=== PATIENT | male | born 1950 | race Caucasian/White ===

== ENCOUNTER 2021-10-09 02:57 | Inpatient (IN) | payer OTHER, MEDICARE ==
[~2021-10-09] VITALS: Ht 172.7 cm; Wt 87.7 kg
[~2021-10-09 02:57] MED LIST: CALCIUM + D3 E1 EACH PO; DIGOXIN250 MCG PO; IRON18 MG PO; METOPROLOL TART25 MG PO; MULTI-VITAMIN1 EACH PO; OMEPRAZOLE20 MG PO; POTASSIUM GLUCO99 MG PO; SERTRALINE HCL50 MG PO; SUPER B COMPLE1 EACH PO; WARFARIN SODIUM5 MG PO
--- NOTE | 2021-10-09 04:00 | NUR ---
PT ARRIVED TO ROOM 121, PT IS ALERT, CONFUSED. ELIJAH MORALES RN AND CHARGE PARAG HIDALGO RN ADMITTING PT.
--- NOTE | 2021-10-09 05:09 | NUR ---
PT FACES SCALE PAIN 4/10, PRN PAIN MED PROVIDED. ICE PACK ON LEFT HIP. IV WNL, FLUSHED WELL. PT WILL NOT LEAVE COVER OVER IV SITE. IV FLUIDS INFUSING PER ORDER. PT DISORIENTED TO ALL. PT MOVING AROUND IN BED FREQUENTLY, PULLING OFF HEART MONITOR, PULLING AT IV AND KICKING COVERS OFF. BED ALARM ON.
--- NOTE | 2021-10-09 05:23 | NUR ---
PT CONFUSED AT THIS TIME. HE IS NOT ORIENTED TO ANYTHING BUT SELF. HE HAS BEEN ADMINISTERED PAIN MEDICATION FOR FX HIP PAIN, HE IS ON TELEMETRY. HE IS ACTIVE IN BED, ATTEMPTED TO USE URINAL, DID NOT VOID AT THIS TIME.
--- NOTE | 2021-10-09 05:25 | NUR ---
BED ALARM ON FOR PT SAFETY ALSO ROOM ACROSS FROM NURSES STATION FOR CLOSE MONITORING, CALL LIGHT IN REACH
--- NOTE | 2021-10-09 05:45 | NUR ---
PT ADMITTED AT 0400, HE HAS DEMENTIA, ONLY ORIENTED TO SELF. NEEDS CLOSE MONITORING HE HAS BEEN TRYING TO PULL OFF TELEMETRY LEADS AND ATTEMPTING TO PULL OUT IV. BED ALARM ON FOR PT SAFETY, PT ROOM CLOSE TO NURSES STATION IN VIEW. CALL LIGHT IN REACH.
--- NOTE | 2021-10-09 06:23 | NUR ---
PT PULLED TELE OFF AND THREW IT ON THE FLOOR. CHANGED PT'S ATTENDS WITH HELP OF ANDREW ROSA. PT STATES HE IS IN PAIN BUT WAS GIVEN 0.5MG DILAUDID AT 0505. DR LOVETT CALLED TO CHECK ON PT, GAVE BRIEF UPDATE. PT IS VISABLE FROM RN STATION AND BED ALARM IS ON.
--- NOTE | 2021-10-09 06:52 | NUR ---
Dr Conner in room examining pt
--- NOTE | 2021-10-09 07:10 | NUR ---
this rn rececived report from julia mcbride. pt only oriented to self at this time. pt has just removed his iv, tele and underwear.
--- NOTE | 2021-10-09 08:00 | NUR ---
THIS RN IN PTS ROOM TO RESTART PTS IV AND GIVE PREOP ANTIBIOTIC AND TXA. PT TOLERATED TREMENTS WELL. LISSY COPPOLA IN ROOM PROVIDING 1ON1 CARE
--- NOTE | 2021-10-09 08:30 | NUR ---
THIS RN IN PTS ROOM TO ASSIST TO DO PTS WIPE DOWN. PT TOELRATED WELL
--- NOTE | 2021-10-09 10:00 | NUR ---
THIS RN CALLED PTS JACQUELINE ISIAH BIRCH TO GET CONSENT FOR ANESTHIA, CONSENT GIVEN
--- NOTE | 2021-10-09 10:19 | NUR ---
PT OFF FLOOR FOR SURGERY AT THIS TIME
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
--- NOTE | 2021-10-09 11:46 | NUR ---
10/09/21 1146 Sheets,Annetta 1136 PT ARRIVED TO PACU ON 8L VIA MASK AND ORAL AIRWAY IN PLACE. VSS. PT NONAROUSABLE AND RESP EVEN AND UNLABORED. JAW THRUST USED OFF AND ON.
--- NOTE | 2021-10-09 12:45 | NUR ---
PT ARRIVED BACK FROM SURGERY. PT APPEARS TO BE RESTING AT THIS TIME. KAYLEIGH RN REPORTED TO THIS RN THAT PT DOES HAVE SLEEP OBSTRUCTION AND STATED THAT PT SHOULD BE ON THE CPOX. THIS RN PLACED ON PT ON CPOX SATS MAINTAINING >92% ON ROOM AIR AT THIS TIME. DRESSING C/D/I WITH ICE PACK PLACED AT SITE
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
--- NOTE | 2021-10-09 13:45 | NUR ---
THIS RN IN PTS ROOM TO DO POST OPP #2. PT INCONTINENT OF URINE AT THIS TIME. LISSY COPPOLA TO ASSIST IN CHAGING PT. FULL BED CHANGE NEEDED. PT APPEARS VERY DROWSY BUT LISTENS TO COMMANDS. THIS RN NOTED THAT PTS DRESSING C/D/I. MORE NOTED BRUISING ON PTS BACK AND HIPS.
--- NOTE | 2021-10-09 14:30 | NUR ---
Spoke with [facility] and rehab about placement for this pt. They decline this pt.
--- NOTE | 2021-10-09 14:40 | NUR ---
POSTOP CHECK #3. PT RESTING COMFORTABLY AT THIS TIME. CPOX IN PLACE, APNIC BREATHING NOTED BUT SATS MAINTAINED WNL. DRESSING UNCHANGED- WNL- C/D/I
--- NOTE | 2021-10-09 15:20 | NUR ---
Called and spoke with [facility], Gilma, and Rosa Maria Becker in [place], there are no beds available for 2 weeks.
--- NOTE | 2021-10-09 15:45 | NUR ---
Called and spoke with Tracy Damico from [facility]. Ask about the [facility] Complex Placement team. She states this pt does not have an open case and he does not qualify for medicaid as he has too many resources. She did give me the number for complex placement. They are out of the office. I will contact them on Tuesday.
--- NOTE | 2021-10-09 15:50 | NUR ---
THIS RN IN PTS ROOM TO DO PTS POST OPP #4. PT RESTING AT THIS TIME. SOME SCANT SHADOWING NOTED ON PTS DRESSING. PT DOES NOT COMPLAIN OF PAIN AT THIS TIME, ONLY COMPLAINS WHEN HE IS CLEANED UP.
--- NOTE | 2021-10-09 16:41 | NUR ---
Spoke with Corie Jimenez [facility] Management. She will email Division and ask for direction for placement of this pt.
--- NOTE | 2021-10-09 17:00 | NUR ---
THIS RN IN PTS ROOM TO GIVE PT EVENING MEDS. PT GETTING CHANGED BY SELENE ROSA AND LISSY COPPOLA. PT AWAKE AND HAVING CONVERSATION WITH HIMSELF THAT THIS RN IS NOT FOLOOWING- FROM REPORT THIS IS BASELINE OF PT. PT TOOK MEDS WELL AND SIPPED WATER WELL.
--- NOTE | 2021-10-09 17:29 | NUR ---
MED REC COMPLETE
--- NOTE | 2021-10-09 19:47 | NUR ---
BEDSIDE REPORT FROM MATT ROSA, PT RESTING QUIELTY , RR EVEN 18 BPM, NO DISTRESS NOTED. FROM REPORT MATT ROSA SAID PT CONSUMED DINNER WELL, AWAKES AND COOPERATES WITH CARE THEN SLEEPS. REPORT IS HE HAS NOT SLEPT FOR 3 DAYS PRIOR TO SURGERY.
--- NOTE | 2021-10-09 21:39 | NUR ---
PT RESTING QUIETLY IN BED RR EVEN 20 BPM, NO DISTRESS NOTED AT THIS TIME.
--- NOTE | 2021-10-09 22:33 | NUR ---
PT RESTING IN BED EYES CLOSED RR EVEN AT 20 BPM, NO DISTRESS NOTED. PT ALERT TO NAME, HAD DRINK OF WATER, V/S COMPLETE, PT USED URINAL, AND HAD INCONT OF URINE, HE FLATUS POSITIVE, NO BM. HE ASSISTED WITH ROLLING IN BED FOR CHANGING DEPENDS AND CLEANING, NOTED RED AT SCROTUM FOLD RX POWDER APPLIED AFTER CLEANING, PT POSITIONED TO LEFT SIDE WITH PILLOW, FOR POSITION CHANGE. HE IS COOPERATIVE WITH ALL CARE.
--- NOTE | 2021-10-10 00:39 | NUR ---
PT ALERT TO RN AT BEDSIDE FOR ABX INFUSION, PT VERBALIZED HE NEEDS TO PEE, HE HAD SMALL INCONT IN ATTENDS, PT THEN VOIDED IN URINAL, NO BLOOD NOTED IN URINAL, WHEN CLEANING INCONT AND WIPE MEATUS NOTED TO HAVE SMALL AMOUNT OF LIGHT RED BLOOD DRIBBLE ON TO TISSUE. NO BLOOD IN ATTENDS. WILL MONITOR. APPEARS TO HAVE MILD TRAUMA FROM RIVERA PLACEMENT, PER POST OP XRAY REPORT RIVERA NOTED IN PLACE.
--- NOTE | 2021-10-10 02:10 | NUR ---
PT RESTING QUIETLY IN BED EYES CLOSED RR EVEN AT 20 BPM, NO DISTRESS NOTED.
--- NOTE | 2021-10-10 03:30 | NUR ---
ROUNDED ON PT ALERT TO STAFF AT BEDSIDE, JOSH COPPOLA ASKED IF PT NEEDED TO USE URINAL PT "YES, BADLY". PT VOIDED 200 ML IN URINAL, DID NOT NOTICE ANY SIGN OF BLOOD WITH CLEAN UP AFTER. PT REPOSITIONED, PILLOWED PLACED BETWEEN KNEES PT HAS HIS LEFT LEG TURNED IN AND RIGHT LEG NEARLY CROSSING LEFT. PT GRIMACED WHEN RE-POSITIONED AND BOOSTED UP IN BED, HE SAID HE NODDED WHEN ASKED IF HIS HIP WAS HURTING HE SAID "THATS OK". TRAMADOL ADMINISTER PER SCHEDULE AT THIS TIME. PT VERBALIZED HE IS COMFORTABLE AT THIS TIME.
--- NOTE | 2021-10-10 04:53 | NUR ---
PT HAS SLEPT COMFORTABLE OVER SHIFT, HE AWAKES EASILY AND HAS BEEN COOPERATIVE WITH CARE. HE HAS BEEN VOIDING IN URINAL WHEN OFFERED FREQUEST LESSENS INCONTINENCE. DESITIN POWDER IN ROOM FOR SCROTAL AND PANUS FOLDS RED, TURN Q2 HOURS. PAIN MEDICATIONS SCHEDULED. HE HAS FLATUS POSITIVE, ACTIVE BOWEL TONES, HE HAS BEEN TOLERATING REGULAR DIET WELL, NO NAUSEA. PILLOW PLACED BETWEEN LEGS HE ATTEMPTED TO CROSS HIS ANKLES, CONFUSED BUT COOPERATIVE, FOLLOW ING DIRECTION WELL, ABLE TO ASSIST IN TURNING IN BED FOR REPOSITION AND CHANGING DEPENDS. V/S STABLE ON ROOM. DRESSING CDI WITH SCANT DRAINAGE NOTED PROXIMAL END NO WARRANT SERVER THIS SHIFT. NOTED SCANT AMOUNT OF PINK RED BLOOD AFTER VOID AT MEATUS ONCE, PEPRHAPS FROM RIVERA PLACEMENT IN SURGERY PER XRAY REPORT. VOIDING MULTIPLE TIMES SINCE WITH NO PINK/RED BLOOD NOTED.
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
--- NOTE | 2021-10-10 08:50 | NUR ---
Scheduled medications administered, assessment complete. Pt sitting up in bed after breakfast watching tv. Alert, oriented to self, pleasant this am. VSS. IV site WNL. Dressing to L hip C/D/I. Pt reports no pain at this time.
--- NOTE | 2021-10-10 08:52 | NUR ---
patient is sitting up in the bed eating breakfast. warm washcloth and bed bath offered. call light with in reach. no further needs at this time.
--- NOTE | 2021-10-10 11:45 | NUR ---
Pt refuses lunch at this time, repositioned in bed and continues to watch tv, awakens to voice and has no needs.
--- NOTE | 2021-10-10 13:30 | NUR ---
Pt did not eat lunch today, ensure and cookie provided along with scheduled tramadol. Pt assisted to reposition and watching tv, states no needs. Call light in reach, in view of nurses station and curtain open.
--- NOTE | 2021-10-10 14:00 | NUR ---
Pt medicated with scheduled tramadol, states no pain at this time. Watching tv and in good spirits. Hip visualized, dressing C/D/I, no further shadowing or discharge noted.
--- NOTE | 2021-10-10 16:48 | NUR ---
Pt sitting up at bedside eating dinner, bed alarm on, directly visualized from nurses station. Pt on room air, no needs identified. Call light in reach
--- NOTE | 2021-10-10 17:12 | NUR ---
Scheduled meds provided, pt ate grapes from dinner tray and has sufficient PO intake of water, refuses other food/drinks. Watching tv, alert and oriented to self only. Able to take pills whole with water, no difficulty.
--- NOTE | 2021-10-10 17:51 | NUR ---
IN TO TAKE PATIENT OFF OF BED ESPINOZA. CLAY CARE DONE. NEW ATTENDS IN PLACE. LINENS CHANGED. VITALS AND I&O'S CHARTED. CALL LIGHT IN REACH. BED ALARM ON. NO FURTHER NEEDS AT THIS TIME.
--- NOTE | 2021-10-10 18:34 | NUR ---
Scheduled medications administered, pt states no pain at this time. Oriented to self only. Pt resting in bed with no needs, on room air. Lights dimmed with nightlight on, in view of nurses station and curtain partially open
--- NOTE | 2021-10-10 19:28 | NUR ---
BEDSIDE REPORT FROM KENNETH ROSA, PT RESTING IN BED ALERT. HE IS FIGITING WITH TISSUES TAKING IN AND PUTTING THEM BACK IN BOX. PER REPORT HE HAD JUST THOUGHT HE WAS GOING TO GET UP AND PACK HIS STUFF TO GO HOME, PT REORIENTED AND COOPERATIVE WITH CARE.
--- NOTE | 2021-10-10 19:45 | NUR ---
pt set off alarm, pt is concered he is in trouble for not looking like he is busy at work, reassured pt thet we have it covered, and no one will get in trouble, new attends in place, bed alarm is set, no further needs,, rn aware
--- NOTE | 2021-10-10 20:15 | NUR ---
pt trying to sit up in bed, states he needs to be working, trying to keep pt redircted, bed alarm is set, no further needs
--- NOTE | 2021-10-10 21:20 | NUR ---
PT RESTING IN BED WATCHING TV.
--- NOTE | 2021-10-10 21:48 | NUR ---
INTO PT ROOM TO ROUND, PT WATCHING TV, HE SAID "I NEED TO PEE" HE IS DISORIENTED TO EVENT AND HIP FX. ASSIST WITH URINAL, VOIDED 250ML CLEAR YELLOW URINE, HE ALSO HAD MEDIUM INCONT. OF URINE, PT CHANGED HE REPORTED INCREASE IN PAIN, HE ALSO GRIMACED, GAVE PT, SCHEDULED TRAMADOL AND SLEEP AID TRAZODONE 100MG PRN. PT REPOSITIONED AND PILLOW PLACED BETWEEN KNEES HE BENDS HIS LEFT KNEE INTO RIGHT. WILL APPLY ICE TO LEFT HIP WELL.
--- NOTE | 2021-10-10 22:59 | NUR ---
PT RESTLESS, GRIMACE WITH MOVEMENT, 5/10 AT LEFT HIP, NORCO 2 TABS PRN ADMINISTERED AT THIS TIME.
--- NOTE | 2021-10-11 00:33 | NUR ---
PT PULLING BLANKETS OFF AND ATTEMPTING TO GET OUT OF BED, HE VERBALIZES THAT HE NEEDS TO GO TO WORK, THIS RN TOLD HIM IT IS HIS DAY OFF AND HE NEEDS TO REST UP AT NIGHT PER DR. RAMON, HE THEN ASKED WHERE HIS IS, THIS RN SAID THE IS PROBABLY AT HOME ITS MIDNIGHT THIRTY, HE "YEAH PROBABLY" PT THEN REPOSITIONED IN BED, COVERED BACK UP, HE AGREES TO TRY TO SLEEP.
--- NOTE | 2021-10-11 00:44 | NUR ---
PT RESTING IN BED FIGITING WITH BLANKETS, HE REPORTS NO PAIN AT HIS HIP.
--- NOTE | 2021-10-11 00:50 | NUR ---
PT ATTEMPTING TO EXIT BED, SET OFF ALARM, HE SAID HE NEEDS TO GET HIS MOTOR DOWN THERE POINTING AT THE SCD MACHINE, EXPLAINED THIS TO PT, HE SAID NO ITS NOT, THIS RN, WELL IT IS GOING TO STAY RIGHT HERE WITH YOU. EXPLAINED HE NEEDS TO SLEEP NOW SO THAT HE CAN WORK WITH PHYSICAL THERAPY TOMORROW.
--- NOTE | 2021-10-11 02:36 | NUR ---
PT RESTING IN BED EYES CLOSED, RELAXED POSITION, WILL HOLD TRAMADOL UNITL 0300 TO ALLOW PT TO SLEEP.
--- NOTE | 2021-10-11 04:08 | NUR ---
PT WAS NOTED TO BE PAINFUL EARLY IN SHIFT GRIMACING WITH REPOSITIONING, VERBALIZED THAT HURTS, PT GIVEN DOSE OF NORCO AND THIS WAS AFFECTIVE, PT TOLERATED REPOSITIONING WITHOUT GRIMACING/MOANING OR VERBALIZING INCREASE IN PAIN, HE ALSO BECAME FAR MORE ACTIVE IN BED, ATTEMPTING TO GET OUT OF BED FREQUESTLY, HE HAS NOT SLEPT WELL OVER NIGHT, POSSIBLE 2 HOURS TOTAL OF SLEEP. HE REMAINS CONFUSED ABOUT WHERE/WHEN/WHAT IS HAPPENING DEPITE REORIENTATION ATTEMPTS, HE HAS VOIDED QUANTITY SUFFICIENT IN URINAL WITH SMALL INCONT WELL, SURGICAL DRESSING HAS SCANT AMOUNT OF DRAINAGE NO NEW DRAINAGE THIS SHIFT IT IS INTACT. ON ROOM AIR, TOLERATING PO INTAKE WELL.
--- NOTE | 2021-10-11 07:34 | NUR ---
THIS AM AT SHIFT CHANGE PT PULLED OFF SURGICAL DRESSING, CONSIDERED LEAVING OPEN TO AIR FOR TO SEE, HOWEVER PT KEPT REACHING TO TOUCH THE INCISION, CONCERN FOR HIM PULLING AT FELIPA SO REDRESSED, AND COVERED WITH PILLOW CASE VELCROED INTO DEPENDS, PT GIVEN FIGIT ITEM ON TABLE OVER BED TO DETOUR FROM REMOVING DRESSING AGAIN.
--- NOTE | 2021-10-11 07:34 | NUR ---
Report received from Meryl ROSA. Pt resting in bed with even and unlabored respirations, watching tv. Pt has no needs at this time. Will continue plan of care
--- NOTE | 2021-10-11 07:56 | NUR ---
PT AWAKE IN BED WATCHING TV. WARM CLOTH GIVEN FOR FACE. FRESH ICE WATER GIVEN. WHITE BOARD UPDATED. CALL LIGHT WITHIN REACH. NO FURTHER NEEDS AT THIS TIME
--- NOTE | 2021-10-11 08:16 | NUR ---
Scheduled medications administered, assessment complete. VSS. Pt alert, oriented to self only. Cooperative with care. TTWB with 1PA to chair for breakfast. SCDs in place, teds. Dressing to L hip C/D/I. Pt on room air. Chair alarm in place. No further needs, in view of nurses station
--- NOTE | 2021-10-11 09:44 | NUR ---
PT HAS NOT VOIDED. MOE MEDINA NOTIFIED.
--- NOTE | 2021-10-11 10:00 | NUR ---
Pt requiring frequent redirection, distraction tools, communication as he continues to exit bed and is not cognizant of toe touch weight bearing on L leg. Bed alarm on.
--- NOTE | 2021-10-11 10:06 | NUR ---
Pt continually exiting chair, back to bed with 2PA assist, bed alarm on. Pt reports pain with ambulation, none once at rest. Pt given towels to fold, engaged and attentive to this task. In view of nurses station.
--- NOTE | 2021-10-11 10:45 | NUR ---
In patient room to assist with repositioning, chase wrap given to hold, towels to fold.
--- NOTE | 2021-10-11 11:33 | NUR ---
Pt given playdough and cup with JOURNALISM TEACHER and RN at bedside
--- NOTE | 2021-10-11 12:30 | NUR ---
PT AWAKE IN CHAIR AND PLEASANTLY CHATTY. PT PLAYING WITH PLAY-KOTA AND A DECK OF CARDS. THIS PYRIDINE RECOVERY OPERATOR HELPED THE PT ORGANIZE CUPS AND FOLD HAND TOWELS. CHAIR ALARM ON.
--- NOTE | 2021-10-11 13:18 | NUR ---
Pt sitting up to chair after walking in hallway with physical therapist. Occupied with playdough and cards. Has no needs identified at this time. Chair alarm in place, in view of nurses station.
--- NOTE | 2021-10-11 14:30 | NUR ---
Pt back to bed with 2PA and FWW. He states he is "not tired", immediately closes eyes, even and unlabored respirations. Belongings within reach, call light in reach, bed alarm on, in view of nurses station.
--- NOTE | 2021-10-11 17:30 | NUR ---
Pt assisted to use urinal sitting at EOB. Repositioned in bed with 2PA. Pt content at this time, confused however. Call light in reach, in view of nurses station
--- NOTE | 2021-10-11 17:46 | NUR ---
Pt uses call light, states needing to "get up and go to work" attempted to console and redirect. Pt grimaces with movement, restless, this RN offers pain pill and pt states "I would try one". 1tab [place] administered. Will cont to monitor
--- NOTE | 2021-10-11 18:06 | NUR ---
PT WALKED TO THE BATHROOM WITH 2PA AND FWW AND GAIT BELT. PT HAS IN ICE PACK IN BED NOW WATCHING TV. CALL LIGHT WITHIN REACH. BED ALARM ON. NO FURTHER NEEDS AT THIS TIME.
--- NOTE | 2021-10-11 22:22 | NUR ---
PT ATTEMPTNG TO GET OUT OF BED, RN INTO ROOM PT VERBALIZED NEED TO PEE, NO OTHER STAFF AVAILABLE TO ASSIST TO AMBULATE AT THIS TIME. PT ASSISTED IN USING THE URINAL, HE WAS ALSO INCONTINENT IN DEPENDS. PT COOPERATIVE WITH CARE. BUSINESS INTELLIGENCE DEVELOPER BAILEY AND ANAT WATERMAN INTO ASSIST WITH CHANGING PATIENT OF INCONTINENCE PT ABLE TO ASSIST IN ROLLING IN BED. PT CLEANED AND RX POWDER APPLIED. HS MEDS WITH TRAZODONE 100MG GIVEN PRN FOR SLEEP AID PASS COMPLETE, ASSESSMENT AND V/S COMPLETE. PT VERBALIZED NO OTHER CONCERNS AND THANKED STAFF FOR ASSISTANCE. HE HAS BEEN COOPERATIVE WITH CARE.
--- NOTE | 2021-10-11 23:32 | NUR ---
PT SET OFF BED ALARM ATTEMPTING TO EXIT BED, THIS RN INTO ROOM, PT SAID, I NEED TO PEE. NO STAFF AVAILABLE TO ASSIST SECOND TO AMBULATE, PT ASSIST TO VOID USING URINAL. VOIDED 200ML CLEAR YELLOW URINE.
--- NOTE | 2021-10-12 00:54 | NUR ---
PT SET OFF BED ALARM, STAFF INTO ROOM, ASKED HIM WHERE ARE YOU GOING? HE SAID, "I AM GOING TO GO FOR LUNCH" RE-ORIENTED PT TO THE TIME 0100 IN THE AM, HE SAID "YOUR JOKING ME" RN SAID NO IT REALLY IS LOOK OUT THE WINDOW, HE DID THEN AND SAID "WHAT" HE LOOKED AT ANAT WATERMAN AND SAID "I SHE RIGHT?" COLUMBA SAID "YES SHE IS RIGHT"
--- NOTE | 2021-10-12 00:59 | NUR ---
PT AGAIN ATTEMPTING TO EXIT BED HE SAID, "I'M GOING TO PUT MY SHOES ON AND GO TO LUNCH", ATTEMPTED TO REORIENT PT TO TIME, HE SAID "OK I WILL GO BACK TO SLEEP NOW" BED ALARM ON FOR SAFETY.
--- NOTE | 2021-10-12 01:12 | NUR ---
pt attempted to get out of bed setting off bed alarm, staff into room, pt again said he is going to go to lunch, sat pt up at this time with lunch box sandwich, he is satisfied with this arrangement at this time.
--- NOTE | 2021-10-12 01:55 | NUR ---
PT ATTEMPTING TO PUSH OVER BEDSIDE TABLE. INTO PT ROOM TO ASSESS HIS NEEDS. HE SAID HE WANTS THE TABLE MOVED, HE TURNED TO RIGHT SIDE OF BED AND APPEARED TO BE TALKING TO SOMEONE, THIS RN ASKED IF HE SAW SOMEONE OVER THERE?, HE LAUGHED AND SAID "NO", THEN AGREED TO SETTLE DOWN TO SLEEP, BED ALARM ON FOR PT SAFETY.
--- NOTE | 2021-10-12 02:22 | NUR ---
PT IS TALKING TO SOMEONE IN BED WITH HIM, RN ASKED WHO ARE YOU TALKING TO? HE SAID SANNA AND POINTED BEDSIDE HIM IN BED, THIS RN SAID, "I DONT SEE ANYBODY" PATIENT SAID, "SHE IS RIGHT THERE, I HAVE KNOWN HER HER WHOLE LIFE" THIS RN THEN TALKED TO PT ABOUT TRYING TO GET SOME SLEEP, HE SAID "OK, I CAN TRY TO DO THAT" BED ALARM ON FOR SAFETY.
--- NOTE | 2021-10-12 03:08 | NUR ---
PT CURRENTLY RESTING IN BED EYES CLOSED RR EVEN AT 16BPM.
--- NOTE | 2021-10-12 04:35 | NUR ---
PT AWAKE MOST OF SHIFT, SLEPT LAST THREE HOURS, PAINFUL THIS AM WITH REPOSITIONING, ONE TAB NORCO GIVEN WITH ULTRAM. PT RESTLESS WANTING TO GO TO LUNCH AT 0100, FINALLY PROVIDED A LUNCH BOX THAT HE CONSUMED HALF OF HE WAS SHARING WITH JACQUELINE HIS PER HIS REPORT, NO VISITORS IN PT ROOM AT THIS TIME. ASKED PT IS HE SAW SOMEONE HE LAUGHED AND SAID NO, LATER HE WANTED TO TO A MOVIE ON FOR HIMSELF AND JANUARY HE POINTED TO IN BED WITH HIM, NO OTHER PEOPLE IN ROOM, PT INSISTED SHE WAS IN THE BED WITH HIM. PT THEM SLEPT. HAS VOIDED Q.S. OVER SHIFT, HAS BEEN COOPERATIVE WITH CARE, ALTHOUGH CONFUSED TO ALL BUT SELF.
--- NOTE | 2021-10-12 06:22 | NUR ---
CALLED DUE TO PT ESCALATION THIS AM , PT UP TWO STAFF ASSIST WITH FWW TO BATHROOM, PT REPORT INCREASE IN PAIN, PT VOIDED 300ML IN TOILET, THEN ASSISTED BACK PT WAS GOING TO ATTEMPT TO PEE ON BED, DIRECTED PT TO SIT DOWN ON BED, HE RAISED HIS VOICE AND SAID "I DID NOT PEE....AT ALL, I AM GOING TO PEE RIGHT HERE" URINAL HANDED TO PT AND ASSISTED TO VOID, PT SAT AT EDGE OF BED TRYING TO VOID, GAVE PT AM MEDS, HE SAID HE DIDNT NEED THEM , RN EDUCATED/REORIENTED PT THAT HIS HIP HAS HAD SURGERY AND IT WILL CONTINUE TO HURT MORE WITH ACTIVITY. HE AGREED THAT HIS HIP HURT AND HE SHOULD HAVE PAIN MEDS, HE THEN REFUSED TO GET BACK IN BED, HE SAID HE WANTS TO SIT UP, ASKED IF HE WANTS TO SIT UP IN RECLINER HE SAID "YES", ASSITED TO STAND, PT THEN FACED RECLINER AND SAID IM GOING TO PEE RIGHT HERE, DIRESTED PT TO SIT THAT CHAIR IS THE RECLINER, HE THEN TURNED AND PULLED HIS ARM AWAY FROM MY ASSISTANCE AND SAT DOWN HARD. HE THEN FLUSHED RED AND SAID "IM FINE" IN AN RAISED VOICE. ANAT WATERMAN ATTEMPTING TO GET V/S PT STOPPED TALKING TO HER, CLINCHING JAW MUSCLES, THIS RN ON OTHER SIDE OF BED, TOLD SUMMONS SERVER TO GET OUT OF THAT AREA, SINTA TURNED AROUND AND PT IS MASTURBATING. STAFF WENT TO LEAVE ROOM, PT BEGAN TO GET UP OUT OF RECLINER WITH FOOT PORTION UP. TURNER SPLITTER MACHINE OPERATOR MOE OBREGON AND ANDREW WOOD HACKER INTO ROOM TO ASSIST, PT NOT WANTING TO COOPERATE, SECURITY CALLED PT THEN SETTLED INTO BED WITH ASSIST, THIS RN WAS GIVEN MEDICATION ORDERS TO GIVE SEROQUEL AM DOSE AND 2MG OF HALDOL, THIS RN INTO ROOM PT AGAIN MASTURBATING, FLOAT RN INTO ROOM, PT STOPPED, AGREED TO SWALLOW MEDICATIONS AND HALDOL IV GIVEN.
--- NOTE | 2021-10-12 06:36 | NUR ---
PT NOW CALM AT REST IN BED. EYES OPES, NO DISTRESS NOTED
--- NOTE | 2021-10-12 07:33 | NUR ---
Report received from Meryl ROSA. Pt resting in bed with eyes closed, even and unlabored respirations. Awakens to voice, pleasant and cooperative this am. No needs identified at this time, bed alarm on, will continue plan of care.
--- NOTE | 2021-10-12 08:08 | NUR ---
PT RESTING IN BED. BED ALARM ON. WILL CHECK BACK WITH PT FOR BREAKFAST. CALL LIGHT WITHIN REACH. NO FURTHER NEEDS AT THIS TIME.
--- NOTE | 2021-10-12 08:44 | NUR ---
Pt sleeping at this time, allowed to rest undisturbed as per report pt did not sleep well last night requiring PRN meds
--- NOTE | 2021-10-12 09:15 | NUR ---
Pt resting in bed with eyes closed, respirations even and unlabored. Bed alarm in place. Able to visualize from nurses station
--- NOTE | 2021-10-12 10:15 | NUR ---
All medications administered, pt awakens easily to voice, cooperative with care. Alert, disoriented to all, tells this RN that "the children had a great program last night". Dressing to L hip C/D/I, no drainage, pt reports no pain, scheduled tramadol provided. bed alarm on, call light in reach
--- NOTE | 2021-10-12 10:52 | NUR ---
PATIENT UP TO CHAIR, 1PA FWW. PATIENT FOLLOWED DIRECTIONS WELL. CLAY CARE DONE. NEW ATTENDS IN PLACE. VITALS AND I&O'S CHARTED. CALL LIGHT IN REACH. CHAIR ALARM ON. NO FURTHER NEEDS AT THIS TIME.
--- NOTE | 2021-10-12 11:00 | NUR ---
Was able to speak with Patricia from [facility] in [place]. She requests chart. They will take combative pt with behaviors. She does not a availability today, due to staffing. I will fax his chart, she does need a copy of his covid vaccinations. They do not accept pt who have not been vaccinated. Will contact pts .
--- NOTE | 2021-10-12 14:00 | NUR ---
Received a return call from Keren from [facility]. She is cont. to work for medicaid for this pt. I discussed with her I spoke with Tracy Damico and she felt per notes this pt does not qualify. This pt is over income and resources. Keren is not in agreement with this and states she is working with for a POA and they can work towards payin for the pt. Discussed I am attempting to find placement in a SNF for rehab due to fx hip. This may difficult due to pts behaviors. She will call me with any updates.
--- NOTE | 2021-10-12 14:30 | NUR ---
Called and spoke with pt's Dede. Updated I am attempting to place in a SNF. I am in need of a Covid vaccination card. She states pt was vaccinated at [facility] in [place]. I will call and requests pts vax card.
--- NOTE | 2021-10-12 14:45 | NUR ---
Pt done with physical therapy and back to chair. Noted to be grimacing and slightly restless, PRN norco and scheduled tylenol administered. VSS, alert, I/Os complete. Pt refuses to use the urinal and attends is dry.
--- NOTE | 2021-10-12 15:08 | NUR ---
Spoke with Dr. Conner updated, I have not been able to find placement as pt was declined by [facility], [facility] and [facility] are not accepting pts. [facility] does not have any beds open. All are concerned about pts behaviors. [facility] may have availability in the near future, but do not as they don't have staff. Requested rx and note for walker for this pt. He will complete tomorrow.
--- NOTE | 2021-10-12 15:13 | NUR ---
Spoke with [facility] in [place]. They will fax documentation for Covid Vaccinations.
--- NOTE | 2021-10-12 16:35 | NUR ---
Faxed referral to Patricia at [facility] in [facility] for rehab. Face sheet, covid vaccination sheet from [facility], progress notes, surgical note, H&P, PT eval and notes.
--- NOTE | 2021-10-12 17:00 | NUR ---
Scheduled medications administered, pt sitting up in chair, awakens to voice. States no pain and no needs. He takes pills whole with water. Call light in reach
--- NOTE | 2021-10-12 19:04 | NUR ---
PATIENT SITTING IN CHAIR WATCHING TV. PATIENT IS CALM AND COOPERATIVE. VITALS AND I&O'S CHARTED. PATIENT UP TO BATHROOM, 1PA FWW. PATIENT DOING WELL USING FWW AND AMBULATING TO BATHROOM. PATIENT THEN TO BED, 1PA FWW. CLAY CARE DONE. NEW ATTENDS IN PLACE. FRESH WATER GIVEN. CALL LIGHT IN REACH. BED ALARM ON. NO FURTHER NEEDS AT THIS TIME.
--- NOTE | 2021-10-12 19:35 | NUR ---
IN TO SEE PT, PT RESTING IN BED AWAKE WATCHING TV. RECIEVED HAND OFF REPROT. NO NEEDS PER REQUEST. CALL LIGHT IN REACH.
--- NOTE | 2021-10-12 20:00 | NUR ---
PATIENT SEEN NO GOWN AND C/O COLD. THIS MEAT BUTCHER PUT NEW GOWN AND WARM BLANKET PROVIDED. PATIENT IS UP IN THE CHAIR AND CHAIR ALARM ON FOR SAFETY.
--- NOTE | 2021-10-12 20:20 | NUR ---
BED ALARMING. IN TO ASSIST. pt SITTING ON SIDE OF BED. REMINDED pt THAT HE HAD A BROKEN HIP AND NEEDED ASSISTANCE TO WALK. pt STATED "I DO NOT, I DIDN'T DO ANYTHING TO MY HIP!" WHEN OFFERED THE WALKER pt LOUDLY STATED "I DON'T NEED IT! YOU NEED TO GIVE ME SOME SPACE!" THIS RN GAVE pt SPACE. pt ATTEMPTED TO STAND A FEW TIMES. REPEATLY ASKED FOR HIS THE BE CALLED. STATED "YOU NEED TO STOP LYING TO ME AND CALL MY . I'M GOING HOME." SEVERAL ATTEMPTS TO REORIENT TO SITUATION. pt STATED "I DON'T LIKE THIS SHOW" GESTURING TO THE TV "THE BLACK PEOPLE ARE ALL BAD" TV CHANNEL CHANGED TO SPORTS. pt ATTEMPTED TO GET TO CHAIR, REFUSED WALKER. CHAIR MOVED NEXT TO BED. pt WAS ABLE TO MOVE SELF TO CHAIR BY STANDING AND SCOOTING ON HIS GOOD LEG, WHEN BEARING ANY WEIGHT ON LEFT LEG pt GRIMACED. pt REFUSED ASSISTANCE. SETTLED IN CHAIR. PRIMARY RNS IN ROOM, UPDATED ON SITUATION.
--- NOTE | 2021-10-12 20:36 | NUR ---
IN TO SEE PT, SCHEDULED MEDICATIONS DUE. PT UP IN CHAIR WATCHING TV. PT ALERT TO SELF ONLY. PLEASANT ANDC OOPERATIVE WITH STAFF AND CARES. VSS OBTAINED. NO OTHER NEEDS OR REQUESTS AT THIS TIME. CALL LIGHT IN REACH.
--- NOTE | 2021-10-12 22:24 | NUR ---
IN TO SEE PT, SCHEDULED MEDICATIONS GIVEN. ASSESSMENT DUE. PT SITTING UP IN CHAIR WATCHING TV. PLEASANT AND COOPERATIVE WITH CARES. NO OTHER NEEDS OR REQUESTS AT THIS TIME. CALL LIGHT IN REACH.
--- NOTE | 2021-10-13 01:20 | NUR ---
IN TO CHECK ON PT. PT SITTING UP IN CHAIR. PT DEDNIES PAIN AND DISCOMFORT. PLEASANT AND COOPERATIVE WITH STAFF AND CARES. NO NEEDS OR REQUESTS AT THIS TIME. CALL LIGHT IN REACH.
--- NOTE | 2021-10-13 02:20 | NUR ---
IN TO SEE PT, SCHEDULED TRAMADOL GIVEN PER ORDER. ASSISTED PT UP TO USE RESTROOM. PT ABLE TO VOID WITHOUT DIFFIUCLTY. PT ASSISTED TO BED. BED ALARM ON. PT DENIED PAIN, BUT VERBALIZED WHILE AMBULTATING TO BATHROOM. ASSESSMENT COMPLETED. NO OTHER NEEDS OR REQUESTS AT THIS TIME. CALL LIGHT IN REACH.
--- NOTE | 2021-10-13 03:34 | NUR ---
PT RESTING IN BED. EQUAL CHEST RISE AND FALL. BED ALARM ON. CALL LIGHT IN REACH.
--- NOTE | 2021-10-13 03:43 | NUR ---
IN TO SEE PT. PT ASSISTED UP TO CHAIR. NO OTHER NEEDS. CALL LIGHT IN REACH.
--- NOTE | 2021-10-13 06:20 | NUR ---
SCHEDULED MEDICATIONS GIVEN. PT DENEIS PAIN. UP IN CHAIR WATHCING TV. NO OTHER NEEDS, CHAIR ALARM ON, CALL LIGHT IN REACH.
--- NOTE | 2021-10-13 06:25 | NUR ---
ALERT TO SELF, FORGETFUL. REG DIET. 2P SBA WITH WALKER. CONT. RA. PAIN MAGEMENT WITH TRAMADOL. UP TO CHAIR. SL. WORKING WITH PT. RAMIREZ ON CHAIR AND BED FOR SAFETY. EASILY REDIRECTED. MEDICATION [place]O WITH WATER.
--- NOTE | 2021-10-13 07:20 | NUR ---
Report received from Bon ROSA. Pt sitting up in chair, awake, oriented to self only. He states his "hip hurts", per report pt just received pain medication, ice to L hip. Will continue to monitor. Pt states no other needs. Call light in reach, chair alarm in place, in view of nurses station
--- NOTE | 2021-10-13 08:30 | NUR ---
scheduled medications administered, assessment complete. Pt complains of hip pain, 1 tab norco provided along with ice pack to L Hip, C/D/I dressing. Pt up to chair. VSS, Alert but oriented to self only. Pt cooperative with care at this time. Chair alarm in place. In view of nurses station, call light in patient's hand
--- NOTE | 2021-10-13 09:54 | NUR ---
PATIENT UP TO BATHROOM AND BACK TO CHAIR, 1PA FWW. PATIENT FOLLOWING DIRECTIONS WELL AND BEING COOPERATIVE. VITALS AND I&O'S CHARTED. CALL LIGHT IN REACH. NO FURTHER NEEDS AT THIS TIME.
--- NOTE | 2021-10-13 10:03 | NUR ---
Called [facility]. Admission states they do take pt with dementia and who are combative. They are full with a 6 week waiting list. Called [facility] [employer] and asked if they have a list of SNFS that will take pt that can be combative. Pt has not been combative since admission to the medical floor and is in fact pleasant.
--- NOTE | 2021-10-13 10:40 | NUR ---
Spoke with Valentin, he is pleasant. Thinks he is here to start a new job and wanting to know what his atire will be. Also wanting to know who the Sergeant in charge is.
--- NOTE | 2021-10-13 11:10 | NUR ---
Pt continues to sit up from chair, chair alarm alarming, pt reminded to sit back in chair. Scheduled tramadol administered. New ice pack to L hip. Warm blankets provided. Pt becoming slightly restless to leave, attempted to redirect. Will continue to monitor.
--- NOTE | 2021-10-13 12:15 | NUR ---
Crystal from [facility] here to eval another pt. Asks if she can evaluate Valentin as he had been sedated last time she attempted to evaluate. In to patients room and Christina evaluated. She will discuss with their director if they will consider dariusz this pt.
--- NOTE | 2021-10-13 13:45 | NUR ---
Pt noted to be grimacing, new ice pack given, prn [place] and tramadol administered. Pt up to BR with 1PA and FWW, void and BM, back to bed, bed alarm on. Call light in reach, in view of nurses station, no further needs at this time
--- NOTE | 2021-10-13 15:41 | NUR ---
PATIENT PULLED IV OUT, SITTING AT BEDSIDE WITH BED ALARM ON.
--- NOTE | 2021-10-13 16:17 | NUR ---
LEXUS REPLACED TO [facility].
--- NOTE | 2021-10-13 16:40 | NUR ---
Attempted to call Kaylen from [facility] to check where they are on POA or guardianship. Let message stating it is now my understanding this pt does not have any charges or restraining order against him. He will need to discharge to home. I discussed this with Corie Jimenez from [employer] and they are discussing with legal as pt has remained at the hospital since Sep 15 as [facility] has been stating he cannot return home.
--- NOTE | 2021-10-13 16:45 | NUR ---
Spoke with [facility]. They have 1 bed open and may have more this week. Faxed chart for her to review.
--- NOTE | 2021-10-13 17:18 | NUR ---
Scheduled medications adminstered. Pt sitting up at edge of bed, eating dinner, talkative and cooperative with care. Takes verbal cues to take pills after several attempts.
--- NOTE | 2021-10-13 18:37 | NUR ---
Sat with patient and talked for approx 30 min, he is calm and cooperative with staff at this time, has moments of confusion/agitation but is redirectable without further PRN meds.
--- NOTE | 2021-10-13 19:20 | NUR ---
PT UP TO USE THE BATHROOM WITH DISHA wild. PT RECLINED IN CHAIR AT THIS TIME. NO NEEDS. CALL LIGHT IN REACH.
--- NOTE | 2021-10-13 20:12 | NUR ---
SCHEDULED MEDICATIONS GIVE, PT DENIES PAIN. PT UP IN CHAIR. ASSESSMENT COMPLETED.
--- NOTE | 2021-10-13 20:15 | NUR ---
PATIENT IS 1 ON 1 WITH STAFF. PATIENT IS COMBATIVE AND IS THROWING HIS BELONGINGS. PATIENT IS NOT REDIRECTABLE AT THIS TIME. STAFF WILL REMAIN IN ROOM WITH PATIENT FOR SAFETY.
--- NOTE | 2021-10-13 20:57 | NUR ---
SCHEDULED TRAZAODONE 50MG GIVEN PER ORDER. MOE NEIL SITTING IN ROOM EITH PT. PT IN CHAIR. CALL LIGHT IN REACH.
--- NOTE | 2021-10-13 21:18 | NUR ---
PATIENT IS AGITATED AND WILL NOT STAY IN HIS CHAIR. PATIENT OFFERED TO WALK, PATIENT REFUSES. PATIENT HAS THROWN ALL OF HIS STUFF OFF HIS NIGHT TIME TABLE. PATIENT HAS BECOME A 1 ON 1. PATIENT IS NOT REDIRECTABLE AT THIS TIME. IV STARTED. PRN AGITATION MEDICATION GIVEN PER ORDER. PATIENT REMAINS 1 ON 1 WITH STAFF PRESENT IN THE ROOM.
--- NOTE | 2021-10-13 22:20 | NUR ---
PATIENT ASSISTED TO THE RESTROOM A 1PA W/FWW. PATIENT WAS ABLE TO VOID AND HAVE BM. PATIENT IS RESTING IN RECLINER WITH CHAIR ALARM ON. PATIENT GIVEN SCHEDULED PAIN MEDICATION. CALL LIGHT IN REACH.
--- NOTE | 2021-10-13 22:51 | NUR ---
PATIENT ASSISTED TO THE RESTROOM A 1PA W/FWW. PATIENT WAS ABLE TO VOID. PATIENT IS BACK IN RECLINER RESTING. CHAIR ALARM ON FOR SAFETY. BELONGINGS ARE WITHIN REACH. PATIENT IS WITHIN EYE SIGHT OF RN STATION.
--- NOTE | 2021-10-14 01:00 | NUR ---
PT RESTING IN CHAIR WITH EYES CLOSED. EQUAL CHEST RISE AND FALL. CALL LIGHT IN REACH.
--- NOTE | 2021-10-14 02:50 | NUR ---
in to see pt. scheduled tramadol given per order. pt reports pain 11/12. assisted pt to restroom to void. pt up in recliner. mo other needs. chair alarm on, call light in reach.
--- NOTE | 2021-10-14 03:54 | NUR ---
IN TO SEE PT, ASSESSMENT DUE. PT SITTING UP IN CHAIR. COLORED PENCILS AND PAPER PROVIDED. PT DENIES PAIN. IV FLUSHING WELL. NO S/SX OF PHELIBITIS OR INFILTRATION. CHAIR ALRAM ON. CALL LIGHT IN REACH.
--- NOTE | 2021-10-14 06:23 | NUR ---
ALERT ONLY TO SELF, REG DIET. RA. FALL RISK CHAIR ALARM. 1 PA WITH WALKER. NEEDS RE-ORIENTING AND CUEING. IV PLACED TO RFA, SL. WORKING WITH PT. DRESSING TO LEFT HIP C/D/I. PRN AGITATION MEDICATION GIVEN X 1.
--- NOTE | 2021-10-14 07:15 | NUR ---
BEDSIDE REPORT FROM LASHAY ROSA ORIENT WITH AYESHA ROSA, PT SITTING UP IN RECLINER WITH BEDSIDE TABLE, HE HAS ITEMS ON TABLE TO FIGIT WITH, HE HAS BEEN FOLDING TOWELS, PER REPORT FROM CONTENT ASSISTANT HE HAS REQUIRED HALDOL X1 EARLY IN SHIFT THIS WAS AFFECTIVE, PT HAS BEEN COOPERATIVE PER REPORT.
--- NOTE | 2021-10-14 08:07 | NUR ---
PT COOPERATIVE WITH CARE THIS AM AND ASSESSMENT. AM MEDICATIONS PASSED, V/S COMPLETE THIS AM.
--- NOTE | 2021-10-14 09:32 | NUR ---
PT SITTING UP IN RECLINER, HE HAS CONSUMED 100% OF BREAKFAST.
--- NOTE | 2021-10-14 09:45 | NUR ---
RN MANNY NOTIFIED OF NON EXISTENT AM OUTPUT. CALL LIGHT WITHIN REACH, NO FURTHER NEEDS AT THIS TIME. PT'S BRIEF IS DRY.
--- NOTE | 2021-10-14 10:30 | NUR ---
Spoke with Valentin. Gave him coloring pts with color crayons. He is tearing his playing cards apart. Cont. confused.
--- NOTE | 2021-10-14 11:13 | NUR ---
PT SITTING IN CHAIR, PLAYING CARDS. PT HAS TV ON AND SEEMS PLEASANT. SAID PAIN IS LESS EACH DAY. GAVE GIsaakPOST, HE HANDED TO AN IMAGINARY PERSON IN WHO HE SAID, "DOES ALL THE READING". GAVE BLESSING AND WILL FOLLOW
--- NOTE | 2021-10-14 12:04 | NUR ---
PT ATTEMPTING TO GET OUT OF CHAIR, CHAIR ALARM SET OFF, RN INTO ASSIST PT, LUNCH TRAY ARRIVED, PT SET UP TO EAT. HE SAID, "HE NEEDS A TRAY" POINTING BACK BEHIND
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
--- NOTE | 2021-10-14 14:39 | NUR ---
PT RESTING IN BED EYES CLOSED, ALERT TO RN AT BEDSIDE.
--- NOTE | 2021-10-14 15:02 | NUR ---
PT UP TO SIDE OF BED, SET OFF BED ALARM. RN INTO ROOM, ASKED PT WHAT HE NEEDS, HE SAID HE NEEDS TO PEE. PT PROVIDED URINAL VOIDED 150ML CLEAR YELLOW URINE, THEN PT SAID HE NEEDED TO POOP, PROVIDED BEDSIDE COMMODE PT SAID HE DID NOT FEEL LIKE HE COULD WALK THAT FAR. PT REPORTS PAIN AT LEFT HIP, HE HAS JUST BEEN ADMINISTERED TRAMADOL PER SCHEDULED PAIN REGIMEN.
--- NOTE | 2021-10-14 15:08 | NUR ---
Called and was able to speak with [facility].She states they have been flooded with referrals. They are currently reviewing charts at this time. Will let me know tomorrow if pt has been accepted.
--- NOTE | 2021-10-14 15:09 | NUR ---
Received a call from Annetta at [facility]. She states she sent pts orders for a walker to [facility] as pt lives in [place]. Updated I highly doubt pt will return home and this is why I asked for the walker to be delivered to the hospital. She states she will send it through and hopefully deliver tomorrow.
--- NOTE | 2021-10-14 15:40 | NUR ---
bedside report from adi rn, pt resp rate reg, eyes closed. call light in reach -
--- NOTE | 2021-10-14 16:43 | NUR ---
checked with collector of internal revenue about pt sleeping currently - and po protonix for 16 - ok to give with 1730 meds at dinner.
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
--- NOTE | 2021-10-14 18:06 | NUR ---
pt cont. to be in bathroom with hot metal charger and Dr. Simental attempting to get him to cooperated to return to bed, or chair - security here.
--- NOTE | 2021-10-14 18:56 | NUR ---
pt in line of site of rn at nurses . he is awake, eyes open looking around and grabing at pulse ox. closes eyes again and rests. resp. even unlabored.
--- NOTE | 2021-10-14 19:30 | NUR ---
PT RESTING IN CHAIR WITH EYS CLOSED, WAKENS WITH VOICE. NO NEEDS.CHAIR ALARM ON. CALL LIGHT IN REACH.
--- NOTE | 2021-10-14 20:21 | NUR ---
PT VSS AND I AND O'S. PT SOMNELENT. PT RESPONDING TO NOXIOUS STIMULUS. PT UP IN CHIAR WITH CHAIR DAVID ON. CALL LIGHT IN REACH.
--- NOTE | 2021-10-14 22:22 | NUR ---
MEDS HELD AT THIS ITWA. PT CAROL RODRIGUEZ, LAURITA 99-100 ON RA. PT IN CHAIR CHAIR ALVAREZ SHOP DIRECTOR [facility].
--- NOTE | 2021-10-14 22:57 | NUR ---
APPROX 2144 PT WAS LEANING FORWARD, CHAIR ALARM SOUNDING. ASK PT IF HE NEEDS TO HELP, HE SAID HE NEEDED BATHROOM. WAS PATIENT WHILE SURVEILLANCE TECHNICIAN AND THIS RN IN ROOM PREPARING CHAIR ETC, WAS INCONT STANDING AT THE CHAIR, PASSED GAS, REMARKING, I GUESS I NEED TO DO MORE THAN PEE. 2 STAFF ASSISTED HIM, HE USED FWW WITH CUEING, BUT STAFF UNSURE SO USED 2. CUED TO SIT ON TOILET, WITHIN SIGHT AT ALL TIMES, PT HAS SOFT LG STOOL, UNABLE TO DETERMINE IF HE VOIDED, BUT DID HAVE LARGE AMOUNT URINE ON FLOOR BY CHAIR. ABLE TO LOOK AT INCISION, LEFT HIP, FELIPA DRY, INTACT, NO SIGN OF INFECTION, OR OPEN AREAS. REDRESSED HIP WITH ACTICOAT X 2. WHEN ASKED IF HE HURTS, HE SAYS WELL NOT NOW. HE WASN'T AWARE OF HIS SURROUNDING, PLEASANT AND COOPERATIVE AT THIS TIME. SUGGESTED HE MIGHT LAY DOWN HE SEEMED TIRED, HE THOUGHT THAT WAS A GOOD IDEA. CUED TO SIT ON BED, NO COMPLAINT OF PAIN, HOWEVER, FACIAL EXPRESSION SEEMED SL PAIN BUT DENIES IT WHEN ASKED. THIS RN PUT PT LEGS INTO BED, SURVEILLANCE TECHNICIAN AND RN ADJUSTED PT IN BED. WARM BLANKET PROVIDED, PT PRIMARY RN LASHAY IN ROOM.
--- NOTE | 2021-10-14 23:41 | NUR ---
PT ATTMEPTING TO CLIMB PUT OF BED. PT ASSISTED TO THE RESTROOM, PT ASSISTED BACK TO BED. NO OTHER NEEDS BED ALARM ON, CALL LIGHT IN REACH.
--- NOTE | 2021-10-15 00:53 | NUR ---
PT SLEEPING IN BED WITH EYS SHUT, MOUTH OPEN AND SHAKING HIS HEAD. EVEN RESPIRATIONS NOTED. BED ALARM ON, CALL LIGHT IN REACH.
--- NOTE | 2021-10-15 02:27 | NUR ---
PT ATTEMPTING TO CLIMB OUT OF BED, PT ASSITED TO BATHROOMWITH MOE HODGE. PT PIN [id number]. SCHEDULED PAIN MEDICATION GIVEN PER ORDER. PT ASSISTED BACK TO BED. NO OTHER NEED, BED ALARM ON, CALL LIGHT IN REACH.
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
--- NOTE | 2021-10-15 04:47 | NUR ---
REG DIET, RA, PT ORDERED, 1PA WITH WALKER, PT SOMLENT THRUOUGHOUT SHIFT. PT WITH AGGRESSIVE BEHAVIOR. UP TO RESTROOM PRN. BED ALRM. SL.
--- NOTE | 2021-10-15 05:08 | NUR ---
PT ASSITED TO RESTROOM, PT BACK IN BED. PT PLEASANT AND COOPERATIVE WITH STAFF AND CARES. PAIN 3/10 TO LEFT HIP. DRESSING C/D/I. I AND O'S AND VS COMPLETED. BED ALARM ON. NO TOHER NEEDS. CALL LIGHT IN REACH.
--- NOTE | 2021-10-15 07:15 | NUR ---
report from Jorge mcbride's - pt currently in bed, eyes closed, resp rate even, bed alarm on.
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
--- NOTE | 2021-10-15 12:50 | EKG ---
[facility] [address] [facility] [place], [place] [address] Signed Atrial fibrillation Nonspecific ST and T wave abnormality Abnormal ECG When compared with ECG of 15-SEP-2021 21:29, Criteria for Inferior infarct are no longer present Confirmed by BOY MCKEON DO ([id number]) on 10/15/2021 12:50:29 PM Electronically Signed By: BOY MCKEON DO 10/15/21 1250 PATIENT NAME: HANHMARK Flores Electrocardiogram DATE OF : 52 PHYSICIAN: BOY MCKEON DO REPORT #: [id number] REPORT IS CONFIDENTIAL AND NOT TO BE RELEASED WITHOUT AUTHORIZATION
--- NOTE | 2021-10-15 13:30 | NUR ---
RN IN WITH PT, AWAKE AND ALERT HAD REGULAR DIET LUNCH 90 % - GIVEN PUDDING WITH AFTERNOON PILL. HE IS PLEASANT AT THIS TIME AND AGREEABLE TO TAKE MEDS.
--- NOTE | 2021-10-15 15:01 | NUR ---
RN SITTING IN ROOM WITH PT, HE IS SITTING IN ALERT - FIDGITING WITH HIS BELOINGINGS, WIGGLING IN CH CAUSEING ALARM TO GO OFF - RN REPOSITIONED PT TO MORE RECLINING POSITION OF COMFORT PT STATES "FEELS GOOD".
--- NOTE | 2021-10-15 16:36 | NUR ---
PT SET OFF CH ALARM, THIS NURSE STANDBY ASSIST WITH MAX CUE AMB PT WITH FWW TO BATHROOM. + FLATUS. PT DENIES NEEDS, BACK TO FOR MEAL AND PO MEDS.
--- NOTE | 2021-10-15 16:44 | NUR ---
LARGE INC URINE - REFILLED H20 = LEMONADE CRYSTAL LIGHT DRINK. PT TOOK PO PILLS WELL. BACK TO WITH 2 ALRARMS ON AND CALL LIGHT IN REACH
--- NOTE | 2021-10-15 17:14 | NUR ---
PT UP IN WITH ALARM ON, DENIES DINNER - WANTS TO GIVE IT AWAY - "YOU EAT IT" RN PLACED IT TO SIDE TO SAVE FOR HIM, WILL TRY AGAIN.
--- NOTE | 2021-10-15 19:05 | NUR ---
RECEIVED REPORT, PT IS RESTING WITH EYES CLOSED IN THE CHAIR. RR IS EVEN AND UNLABORED. CALL LIGHT IS CLOSE AND CHAIR ALARM IS ON.
--- NOTE | 2021-10-15 20:09 | NUR ---
CHAIR ALARM SOUNDED, PT UP TO USED RESTROOM 1PA FWW. PT NEEDS ALOT OF DIRECTION, HE IS COOPERATIVE AT THIS TIME. GRIMACES WITH MOVEMENT, ADMINISTERED EVENING MEDICATIONS AND OXYDOCONE. PT HAD MULTIPLE BMS TODAY, HELP BOWEL MEDS. DRESSING ON L HIP IS CDI. PT IS NOW RESTING IN CHAIR WITH ALARM ON AND CALL LIGHT CLOSE.
--- NOTE | 2021-10-15 23:15 | NUR ---
PT IS GETTING OOB, NEEDS TO USE THE TOILET, INCONT OF URINE, BM AT THE TOILET, PT ASSISTED 1PA/SBA FWW TO TOILET, PT BACK TO BED, ALARM IS SET, NO FURTHER NEEDS
--- NOTE | 2021-10-15 23:52 | NUR ---
PT IS RESTING WITH EYES CLOSED, RR IS EVEN AND UNLABORED. CALL LIGHT IS CLOSE AND BED ALARM IS ON.
--- NOTE | 2021-10-16 01:12 | NUR ---
IN ROOM TO ADMINISTER SCHEDULED ULTRAM. PT WAS JUST UP TO USE THE RESTROOM WITH HELP OF ANAT MORENO. HE IS NOW BACK IN BED AND DENIES FURTHER NEEDS, CALL LIGHT IS CLOSE AND BED ALARM IS ON.
--- NOTE | 2021-10-16 03:04 | NUR ---
PT IS RESTING WITH EYES CLOSED, RR IS EVEN AND UNLABORED. CALL LIGHT IS CLOSE AND BED ALARM IS ON.
--- NOTE | 2021-10-16 05:00 | NUR ---
BED ALARM SOUNDED. 1PA FWW TO RESTROOM THEN TO CHAIR. INCONTINENT OF URINE IN ATTENDS AND PT VOIDED IN TOILET. VS TAKEN AND ENTERED AND ULTRAM ADMINISTERED. PT DENIES FURTHER NEEDS AT THIS TIME. CHAIR ALARM IS ON AND CALL LIGHT IS CLOSE.
--- NOTE | 2021-10-16 06:10 | NUR ---
CHAIR ALARM SOUNDING. PT PLEASANT COOPERATIVE, THINKING HE WANTED TO LAY ON THE COUCH, SUGGESTED BATHROOM, SBA, AMBULATE BATHROOM, CUEING WITH WALKER. VOIDED, SUGGESTED THE SOFT BED, HE AGREED. LIFTED BOTH LEGS INTO BED FOR HIM, COVERED WITH WARM BLANKET, DRINK WATER PROVIDED. BED ALARM PLACED.
--- NOTE | 2021-10-16 07:05 | NUR ---
bedside report from nurse - pt eyes closed, call light in reach and alarm on.
--- NOTE | 2021-10-16 09:52 | NUR ---
RN IN ROOM FOR ASSESSMENT AND MEDS - PT UP IN FOR MEAL AND MEDS, WATCHING TV - TAKING ORAL INTAKE WELL. PT PLEASANT TODAY SO FAR.
--- NOTE | 2021-10-16 11:29 | NUR ---
PT ALERT, SITTING IN CHAIR SMILING AND SEEMS TO BE ENJOYING THE SUNSHINE COMING INTO HIS RM. VISITED A MOMENT, GAVE BLESSING. WILL FOLLOW
--- NOTE | 2021-10-16 13:26 | NUR ---
RN ASSISTED PT TO AMB TO BR TO SIT ON TOILET - INC OF URINE IN BRIEF - CLEANED AND CHANGED. AMB PT BACK TO W FWW AND FACED TO WATCH OUT WINDOW WITH CALL LIGHT IN REACH - WATER ENC. SLITTER AND REWINDER MACHINE OPERATOR UPDATED - SKIN WNL. PT DENIES NEEDS
--- NOTE | 2021-10-16 17:03 | NUR ---
PT UP IN FOR MEAL - STARTED TO THORW ORAL PILLS - RN PLACED IN PUDDING AND PT FED HIMSELF - PT THEN EATING DINNER ALARM AND CALL LIGHT IN REACH
--- NOTE | 2021-10-16 19:01 | NUR ---
SHIFT REPORT RECEIVED FROM FROM SASHA ROSA. PT RESTING IN BED, WATCHING TV. NO NEEDS AT THIS TIME. CALL LIGHT IN REACH, BED ALARM ON.
--- NOTE | 2021-10-16 20:30 | NUR ---
ASSESSMENT COMPLETED. PT ORIENTED TO PERSON ONLY. PT WORDS ARE INAPPROPRIATE BUT WILL OCCASSIONALY ANSWER A QUESTION CORRECTLY. PT REFUSES TO USE SCDs. IV WNL. LUNGS CLEAR, BOWEL TONES PRESENT. SCATTERED BRUISING NOTED. LEFT HIP DRESSING CDI, GENERALIZED EDEMA. TRACE BLE EDEMA. CMS INTACT. HEART TONES IRREGULAR, HX OF AFIB. BED ALARM ON. NO OTHER NEEDS. CALL LIGHT IN REACH.
--- NOTE | 2021-10-16 21:00 | NUR ---
PT UP TO BATHROOM, VOIDED, BACK TO BED, STREADY GAIT.
--- NOTE | 2021-10-17 | NUR ---
PT RESTING IN BED. BED ALARM ON. RR EVEN, UNLABORED. CALL LIGHT IN REACH.
--- NOTE | 2021-10-17 02:00 | NUR ---
SCHEDULED MED PROVIDED. PT UP TO BR AND BACK TO BED, FWW. NO OTHER NEEDS. CALL LIGHT IN REACH, BED ALARMS ON, RAILS UP.
--- NOTE | 2021-10-17 03:55 | NUR ---
PT RESTING IN BED. RR EVEN, UNLABORED. RAILS UP, BED ALARM ON, CALL LIGHT IN REACH.
--- NOTE | 2021-10-17 05:42 | NUR ---
PT APPEARS MORE ANXIOUS, GRIMACE, TENSE. SCHEDULED PAIN MED PROVIDED. NO OTHE NEEDS. UP IN CHAIR, CHAIR ALARM ON.
--- NOTE | 2021-10-17 06:44 | NUR ---
SCHEDULED MED PROVIDED. PT UP IN CHAIR. PT TALKING TO PEOPLE NOT IN ROOM. CHAIR ALARM ON. CALL LIGHT IN REACH.
--- NOTE | 2021-10-17 07:24 | NUR ---
this rn received report from julia mcbride. this rn to assume care
--- NOTE | 2021-10-17 10:15 | NUR ---
THIS RN IN PTS ROOM TO GIVE PT HIS MORNING MEDS. PT SITTING UP TO CHAIR AND PLEASANTLY CONFUSED THIS AM. PT ORIENTED TO SELF. THIS RN ASSISTED PT FROM CHAIR TO RESTROOM FOR PT TO VOID AND THEN BACK TO BED. BED ALRAM SET AT THIS TIME. PT TOOL MEDS WITH NO PROBLEMS
--- NOTE | 2021-10-17 12:20 | NUR ---
PT IN BED ATTEMPTING TO GET OUT - THIS RN ASSISTED HIM TO AMB TO BR - INC OF URINE AND HAD SM BM. POOR USE OF FWW, AMB BACK TO WITH ALARM X2 -
--- NOTE | 2021-10-17 14:21 | NUR ---
THIS RN IN PTS ROOM TO GIVE PT HIS AFTERNOON MEDS. PT SITTING UP IN CHAIR TALKING ABOUT NEEDING TO DEVELOP HIS FILM PHOTOGRAPHY. CHAIR ALRAM ON.
--- NOTE | 2021-10-17 17:15 | NUR ---
THIS RN IN PTS ROOM TO GIVE SCHEDULED MEDS. PT TOOK MEDS. PT BACK IN BED READY FOR DINNER. BED ALRAM ON
--- NOTE | 2021-10-17 19:00 | NUR ---
SHIFT REPORT RECIEVED FROM MATT ROSA. PT RESTING IN BED, WATCHING TV. NO NEEDS AT THIS TIME. RAILS UP, BED ALARM ON, CALL LIGHT IN REACH.
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
--- NOTE | 2021-10-17 21:00 | NUR ---
ASSESSMENT COMPLETED. PT MORE CALM AT THIS TIME. NEW IV STARTED IN RA BY DENVER ROSA. VS AND I&O COMPLETED. PT ONLY ORIENTED TO SELF. LUNGS CLEAR, HEART TONES IRREGULAR. ABD SOFT, BOWEL TONES ACTIVE. CMS INTACT. LEFT HIP DRESSING DRY AND INTACT WITH SCANT SHADOWING. SCATTERED BRUISING NOTED. 1+ BLE EDEMA. GENERALIZED EDEMA IN LEFT HIP. ICE WATER PROVIDED.
--- NOTE | 2021-10-18 00:17 | NUR ---
PT SITTING IN BED, PLAYING WITH COLOR CRAYONS. RAILS UP, BED ALARM ON, CALL LIGHT IN REACH.
--- NOTE | 2021-10-18 02:10 | NUR ---
SCHEDULED MED PROVIDED. PT IS CALM, TALKING TO PEOPLE NOT IN THE ROOM. PT HAS NOT SLEPT YET THIS SHIFT. ICE WATER PROVIDED. NO OTHER NEEDS. CALL LIGHT IN REACH.
--- NOTE | 2021-10-18 04:35 | NUR ---
PT WAS ASLEEP FOR ABOUT AN HOUR BEFORE HE IS HEARD YELLING IN HIS ROOM. PT UP TO BR, FWW, BACK TO BED. VS AND I&O COMPLETED. PT HAS PULLED HIS IV, CATHETER WNL. BLOOD FOUND ON GOWN, CHANGED. SUPERIOR SKIN ON LEFT HIP DRESSING HAS A TEAR. PT IS RUBBING ALL OVER HIS BODY, PULLING AT CLOTHING, BRIEFS. PT DENIES PAIN. UNABLE TO ADDRESS NEW SKIN TEAR OR NEW IV AT THIS TIME. PT IN BED, FRESH BEDDING PROVIDED. RAILS UP, BED ALARM ON, CALL LIGHT IN REACH.
--- NOTE | 2021-10-18 06:15 | NUR ---
SCHEDULED MED PROVIDED. FACES PAIN SCALE 4/10. PT IS RESTLESS, TOOK OFF GOWN, RUBBING HIMSELF ALL OVER, TALKING TO PEOPLE NOT IN THE ROOM. PT IS IN BED, RAILS UP, BED ALARM ON.
--- NOTE | 2021-10-18 06:59 | NUR ---
NOTIFIED OF PT PULLING OUT IV X2. THIS RN WILL PASS ON TO DAY SHIFT RN THAT WHEN PT IS MORE CALM TO ATTEMPT ANOTHER IV.
--- NOTE | 2021-10-18 09:00 | NUR ---
THIS RN IN PTS ROOM TO GIVE MORNING MEDS. PT UP TO CHAIR AT THIS TIME. PT TOOK PILLS WELL. CHAIR ALARM ON AT THIS TIME.
--- NOTE | 2021-10-18 10:00 | NUR ---
PT APPEARS TO BE RESTING COMFORTABLY AT THIS TIME. RESPIRATIONS NOTED. THIS RN DISCUSSED WITH MD ABOUT IV SITUATION. MD STATED TO LEAVE OUT IV FOR NOW.
--- NOTE | 2021-10-18 14:38 | NUR ---
PT SCOOTCHING OUT OF CHAIR AND SETTING OFF ALARM. PT STATES THAT HE IS LOOKING FOR HIS . THIS RN REDIRECTED PT TO GO FOR A WALK IN THE HALLS. PT PROGRESSED FROM TALKING ABOUT HIS "WHORING AROUND" TO TALKING ABOUT WHAT KIND OF FISH HE WOULD CATCH. PT BACK TO CHAIR. PT IS RESTLESS THIS AFTERNOON
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
--- NOTE | 2021-10-18 18:00 | NUR ---
THIS RN IN PTS ROOM TO GIVE EVENING MEDS. PT MORE PLEASEANT AT THIS TIME. PT UP TO RESTROOM AND THEN UP TO CHAIR TO VOID. PT APPEARS TO BE A BIT SORE IN HIS LEFT HIP AFTER THE 3 FULL LAPS AROUND THE UNIT HE DID THIS AFTERNOON. PT STATES THAT HE IS SORE BUT DOES NOT DIRECTLY COMPLAIN OF PAIN. PT TO EAT DINNER AND HAS CHAIR ALARM ON
--- NOTE | 2021-10-18 19:30 | NUR ---
PT UP AMBULATING HALLS WITH PHP WEB DEVELOPER. NO NEEDS AT THIS TIME.
--- NOTE | 2021-10-18 20:00 | NUR ---
THIS BOAT RIGGER ACCOMPANIED PATIENT AMBULATE THE HALLWAY X4. PATIENT IS IN BED. BED ALARM ON. APPLE JUICE GIVEN. PRIMARY RN LASHAY WAS WITH PATIENT.
--- NOTE | 2021-10-18 20:45 | NUR ---
SCHEDULED MEDICATIONS GIVEN. PT IN BED WATCHING TV AND RESTING WITH EYES CLOSED INTERMITTENTLY. PRN NORCO GIVEN PER ORDER. PAIN 2/10 LEFT HIP. I AND O'S COMPLETED. VS COMPLETED. NO OTHER NEEDS. BED ALARM ON. CALL LIGHT IN REACH.
--- NOTE | 2021-10-18 23:46 | NUR ---
PT BED ALARM SOUNDING. IN TO SEE PT. PT ASSISTED TO THE RESTROOM TO VOID. PT ASSSITED TO THE CHAIR. NEW SOCKS PLACED. ASSOCIATE PTHER NEEDS. CHAIR ALARM ON. FRESH WATER PROVIDED. CALL LIGHT IN REACH.
--- NOTE | 2021-10-19 02:23 | NUR ---
IN TO SEE PT. I AND O'S AND VSS COMPLETED. C/O PAIN 3/10 TO LEFT HIP, PT EMOTIONAL AND CRYING. PT REASSURED. SCHEDULED TRAMADOL GIVEN PER ORDER. NO OTHER NEEDS. BED AALARM ON. CALL IGHT IN REACH.
--- NOTE | 2021-10-19 04:19 | NUR ---
PT LAYING IN BED AT THIS TIME WITH EYES OPEN WATHCING TV. NO OTHER NEEDS AT THIS TIME. BED ALARM ON. CALL LIGHT IN REACH.
--- NOTE | 2021-10-19 05:36 | NUR ---
WSCHEDULED MEDICATIONS GIVEN. PAIN 2/10 TO LEFT HIP. PT UP IN CHAIR. CH ALARM ON. NO OTHER NEEDS, CALL LIGHT IN REACH.
--- NOTE | 2021-10-19 06:16 | NUR ---
REG DIET, RA, 1PA W WALKER. WORKING WITH PT. ORIENTED TO SELF. NO IV ACCESS. BED/CH ALARM. PRN PAIN MGMT X 1.
--- NOTE | 2021-10-19 07:46 | NUR ---
this rn received report from carter mcbride. pt appears to be resting in the chair at this time with chair alarm on and non skid socks in place
--- NOTE | 2021-10-19 08:30 | NUR ---
THIS RN IN PTS ROOM TO GIVE PT MORNING MEDS. PT UP TO CHAIR AT THIS TIME, WITH ALRM IN PLAE. PT COMPLIANT WITH CARE AND WILLING TO HAVE VITALS TAKEN AND TAKES MEDS WELL. ALARM IN PLACE AND CALL LIGHT WITHIN REACH.
--- NOTE | 2021-10-19 09:38 | NUR ---
PT AWAKE IN CHAIR WITH CHAIR ALARM ON. PT IS PLEASANTLY CONVERSATIONAL AND LIKES WATCHING ANIMAL PLANET. CALL LIGHT WITHIN REACH. FRESH ICE WATER GIVEN. NO FURTHER NEEDS AT THIS TIME
--- NOTE | 2021-10-19 09:55 | NUR ---
THIS RN IN PTS ROOM TO GIVE SCHEDULED PAIN MEDS. PT COMPLIANT WITH CARE ROSA ZENDEJAS IN CHAIR WITH CHAIR ALARM STILL IN PLACE. PT REPORTS NEEDING NOTHING AT THIS TIME. CALL LIGHT STILL WITHIN REACH
--- NOTE | 2021-10-19 09:56 | NUR ---
PER [facility] AT [facility] THEY ARE CURRENTLY UNDER EXECYTIVE ORDER DUE TO COVID 19 CASES AND HOPE TO BE ABLE TO ADMIT PATIENT NEXT WEEK. WILL CONTINUE TO FOLLOW UP FOR PATIENT PLACEMENT.
--- NOTE | 2021-10-19 10:58 | NUR ---
PT APPEARS TO BE RESTING COMFORTABLY AT THIS TIME IN THE CHAIR WITH CHAIR ALARM ON AND NONSKID SOCKS IN PLACE
--- NOTE | 2021-10-19 11:03 | NUR ---
PT UP WORKING WITH [employer] IN [place]. PT BEING APPROPRIATE AT THIS TIME.
--- NOTE | 2021-10-19 11:29 | NUR ---
OVER TO FLOOR TO CHECK ON PATIENT. PATIENT SLEEPING IN CHAIR FACING THE RN STATION. WILL RETURN TO CHECK ON PATIENT AT LATER TIME.
--- NOTE | 2021-10-19 11:50 | NUR ---
PT STOOD UP SETTING OFF CHAIR ALARM, THIS RN INTO ROOM, PT SAID HE NEEDED TO USE THE BATHROOM, PT STANDBY ASSIST TO BATHROOM WITH FWW. HE STOOD AND VOIDED 200 INTO HAT, HE ALSO VOIDED PAST INTO TOILET BOWEL, AND ALSO ON THE FLOOR, AND SOCKS, PT ASSISTED BACK TO BED, REMOVED SOCKS CLEANED FEET, PLACED NEW DRY SOCKS ON, PT PROVIDED FRESH ICE WATER. THIS RN LEAVING ROOM, PT STOOD AGAIN SETTING OFF CHAIR ALARM, WHEN ASKED WHAT HE NEEDED HE SAID "NOTHING, I WILL JUST SIT HERE" HE THEN SAT BACK DOWN.
--- NOTE | 2021-10-19 14:05 | NUR ---
PT RESTING IN CHAIR. FRESH ICE WATER GIVEN. CHAIR ALARM ON. CALL LIGHT WITHIN REACH
--- NOTE | 2021-10-19 14:20 | NUR ---
this rn in pts room to give pt his afternoon meds. pt sitting up in chair with chair alarm in place and nonskid socks in place.
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
--- NOTE | 2021-10-19 15:30 | NUR ---
this rn in pts room due to pt setting off chair alarm. this rn assisted pt to walk to 2 laps in the olivarez. pt tolerated well and behaviors thus far have been tolerable. pt back to chair with nonskid socks in place and chair alarm on
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
--- NOTE | 2021-10-19 18:51 | NUR ---
this rn arrived in room with pt getting ampted up. this rn attempted to assist pt to restroom to have him have a bm. pt not redirectable and yelling at every staff. orville mcbride able to give 5mg of haldol to assist pt be safe in room due to pts unsteady gait in room and unwilling to use walker. pt flinched slightly with im injection but tolerated well
--- NOTE | 2021-10-19 19:30 | NUR ---
PT UP WITH NURSING STAFF TO BULMARO THE BATHROOM. PT SITTING IN CHAIR AT THIS ITME. NO OTHR NEEDS, CALL LIGHT IN REACH.
--- NOTE | 2021-10-19 19:53 | NUR ---
SCHEDULED MEDICATIONS GIVEN . PRN TRAZADONE AND NORCO GIVEN FOR LEFT HIP PAIN. I AND O'S COMPLETED. VS COMPLETED. PT UP IN CHAIR. CHAIR ALRAM ON. NO OTHER NEEDS. CALL LIGHT IN REACH.
--- NOTE | 2021-10-19 23:12 | NUR ---
PT RESTING. RESPIRATIONS EQUAL NON-LABORED. WARM BLANKET PROVIDED. NO OTHER NEEDS. BED ALARM ON. CALL LIGHT IN REACH.
--- NOTE | 2021-10-20 00:14 | NUR ---
ASSISTED PT TO BATHROOM AND BACK TO BED. BED ALARM ON, NO OTHER NEEDS, CALL LIGHT IN REACH.
--- NOTE | 2021-10-20 03:20 | NUR ---
PATIENTS BED ALARM ALERTING STAFF. PATIENT ASSISTD TO THE RESTROOM. PATIENT INCONTINENT OF URINE. PATIENTS BEDDDING CHANGE. PATIENT ABLE TO VOID. PATIENT REPORTS PAIN. PRN PAIN MEDICATION GIVEN PER ORDER. PATIENT IS NOW IN BED RESTING. PATIENT DENIES ANY NEEDS. CALL LIGHT IN REACH. BED ALARM ON FOR SAFETY.
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
--- NOTE | 2021-10-20 07:25 | NUR ---
SHIFT REPORT FROM NURSE EISENBERG. PT IS IN BED WITH EYES CLOSED. NO APPARENT SIGNS OF DISTRESS. PT WITHIN VIEW OF NURSES STATION. BED ALARM ON FOR SAFETY.
--- NOTE | 2021-10-20 08:41 | NUR ---
PT IS AWAKE AND SITTING UP IN BED EATING BREAKFAST. THIS FLOOR NURSE PLANS TO GO ON A WALK AROUND THE NURSES STATION WITH THE PT AFTER BREAKFAST. CALL LIGHT WITHIN REACH. BED ALARM ON. WHITE BOARD UPDATED. CURTAINS OPENED. NO FURTHER NEEDS AT THIS TIME.
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
--- NOTE | 2021-10-20 10:45 | NUR ---
IN ROOM FOR SCHEDULED PAIN MEDS. PT DENIES PAIN BUT TAKES SCHEDULED MED. PT IS SITTING UP IN CHAIR WATCHING TV. DENIES NEEDS AT THIS TIME. CALL LIGHT WITHIN REACH, CHAIR ALARM ON FOR SAFETY.
--- NOTE | 2021-10-20 12:35 | NUR ---
PT SITTING IN CHAIR, SEEMS CONTENT FOR THE MOMENT. WAVED HELLO, WATCHING TV. NO C/O OT NEEDS AT THE MOMENT. WILL FOLOW NEEDED
--- NOTE | 2021-10-20 13:39 | NUR ---
PT AWAKE AND SOFTWARE SALES REPRESENTATIVE. CHATTING ABOUT HIS DOG MAX AND ALL THE CATS HE HAS. FRESH ICE WATER GIVEN. CHAIR ALARM ON. CALL LIGHT IN REACH. NO FURTHER NEEDS AT THIS TIME
--- NOTE | 2021-10-20 15:00 | NUR ---
PT SEEN UP IN ROOM; CHAIR ALARM DID NOT ALARM. PT REPORTS THAT HE IS "GOING HOME"; EASILY REDIRECTED WHEN REMINDED HE NEEDED TO STAY IN THE HOSPITAL LONGER. PT AGREES TO LAY DOWN IN BED AND TRY TO NAP. PT REFUSED HIS 1400 ULTRAM STATING "I DONT NEED IT". BED ALARM ON, REEDUCATED PT ON HOW TO USE CALL LIGHT. PT WITHIN VIEW OF NURSES STATION.
--- NOTE | 2021-10-20 15:10 | NUR ---
MADE SEVERAL CALLS TODAY TO [facility] AND SPOKE WITH MAYO WHO WAS ABLE TO GET AHOLD OF JENN AND HAVE HER CALL ME BACK. DISCUSSED WITH HER THAT WE NEED TO DISCHARGE PATIENT HE IS NOT MEDICALLY NECESSARY TO STAY ANY LONGER IN HOSPITAL. WE DISCUSSED THAT WE HAVE NOT BEEN ABLE TO FIND PLACEMENT DUE TO BEHAVIORS. DISCUSSED THAT HE MAY NEED TO DISCHARGE HOME WITH WHILE THEY WORK ON PLACEMENT OPTIONS. DISCUSSED SHE WOULD BE WELCOME TO COME SPEND SOME TIME WITH HIM NOW THAT HE IS MEDICATED. SHE MAY FIND HE IS MORE MANAGEABLE NOW. ALSO THAT WE STILL HAVE NO PAYER SOURCE. ASKED WHERE THEY ARE WITH THAT. SHE STATES SHE SENT FORMS TO TODAY SHE WAS OUT OF THE OFFICE PART OF LAST WEEK. DISCUSSED THAT HE HAS BEEN HERE FOR EXTENDED TIME LOOKING FOR PLACEMENT AND I THOUGHT THEY HAD ALL PAPERWORK ALREADY ENTERED FOR MEDICAID OR HER ABILITY TO GET POA. SHE STATES THEY ARE WORKING ON THIS. DISCUSSED WITH HER THAT THE HOSPITAL IS FULL, THAT COVID IS ON THE RISE AND WE REALLY NEED TO DISCHARGE ANYONE WHO DOES NOT NEED TO BE IN A ACUTE FACILITY. DISCUSSED THE RISK OF HIS BEING IN A HOSPITAL AND EXPOSED TO ILLNESSNES. SHE STATES UNDERSTANDING. DISCUSSED WITH HER THAT THEY NEED TO BE WORKING ON THIS 25/04 AT THIS POINT. DISCUSSED THAT I NEVER RECEIVED ANY LISTS FROM [facility] IN OUR ZOOM MEETING A COUPLE WEEKS AGO. SHE STATES SHE WILL CALL LINDA AND LOOK INTO THIS. AGAIN STRESSED THAT THEY ARE THE ONES WORKING WITH , THAT AT THIS POINT THEY REALLY NEED TO STEP UP WITH WHAT SHE IS GOING TO DO. I DISCUSSED I EXPECTED A CALL BACK TODAY ON THE PLAN. JENN LEFT A MESSAGE AN HOUR LATER STATING SHE HAS CALLED A [facility] IN [facility] AND THEY ARE GOING TO TAKE A LOOK AT PATIENT. I RETURNED HER CALL, SHE REQUESTS UPDATED CHART. I EMAILED TO HER FACESHEET/H&P/OP REPORT/PROG NOTES X 1WEEK/NURSES NOTES X 2 DAYS/PT NOTES X 5DAYS/MEDICATION LIST. THIS WAS SENT TO HER SECURE EMAIL. RECEIVED A CALL FROM NIKO AT [facility]. SHE IS REQUESTING FOR THEM TO COME ASSESS PATIENT ON TuesdayOctober AT 11AM. I ASKED IF THEY COULD POSSIBLY DO THIS SOONER, SHE DENIES ABILITY TO DO IT SOONER. DISCUSSED THEY WILL NEED TO CHECK IN A FRONT ENTRANCE AND WE WILL MAKE SURE THEY KNOW THAT TWO OF THEM NEED TO COME BACK TO ASSESS. [facility] [phone].
--- NOTE | 2021-10-20 16:11 | NUR ---
PT WITH INCREASING RESTLESSNESS/SUNDOWNERS. PT WITHIN VIEW OF NURSES STATION, HAS BEEN ON WALKS IN [place] WITH STAFF, GIVEN COLORING BOOKS, CARDS ETC FOR ENTERTAINMENT. ANAT QUINTERO WITH PT NOW. WILL CONTINUE TO MONITOR.
--- NOTE | 2021-10-20 17:26 | NUR ---
PATIENT TO BED FROM CHAIR, 1PA FWW. VITALS AND I&O'S CHARTED. CALL LIGHT IN REACH. BED ALARM ON. NO FURTHER NEEDS AT THIS TIME.
--- NOTE | 2021-10-20 17:52 | NUR ---
PT IS BEGINNING TO CALM AFTER SCHEDULED SEROQUEL AND DINNER. PT IS IN BED, BED ALARM ON FOR SAFETY. PT REMAINS IN VIEW OF NURSES STATION.
--- NOTE | 2021-10-20 18:45 | NUR ---
PT SET OFF BED ALARM APPROX 1/2HR AGO. PT TO TOILET BUT HAD ALREADY URINATED IN PANTS. FRESH BRIEFS, PAJAMA BOTTOMS AND SOCKS PUT ON PT. WHEN THIS NURSE HAD GONE FOR PJ BOTTOMS, PT WAS FOUND URINATING INTO GARBAGE CAN WITH URINE ON FLOOR. FOLLOWING FRESH CLOTHES AND BRIEF, THIS RN WALKED HALLWAY LOOP WITH PT; SBA FWW. PT RETURNED TO BED, CALM AND RELAXING, WATCHING TV. BED ALARM ON FOR SAFETY.
--- NOTE | 2021-10-20 19:10 | NUR ---
RECEIVED REPORT FROM DAY SHIFT RN. PATIENT IS RESTING IN BED WATCHING TV. NO NEEDS NOTED. CALL LIGHT IN REACH. BED ALARM ON FOR SAFETY.
--- NOTE | 2021-10-20 19:49 | NUR ---
BED ALARM SOUNDING, PT TRYING TO GET OUT OF BED, AMBULATED TO BATHROOM WITH FWW, WITH CUEING. COOPERATIVE, PLEASANT. SAID " YOU KNOW WHAT IS DIFFERENT, I DONT' SEE ANY CATS IN THIS HOUSE". CONVERSATION ABOUT CATS, HIS PREFERENCE OF CATS, ETC. CUEING ONCE IN BATHROOM, BACK TO RECLINER CHAIR. TALKED TO HIM ABOUT GETTING [employer] FOR DINNER. SAID HE ALWAYS GOES TO [facility] FOR HIS CHICKEN. CHAIR ALARM PLACED, WATER AND SODA PLACED WITHIN REACH, BOOK GIVEN, WATCHING TV.
--- NOTE | 2021-10-20 20:23 | NUR ---
PATIENT ASSESMENT COMPLETED. PATIENTS VITALS TAKEN AND RECORDED. INTAKE AND OUTPUT RECORDED. PATIENT IS RESTING IN RECLINER. PATIENT HAS CHAIR ALARM ON. PATIENTS EVENING MEDICATIONS GIVEN PER ORDER. PATIENTS REPORTS PAIN STATING "I THINK I HURT MY HIP". PRN PAIN MEDICATION GIVEN PER ORDER. PATIENT PROVIDED WITH WARM BLANKET AND FRESH ICE WATER. NO FURTHER NEEDS NOTED.
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
--- NOTE | 2021-10-20 22:27 | NUR ---
@2212 PT UP WALKING TO HIS BED TO COVER UP THE "COLD GIRL", ON HIS BED, "DOESN'T SHE LOOK COLD". DENVER RN IN ROOM AMBULATED WITH PT TO BED, ENCOURAGED PT TO LAY ON BED, AND COVER WITH WARM BLANKET, HE READILY LAID DOWN, WARM BLANKET PROVIDED, BED ALARMS PLACED, S/R UP, LIGHTS OFF IN ROOM.
--- NOTE | 2021-10-20 23:05 | NUR ---
PATIENT IS RESTING IN BED WATCHING TV. NO NEEDS NOTED. CALL LIGHT IN REACH. BED ALARM ON FOR SAFETY.
--- NOTE | 2021-10-21 01:04 | NUR ---
WALKED X1 LAP AROUND MED/SURG FLOOR, PATIENT IS NOW IN RECLINER. CHAIR ALARM ON FOR SAFETY.
--- NOTE | 2021-10-21 01:22 | NUR ---
WALKED WITH PATIENT AROUND THE NURSE'S STATION X1. PRIMARY RN FAINA AND AUTOMOBILE ENGINE ASSEMBLERDEB MEZA WERE WITH PATIENT GOING IN TO THE ROOM.
--- NOTE | 2021-10-21 01:29 | NUR ---
PATIENT AMBULATED IN [place] X2 LAPS. PATIENT IT O BR AND WAS ABLE TO VOID. PATIENT IS NOW IN BED RESTING. PATIENT REPORTS PAIN IN HIS LEFT HIP. PATIENT GIVEN PRN PAIN MEDICATION PER ORDER. CALL LIGHT IN REACH. BED ALARM ON FOR SAFETY.
--- NOTE | 2021-10-21 02:17 | NUR ---
bed alarm sounding. pt getting out of bed, took pt to bathroom, said this conventional underwriter looked like my sister. Pt wanted to walk to the living room, able to redirect into recliner chair. He said he wasn't taking a nap. Chair alarm placed.
--- NOTE | 2021-10-21 02:49 | NUR ---
CHAIR ALARMING. PATIENT TRIED TO GET UP FROM CHAIR. SCRUB PANTS AND WARM BLANKET PROVIDED. PATIENT REMAINED UP IN THE CHAIR. ALARM ON FOR SAFETY.
--- NOTE | 2021-10-21 02:59 | NUR ---
CHAIR ALARMING. AUTOMOTIVE PARTS COUNTERPERSON MOE SILVERMAN WENT IN TO THE ROOM WITH PATIENT.
--- NOTE | 2021-10-21 04:11 | NUR ---
SUERVISOR LEFT ROOM. PATIENT IS UP TO RECLINER. PATIENTS CHAIR ALARM IS ON FOR PATIENT SAFETY. CALL LIGHT IN REACH.
--- NOTE | 2021-10-21 04:32 | NUR ---
PATIENT DID NOT SLEEP DURING THIS SHIFT. PATIENT IS ON A REGULAR DIET, TOLERATING WELL, AN NO NAUSEA NOTED. PATIENT HAS NO IV, PER MD. PATIENT IS A 1PA W/FWW AND IS WORKING WITH PT. PATIENT HAS DEMENTIA AT BASELINE AND IS ONLY OREINTED TO SELF. PATIENT HAS ALARMS ON FOR SAFETY. PATIENT DOES NOT FOLLOW DIRECTIONS AT TIMES. PATIENT HAS FELIPA PRESENT ON LEFT HIP FROM SURGERY, OPEN TO AIR, AND EDGES ARE WELL APPROXIMATED. PATIENT IS ON RA.
--- NOTE | 2021-10-21 05:12 | NUR ---
PATIENT IS AGITATED AND WANTS TO LEAVE. PATIENT IS NOW A 1 ON 1. PATIENT IS YELLING AT STAFF AND THREATENING TO "FUCK US UP". WILL REMAIN IN ROOM TO ATTEMPT TO REDIRECT PATIENT.
--- NOTE | 2021-10-21 05:40 | NUR ---
SABAS WOOL FLEECE GRADER TAKING PATIENT FOR WALK. PATIENT HAS CALMED A BIT. PATIENT IS FIXATED ON HIS AND HER AFFAIRS. SABAS WOOL FLEECE GRADER 1 ON 1 WITH PATIENT NOW.
--- NOTE | 2021-10-21 05:59 | NUR ---
PATIENT COMPLETED X1 LAP. PATIENT IS NOW BACK IN BED. PATIENT IS STILL UPSET AND TALKING TO HIMSELF ABOUT HIS . SABAS PRESENT OUTSIDE PATIENTS ROOM TO DECREASE STIMULI BUT PRESENT FOR PATIENT SAFETY. BED ALARM IS ON.
--- NOTE | 2021-10-21 06:10 | NUR ---
PLACED CALL TO MD. RECEIVED VERBAL ORDER. VERIFIED ORDER USING THE READBACK METHOD. PATIENT IS RESTING IN BED WITH ALARM ON.
--- NOTE | 2021-10-21 06:55 | NUR ---
PATIENTS SEROQUEL GIVEN EARLY PER MD ORDER. PATIENT REMAINS IN BED. BED ALARM ON FOR SAFETY.
--- NOTE | 2021-10-21 07:48 | NUR ---
SHIFT REPORT FROM NURSE EISENBERG. PT IS SLEEPING, BED ALARM ON. WITHIN VIEW OF NURSES STATION. NO APPARENT SIGNS OF DISTRESS.
--- NOTE | 2021-10-21 08:42 | NUR ---
PT AWAKE AND HAPPY. PT WAS SBA TO THE BATHROOM WITH VERBAL REMINDERS TO USE THE WALKER. PT NOW UP IN THE CHAIR WITH CHAIR ALARM ON. EATING BREAKFAST, AND CHATTING IN THE ROOM. CALL LIGHT WITHIN REACH. NO FURTHER NEEDS AT THIS TIME.
--- NOTE | 2021-10-21 09:53 | NUR ---
ADMINISTERED MORNING MEDS. PT HAS BEEN UP WALKINGIN [place] WITH PHYS THERAPY AND DENIES NEED FOR PAIN MEDICATION. STATES HE WILL SAVE IT FOR A BAD DAY.
--- NOTE | 2021-10-21 10:45 | NUR ---
Pt walking in olivarez with PT. Sitter in room as pt remains anxious. Discussed in [address] Morton. He request we determine if pt needs to have medication adjustments for admission to facility or medical release for home discharge. Will discuss with Corie Jimenez, Left message requesting a call back.
--- NOTE | 2021-10-21 11:17 | NUR ---
ROUNDS: PT IS SITTING UP IN CHAIR, CALM, WATCHING TV. ARTURO RN IS 1:1 SITTING WITH PT. WILL CONTINUE TO MONITOR.
--- NOTE | 2021-10-21 12:20 | NUR ---
IN ROOM FOR SCHEDULED MED ADMINS. PT IS UP TO TOILET WITH SBA FWW. PT IS GRIMACING WHEN WALKING HOWEVER REPORTS PAIN "WHAT I ALWAYS HAVE". PRN ULTRAM ADMINISTERED AT THIS TIME. PT RETURNS TO BEDSIDE. MOE MORRIS STILL 1:1 WITH PT.
--- NOTE | 2021-10-21 13:59 | NUR ---
PT INCREASINGLY AGITATED. 1-3 STAFF IN ROOM AT ALL TIMES. PT UNSURE WHAT HE WANTS, WHAT HE NEEDS, ETC. PT DENIES NEEDS TO VOID; PRN MEDS RECENTLY ADMINISTERED. SALES CLERK SUPERVISOR CALLED TO FLOOR TO SIT WITH PT 1:1. PT IN BED.
--- NOTE | 2021-10-21 14:28 | NUR ---
MULTIPLE STAFF IN WITH PT TRYING TO CARE FOR HIM. WILL CHECK BACK
--- NOTE | 2021-10-21 14:30 | NUR ---
PT IS YELLING OBSCENITIES AT PEOPLE THAT ARE NOT IN THE ROOM. SECURITY CHAD NEEDED 2ND PERSON TO GET PT ON THE BED. PT WILL NOT STAY ON BED, IS AGITATED, RESTLESS, FRUSTRATED. SPOKE WITH DR TALLEY RE: PRN MEDS. NEW ORDER RECIEVED. SEE EMAR.
--- NOTE | 2021-10-21 14:49 | NUR ---
PT SITTING IN CHAIR, SOMEWHAT CALMER. SECURITY ROB ROSA IN ROOM WITH PT.
--- NOTE | 2021-10-21 15:30 | NUR ---
Notified by staff, someone is visiting pt from medicaid. In and spoke with Heather Guaman from [facility]. She is here completing paperwork for family and pt. Plan at this time is for placement to an AL in [place]. Their golf manager plans on assessing pt. on Tuesday as they take pt with dx of dementia with needs.
--- NOTE | 2021-10-21 15:45 | NUR ---
pt CONTINUES TO BE RESTLESS, SITTING AT EDGE OF BED, GETTING UP FREQUENTLY. PT HAS CONE OPERATOR IN ROOM AND ARTURO ROSA.
--- NOTE | 2021-10-21 18:28 | NUR ---
pt continues to be 1:1 observation. relatively calm in chair at this time. network security analyst in room.
--- NOTE | 2021-10-21 19:05 | NUR ---
SHIFT REPORT RECEIVED FROM JANETTE ROSA. PT WALKING AROUND IN ROOM, SECURITY WITH PT.
--- NOTE | 2021-10-21 19:26 | NUR ---
EKG DONE AND PLACED IN CHART
--- NOTE | 2021-10-21 19:59 | NUR ---
pt IS 1:1 WITH SECURITY. pt INSISTING ON GETTING UP AND GOING TO "WORK" IN TO DO VITALS AND GAVE MEDS. pt IS COOPERATIVE WITH CARES. DENIES PAIN AT THIS TIME. REQUIRED REORIENTION TO SITUATION AND PLACE MULTIPLE TIMES. REMAINS 1:1 WITH SECURITY.
--- NOTE | 2021-10-21 20:35 | NUR ---
pt ATTEMPTING TO GET UP, SECURITY NOTIFIED THIS RN. pt REQUIRED CONSTANT PHYSICAL AND VERBAL CUES TO USE WALKER. 1PA TO TOILET, 300 ML OUT CONCENTRATED URINE. DEPENDS WET, CHANGED. pt ABLE TO DO OWN PERICARE WITH VERBAL CUES. pt ABLE TO BRUSH TEETH AND WASH HANDS. AMBULATED 1PA WITH FWW TO BED. WARM BLANKET PROVIDED. NO FURTHER REQUESTS AT THIS TIME. SECURITY REMAINS 1:1
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
--- NOTE | 2021-10-22 01:01 | NUR ---
PT AT CONTINIOUS MOVEMENT, TALKING TO PEOPLE NOT IN ROOM, AGGITATED, VERBALLY AGGRESSIVE WITH STAFF. PRN SEROQUEL PROVIDED. SECURITY AND SUSANA RN IN ROOM. PT REFUSING TO USE WALKER, GETS AGGRESSIVE WHEN STAFF TRY TO ASSIST. PT ASSISTED BACK TO BED.
--- NOTE | 2021-10-22 01:43 | NUR ---
pt YELLING "JACQUELINE GET IN HERE" ATTEMPTS TO PULL SELF OUT OF BED. pt VERY WEAK. APPEARS DROWSY. THIS RN IN ROOM. WARM BLANKET PROVIDED. pt LYING DOWN THEN BACK SITTING UP WITHIN ONE MINUTE. ANIMAL SURGEON IN ROOM FOR CLOSE MONITORING FOR SAFETY. BED ALARM PLACED.
--- NOTE | 2021-10-22 02:30 | NUR ---
PT AGGITATED, VERBALLY AGGRESSIVE. ATTEMPTING TO WALK WITH OUT WALKER. APPEARS VERY ANXIOUS. MD NOTIFIED BY PHONE. VERBAL ORDER GIVEN FOR HALDOL 2MG PO ONCE NOW. ORDER REPEATED BACK.
--- NOTE | 2021-10-22 04:00 | NUR ---
PT RESTING IN BED, EYES CLOSED. BED ALARM ON, RAILS UP, CALL LIGHT IN REACH.
--- NOTE | 2021-10-22 05:06 | NUR ---
pt CALLING OUT AND PULLING GOWN OVER HEAD. THIS RN TO BEDSIDE. REASSURED. PROVIDED WITH WARM BLANKET. BED ALARM ON.
--- NOTE | 2021-10-22 06:42 | NUR ---
PT RESTING IN BED, EYES CLOSED. RR EVEN, UNLABORED. CALL LIGHT IN REACH, RAILS UP, BED ALARM ON.
--- NOTE | 2021-10-22 07:08 | NUR ---
SCHEDULED MED PROVIDED. PRN PAIN MED PROVIDED FOR 3/10 LEFT HIP PAIN. CALL LIGHT IN REACH, RAILS UP, BED ALARM ON.
--- NOTE | 2021-10-22 07:28 | NUR ---
Received call from Corie Jimenez. She has been in contact with legal department. If pt is medically stable he may be discharge today. We need to speak with Dr. Morton and confirm medically ready for dc, contact the and request she pick the patient up, if she declines may send my transport, we need to notify other entities involved and request they assist the such as APS, [facility], family clergy. Will speak with Dr. Morton at 0830 meeting as he was working on medication adjustments. Pt may not be medically ready for dc today.
--- NOTE | 2021-10-22 08:40 | NUR ---
Spoke with Dr. Martinez and asked if ptis medically ready for dc. He states pt is and he discussed with last night. UPdated we will proceed with discharge of this pt.
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
--- NOTE | 2021-10-22 09:39 | NUR ---
Called APS and spoke with Pasquale Singh. Updated we are attempting to discharge pt to home. It is our understanding the is the POA for the and she declining to accept him home. Pasquale asks about charges and restraining order. Explained it is our understanding with discussion through [facility] staff there are no charges or a restraining order. It is also our understanding pt. does not qualify for medicaid as the family have have the ability to pay for caregivers or placement. I leaned this through a converstaion with Heather Guaman from [facility] yesterday when she was here completing paperwork with Valent[facility]. Expressed we plan to discharge this pt today. Pasquale states she will need to look into this case, as she has heard about it but does not know the details.
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
--- NOTE | 2021-10-22 11:00 | NUR ---
Pt's walker was delivered from [facility]. Spoke with Dr. Morton and he is now stating he would like to cont. to adjust pts medication and would prefer to not send pt home today. He is working with a psychiatrist for medication adjustment.
--- NOTE | 2021-10-22 11:27 | EKG ---
[facility] [address] [facility] [place], [place] [address] Signed Atrial fibrillation Abnormal ECG When compared with ECG of 15-OCT-2021 08:32, Questionable change in QRS axis Confirmed by JOHN TALLEY MD ([id number]) on 10/22/2021 11:27:22 AM Electronically Signed By: JOHN TALLEY MD 10/22/21 1127 PATIENT NAME: HANHMARK Flores Electrocardiogram DATE OF : 52 PHYSICIAN: JOHN TALLEY MD REPORT #: [id number] REPORT IS CONFIDENTIAL AND NOT TO BE RELEASED WITHOUT AUTHORIZATION
--- NOTE | 2021-10-22 12:37 | NUR ---
RECEIVED CALL FROM JENN HUYNH STATING SHE HAS A CALL INTO [facility] AND THEY ARE CALLING HER BACK AT 2PM TO LET HER KNOW IF THEY CAN DO ASSESSMENT EARLIER THAN TUESDAY. DISCUSSED WITH HER THAT DR TALLEY HAS DECIDED TO DO ANOTHER MED CHANGE SO HE WILL BE STAYING TONIGHT. SHE STATES SHE WILL CALL ME AFTER 2PM.
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
--- NOTE | 2021-10-22 16:32 | NUR ---
No return call today from pts .
--- NOTE | 2021-10-22 19:33 | NUR ---
SHIFT REPORT RECEIVED FROM CLAUDE ROSA. PT SITTING IN CHAIR. SITTER AT BEDSIDE. PT IS PLEASANT AND HOLDS A CONVERSATION. NO NEEDS AT THIS TIME. CALL LIGHT IN REACH.
--- NOTE | 2021-10-22 21:38 | NUR ---
IN TO GET VITALS, I&Os, PT IS PLESTANLY LAYING IN BED
--- NOTE | 2021-10-22 23:01 | NUR ---
BED ALARM SOUNDING. PT ASSISTED, FWW TO BR AND BACK TO BED. PT IS PLEASANT. NO OTHER NEEDS. CALL LIGHT IN REACH.
--- NOTE | 2021-10-22 23:50 | NUR ---
PT STILL AWAKE. PT MIMICKING STAFF AND MAKING NEGATIVE REMARKS. PRN AGGITATION MED PROVIDED. FRANK ROSA IN ROOM. CALL LIGHT IN REACH.
--- NOTE | 2021-10-23 | NUR ---
PT RESTING IN BED, EYES CLOSED. RR EVEN, UNLABORED. CALL LIGHT IN REACH, BED ALARM ON, RAILS UP.
--- NOTE | 2021-10-23 01:00 | NUR ---
bed alarming, pt sitting on edge of bed. redirected and reoriented to time. pt back in bed, bed alarm resumed and call light in reach.
--- NOTE | 2021-10-23 02:40 | NUR ---
PT'S CHAIR ALARM SOUNDED. ASSISTED PT TO GO BACK TO BED FROM CHAIR. HE DENIES FURTHER NEEDS. CALL LIGHT IS CLOSE AND BEDALARM IS ON.
--- NOTE | 2021-10-23 03:32 | NUR ---
BED ALARM SOUNDED, PT WAS TRYING TO GET OUT OF BED. REMINDED PT THAT IT IS ONLY 330AM. HE AGREED TO TRY TO SLEEP A LITTLE LONGER. WARM BLANKET PROVIDED AND PT DENIES FURTHER NEEDS. CALL LIGHT IS CLOSE, BED ALARM IS ON.
--- NOTE | 2021-10-23 05:20 | NUR ---
CHAIR ALARM SOUNDING. PT ASSISTED TO BED. WARM COCOA PROVIDED. NO OTHER NEEDS. CALL LIGHT IN REACH, BED RAILS UP. BED ALARM ON.
--- NOTE | 2021-10-23 06:48 | NUR ---
SCHEDULED MED PROVIDED. ICE WATER PROVIDED. NO OTHER NEEDS AT THIS TIME. CALL LIGHT IN REACH. BED ALARM ON, RAILS UP.
--- NOTE | 2021-10-23 07:45 | NUR ---
REPORT RECEIVED FROM NIGHT RN AND PT. CARE RESUMED. PT IS DROWSY AND AWAKENS EASILY TO SOUND. HE IS ORIENTED TO SELF. PLEASANT AND CALM. HE DENIES PAIN. LEFT HIP SURG. SITE IS DRY WITH FELIPA INTACT AND +2 EDEMA. PT. ABLE TO REPOSITION IN BED HIMSELF. ATTENDS DRY. PT. ASSISTED WITH SITTING UP FOR BREAKFAST. LEFT RESTING WITH ALARM ON AND DOOR OPEN.
--- NOTE | 2021-10-23 09:30 | NUR ---
Pt sitting in recliner. Ate breakfast. Denies pain. Denies need. No return call from DHS/APS or from pts .
--- NOTE | 2021-10-23 10:00 | NUR ---
PT WAS INCONTINENT. STOOD PT UP WITH FWW AND CHANGED BRIEF. PERICARE DONE. FRESH CHUK IN PLACE. PT NOW BACK IN BED. REPOSITIONING DONE. PILLOW UNDER CALVES AND R HIP. CALL LIGHT WITHIN REACH, NO FURTHER NEEDS AT THIS TIME
--- NOTE | 2021-10-23 11:20 | NUR ---
PT. IN THE BATHROOM AND ASSISTED WITH GOWN CHANGE AND CLEANING. AMBULATED WITH SBA AND FWW TO CHAIR. PLEASANT AND DENIES PAIN. ALARM ON AND CURTAIN OPEN.
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
--- NOTE | 2021-10-23 12:22 | NUR ---
PT. ASSISTED WITH SETTING UP FOR LUNCH AND CUTTING FOOD. PT. PLEASANT AND RELAXED. LEFT RESTING WITH CHAIR ALARM ON AND DOOR OPEN.
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
--- NOTE | 2021-10-23 14:00 | NUR ---
PT BEING COMBATIVE AND UNCOOPERATIVE WITH STAFF. SECURITY CALLED. NO AFTERNOON VS OR CARE DONE UNLESS PT IS AGREEABLE, PER RN'S.
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
--- NOTE | 2021-10-23 19:40 | NUR ---
PT CALL LIGHT ON, PT ASKING ABOUT , UP TO VOID AT TOILET, PT WALKING AROUND ROOM, PT REQUESTING TO GET IN BED, REDIRECTABLE TO HOSPITAL BED, PT TALKS ABOUT SEEING AND PLAYING CARDS WITH HIS FRIENDS TOMORROW, NO FURTHER NEEDS AT THIS TIME, BED ALARM ON
--- NOTE | 2021-10-23 20:00 | NUR ---
BED ALARM SOUNDED, PT SITTING AT THE EDGE OF THE BED TRYING TO GET UP. ASKED PT IF HE WOULD LIKE TO SIT IN THE CHAIR. HE IS STARTING TO GET UPSET SAYING "THAT WOULDN'T BE RIGHT TO TAKE THE CHAIR WITHOUT PAYING FOR IT" TRIED REDIRECTING PT. ANAT MORENO IN ROOM. MANISH FROM SECURITY WAS WALKING BY THIS RN TOLD HIM PT IS STARTING TO GET WORKED UP. THEY ARE BOTH IN ROOM WITH HIM AT THIS TIME WHILE PRIMARY RN YESICA GETS HIS EVENING MEDICATIONS.
--- NOTE | 2021-10-23 20:15 | NUR ---
PATIENT GETTING ANXIOUS AND AGGITATED AND GETTING OUT OF BED. PATIENT OFFERED THE CHAIR TO SIT IN BUT DECLINED. JOSH ALVAREZA HELPED PATIENT TO THE RESTROOM TO VOID 200MLS. PATIENT GIVEN HIS PM MEDS AND 2MG PO HALDOL. PM ASSESSMENT COMPLETE AND I+O ENTERED. MANISH FROM SECURITY IS HERE FOR A PRECAUTION GIVEN PATIENT'S RECENT BEHAVIORS. SECURITY AND FOOT CUTTER REMAIN IN ROOM TALKING WITH PATIENT AT THIS TIME.
--- NOTE | 2021-10-23 20:20 | NUR ---
BED ALARM SOUNDED, PT NEEDING TO GET UP 'GET HIS MONEY' 'GET MEDS' GO TO HIS TENT' PT OFFERED TO SIT IN THE CHAIR, PT REFUSING, PT WILLING TO GET HIS PM MEDS AND ACCEPTED THIS SPRING SETTER'S ATTEMP FOR PM VS, SECURITY JOINS THIS SPRING SETTER TO ASSIST PT WITH CARES AND GETTING INTO BED, PT REDIRCTED TO BED, PT BECOMING AGITATED WITH THIS SPRING SETTER'S PRESENCE, SECURITY ABLE TO REMAIN WITH PT AT THIS TIME, ATTEMPTING TO ASSIST PT SETTLE FOR THE NIGHT
--- NOTE | 2021-10-23 22:48 | NUR ---
PATIENT UP TO THE BATHROOM WITH ANDREW HART RN AND MANISH SECURITY AND BACK TO BED. MOE MORALES GAVE PATIENT ULTRAM FOR COMFORT. MANISH STIING IN ALEJO WATCHING PATIENT THROUGH THE DOOR.
--- NOTE | 2021-10-24 00:11 | NUR ---
MANISH PREFORMER IMPREGNATED FABRICS IN TALKING WITH PATIENT. PATIENT COOPERATIVE, BUT IS IMPULSIVE AND GETS OUT OF BED QUICKLY EVEN WITH BED ALARM ON. MANISH HERE FOR A PRECAUTION.
--- NOTE | 2021-10-24 02:27 | NUR ---
PATIENT GIVEN PO ULTRAM FOR 7/10 LEFT HIP PAIN, BY THIS RN. MANISH FROM SECURITY CONTINUES TO SIT OUT SIDE AND REMINDS PATIENT WHERE HE IS AND THE TIME OF NIGHT TO TRY AND HELP THE PATIENT GET SOME SLEEP. PATIENT HAS BEEN FAIRLY COOPERATIVE SO FAR THIS SHIFT. CALL LIGHT IN REACH AND BED ALARM IS ON.
--- NOTE | 2021-10-24 03:04 | NUR ---
pt up to toilet with security, this bisque brusher in to change drawsheet and chux, due to incont, urine on floor cleaned, bed alarm on, security near by to assist staff
--- NOTE | 2021-10-24 03:16 | NUR ---
PATIENT RESTING QUIETLY IN BED AT THIS TIME. RESPIRATIONS REGULAR AND EVEN, PATIENT YAWNING, NO CARE NEEDS AT THIS TIME. BED ALARM ON.
--- NOTE | 2021-10-24 05:24 | NUR ---
WENT IN TO GIVE PATINET'S AM MEDS AND PATIENT FINALLY SLEEPING SO AM MEDS HELD FOR THE TIME BEING. RESPIRATIONS ARE REGULAR AND EVEN, EYES ARE CLOSED, AND BED ALARM IS ON. PATIENT HAS NO CURRENT CARE NEEDS.
--- NOTE | 2021-10-24 06:00 | NUR ---
PATIENT WOKE UP AND USED HIS CALL LIGHT FOR THE FIRST TIME TONIGHT. PATIENT WANTING TO KNOW WHAT HIS WORK SCHDULE WAS GOING TO BE TODAY. REORIENTED PATIENT THAT HE WAS IN THE HOSPITAL AND PATIENT ALSO TOOK HI AM MED. ASSESSMENT REMIANS UNCAHNGED FROM START OF SHIFT. CALL LIGHT IN REACH AND BED ALARM ON. LIGHTS TURNED DOWN SO HOPEFULLY PATIENT WILL SLEEP A LITTLE MORE.
--- NOTE | 2021-10-24 06:17 | NUR ---
PATIENT'S BED ALARM WENT OFF AND THIS RN CAME IN THE ROOM AND MOE MORALES ALREADY ASSISTING PATIENT TO THE RESTROOM WITH FWW. PATIENT WAS INCONTINENT OF URINE IN BED, ON CHUX, AND IN ATTENDS. NEW ATTENDS IN PLACE, BED CLEANED UP AND NEW CHUX DOWN, URINE ON FLOOR WASHED UP. PATIENT HAS NO OTHER CARE NEEDS AT THIS TIME. PATIENT IS STILL TOTALLY DISORIENTED TO HIS SURROUNDINGS AND SITUATION HERE IN THE HOSPITAL. BED ALARM IS BACK ON AND PATIENT HAS NO OTHER NEEDS AT THIS TIME. PATIENT'S BREAKFAST HAS BEEN ORDERED.
--- NOTE | 2021-10-24 06:37 | NUR ---
PT YELLING OUT AND BECOMING AGITATED. PT GOT OUT OF BED AND SAID HE IS GOING TO WORK. ANDREW ROSA ENTERED ROOM WITH GWEN AND PT AGREED TO TAKE IT. THEY ARE NOW WALKING IN THE ALEJO.
--- NOTE | 2021-10-24 07:35 | NUR ---
Report from Taisha Yadav RN. Patient restless in room, pacing around room. Security in with patient.
--- NOTE | 2021-10-24 09:13 | NUR ---
Patient restless in room. Verbalizes multiple times he is concerned his "just left me. She's been telling me she's going to divorce me and now she's just gone." Pacing around room, has been ambulating in olivarez with staff this AM. Was agitated and yelling initially, no longer yelling at staff. Takes AM medications without difficulty. Does put hospital gown on with assist. Set up to eat breakfast. Security remains 1:1 with patient at this time.
--- NOTE | 2021-10-24 09:34 | NUR ---
PATIENT UP TO BATHROOM AND BACK TO BED, 1PA FWW. VITALS AND I&O'S CHARTED. CALL LIGHT IN REACH. NO FURHTER NEEDS AT THIS TIME.
--- NOTE | 2021-10-24 10:08 | NUR ---
Rounded on patient who is sitting on the couch folding blanket. He is calm and conversational with this RN. Security outside room at this time.
--- NOTE | 2021-10-24 10:13 | NUR ---
ALERT, RESTLESS, AMBULATING AROUND ROOM. NO SIGNS OF COMBATIVE BEHAVIOR. NO SIGNS OF AGITATION OR ANGER NOTED, TALKING TO STAFF CALMLY.
--- NOTE | 2021-10-24 11:42 | NUR ---
Sitting up in recliner, eating lunch. Continues with intermittent restlessness. No yelling or combativeness noted at this time.
--- NOTE | 2021-10-24 13:40 | NUR ---
Lying in bed on back, security in room with patient. No signs of pain or discomfort noted.
--- NOTE | 2021-10-24 14:17 | NUR ---
LYING IN BED, SECURITY IN ROOM WITH PATIENT. RESTING QUIETLY AT THIS TIME. ALLOWED TO REST, VITAL SIGNS HELD DUE TO PATIENT BEING CALM AT THIS TIME. ASSESSMENT COMPLETED. NO CHANGE FROM THIS AM.
--- NOTE | 2021-10-24 15:29 | NUR ---
Becoming agitated and combative with security. Wants to speak with . Becomes agitated when asking about her. Informed him his is not present and has not been in today. PRN medications administered. Takes without difficulty. Instructed to try to relax and rest due to lack of sleep. States he will try to relax. Security, Jovanny, remains at bedside with patient.
--- NOTE | 2021-10-24 18:05 | NUR ---
Continues with restlessness at this time. Did ambulate in hallway with staff.
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
--- NOTE | 2021-10-24 20:15 | NUR ---
PATIENT GIVEN 5MG PO HALDOL AND HIS OTHER EVENING MEDS WHICH PATIENT TOOK WITHOUT INCIDENT. PATIENT RESTING IN BED WATCHING A FOOTBALL GAME WITH SECURITY AT BEDSIDE. PATIENT CONTINUES TO YELL OUTLOUD PERIODICALLY. BED ALARM IS ON.
--- NOTE | 2021-10-24 23:16 | NUR ---
SECURITY GOT CALLED TO THE ER SO THIS RN HAS BEEN IN THE ROOM WITH THE PATIENT. PATIENT WANTED TO GET UP AND WALK, SO I WALKED IN THE ROOM WITH THE PATIENT. PATIENT WENT INTO THE RESTROOM AND STARTED FLUSHING THE TOILET REPEATEDLY AND I ASKED THE PATIENT TO STOP, BUT HE WOULD NOT AND TOLD ME,"MIND YOUR BUSINESS. I PUT MY HAND ON THE FLUSH HANDLE AND PATIENT GOT A HOLD OF THE TOILET BRUSH AND TRIED TO HIT THIS RN WITH IT. THIS RN GOT A HOLD OF PATIENT'S HANDS AND I CALLED FOR AASISTANCE. PATIENT DROPPED THE TOILET BRUSH AND TRIED TO KICK ME. MOE BRYANT PULLED THE BEDSIDE RECLINER AROUND BE HIND THE PATIENT, MOE SANCHEZ AND ANAT MORENO ALSO IN THE ROOM. THIS RN HELD PATIENT'S HANDS AND HELPED HIM SIT DOWN IN THE RECLINER AND MANISH FROM IS BACK IN THE ROOM WATCHING THE PATIENT NOW.
--- NOTE | 2021-10-25 00:19 | NUR ---
PATIENT STILL YELLING OUT AND CONTINUES TO TRY AND KICK AND HIT HEARING SCREEN COORDINATOR MANISH WHO IS SITTING AT BEDSIDE. PATIENT WILL BE CALM AND COOPERATIVE AND THEN JUST IMPULSIVELY STRIKE OUT. 5MG PO HALODOL AND ULTRAM GIVEN. HEARING SCREEN COORDINATOR REMAINS AT BEDSIDE.
--- NOTE | 2021-10-25 02:02 | NUR ---
PATIENT CONTINUES TO YELL PERIODICALL AND CONTINES TO TAKE SWIPES AT THE DIRECTOR OF REVENUE CYCLE MANAGEMENT AT TIMES WITH HIS FIST OR WILL TRY TO KICK THE DIRECTOR OF REVENUE CYCLE MANAGEMENT FROM THE BED. PATIENT HAS STAYED IN BED HOWEVER WITH ALMOST CONSTANT REDIRECTION FROM THE STAFF OR THE DIRECTOR OF REVENUE CYCLE MANAGEMENT. SECURITY CONTINUES TO SIT AT BEDSIDE.
--- NOTE | 2021-10-25 02:45 | NUR ---
PATIENT YELLING FROM THE ROOM AND THIS RN WENT IN AND FOUND PATIENT WALKING AROUND THE ROOM TRYING TO GET PAST SECRETARY RECEPTIONIST TO THE ALEJO. PATIENT HAD GOT UP TO USE THE RESTROOM AND SECURITY HAD TRIED TO GET PATIENT TO USE THE TOILET AND PATIENT REFUSED AND URINATED ALL OVER THE BATHROOM FLOOR AND WALL. THIS RN CLEANED THAT UP AND HAD PATIENT COME AND SIT DOWN IN THE BATHROOM SO I COULD CHANGE HIS ATTENDS WHICH WERE SLIGHTLY WET FROM THE PROCESS. PATIENT ALSO HAD A SMALL SMEAR OF STOOL THAT WAS CLEANED UP. NEW ATTENDS ON. PATIENT HAS BEEN YELLING AT SECURITY TO GO AWAY AND YELLING "DON'T LOOK AT MY WIENER." PATIENT BACK IN BED AT THIS TIME, WITH BED ALARM ON, AND MANISH FROM SECURITY SITTING AT THE BEDSIDE.
--- NOTE | 2021-10-25 03:25 | NUR ---
PATIENT FINALLY ASLEEP, RESPIRATIONS ARE REGULAR AND EVEN, EYES CLOSED, BED ALARM IS ON, AND PATIENT CAN BE SEEN FROM THE NURSES STATION DESK THROUGH THE DOOR. REPAIR ARMATURE WINDER HELPER LEAVING TO DO ROUNDS AND WILL RETURN IF NEEDED.
--- NOTE | 2021-10-25 04:30 | NUR ---
PATIENT CNTINUES TO REST QUIETLY SUPINE, RESPIRATIONS ARE REGULAR AND EVEN, EYES ARE CLOSED, BED ALARM IS ON, AND CALL LIGHT IS IN REACH.
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
--- NOTE | 2021-10-25 06:31 | NUR ---
CALLED BACK AND GAVE NEW ORDERS FOR THE 2-5MG HALDOL TO BE GIVEN PO OR IM Q4/HRS PRN AGITATION. READ BACK TO AND VERIFIED. [place] HAS FALLEN BACK ASLEEP AT THIS TIME. CALL LIGHT IN REACH AND BED ALARM IS ON. NURSE PRACTITIONER ADULT AT THE DOOR.
--- NOTE | 2021-10-25 07:30 | NUR ---
Shift report recieved from MOE Zaidi, pt resting safely in bed w/ call light in reach and bed alarm on. Pt starting to get restless, PRN Halodol and Tramadol given per provider order, see EMAR. Pt denies any needs at this time
--- NOTE | 2021-10-25 08:00 | NUR ---
PATIENT UP TO BATHROOM AND THEN TO CHAIR FOR BREAKFAST, 1PA FWW. CLAY CARE DONE. NEW ATTENDS IN PLACE. PATIENT DID AM CARE AT SINK. PATIENT FOLLOWING DIRECTIONS VERY WELL THIS AM. PATIENT NOW IN CHAIR EATING BREAKFAST, CHAIR ALARM ON. LINENS CHANGED. CALL LIGHT IN REACH. NO FURTHER NEEDS AT THIS TIME.
--- NOTE | 2021-10-25 09:45 | NUR ---
Pt sitting up in chair w/ call light in reach and chair alarm on. Morning assesment complete and scheduled meds given per provider order. VSS on RA, pt denies any pain at this time. Cup of coffee and a magazine given upon request, pt denies any further needs at this time.
--- NOTE | 2021-10-25 12:00 | NUR ---
Pt sitting up in chair w/ call light in reach and chair alarm on, pt is eating lunch, denies any pain or needs at this time. Pt's door closed but curtain left open as pt is a high fall risk and hx of self transfering.
--- NOTE | 2021-10-25 14:18 | NUR ---
Pt currently showering w/ assistance from ANAT Braxton, pt denies any pain or other needs at this time, pt in a pleasant mood.
--- NOTE | 2021-10-25 14:27 | NUR ---
PATIENT UP TO BATHROOM THEN TO SHOWER CHAIR, 1PA FWW. SHOWER GIVEN. AM CARE, SKIN CARE, CLAY CARE, SHAVE, SHAMPOO DONE. NEW ATTENDS AND GOWN PROVIDED. PATIENT NOW BACK TO CHAIR, 1PA FWW. PATIENT IS IN GOOD SPIRITS AND FOLLOWING DIRECTIONS WELL. VITALS AND I&O'S CHARTED. CHAIR ALARM ON. CALL LIGHT IN REACH. NO FURTHER NEEDS AT THIS TIME.
--- NOTE | 2021-10-25 16:27 | NUR ---
Pt sitting up in chair w/ call light in reach and chair alarm on. Pt given scheduled meds per provider order. Pt denies any pain, cup of grape juice given upon request, pt denies any further needs at this time
--- NOTE | 2021-10-25 18:01 | NUR ---
Pt sitting up in chair eating dinner, w/ call light in reach and chair alarm on. Pt denies any pain or needs at this time, pt has remained in a pleasant mood the entire shift, w/ no aggresive outbursts.
--- NOTE | 2021-10-25 18:33 | NUR ---
PATIENT UP TO BATHROOM AND BACK TO CHAIR, 1PA FWW. PATIENT IN GOOD SPIRITS AND ACTING APPROPRIATLY. VITALS AND I&O'S CHARTED. FRESH WATER GIVEN. CALL LIGHT IN REACH. CHAIR ALARM ON. NO FURTHER NEEDS AT THIS TIME.
--- NOTE | 2021-10-25 19:11 | NUR ---
SHIFT REPORT RECEIVED FROM MOE TIAN. PATIENT SITTING IN THE BEDSIDE ARMCHAIR WITH CHAIR ALARM ON WATCHING TV. PATIENT HAS NO CURRENT CARE NEEDS AT THIS TIME.
--- NOTE | 2021-10-25 19:57 | NUR ---
CHAIR ALARM RINGING PATIENT UP SAYING,"MY CHAIR IS NOT WORKIN." TALKED PATIENT INTO SETTING DOWN AND PUT UP THE LEG REST UP ON THE CHAIR. CHAIR ALARM RESET. NO CARE NEEDS AT THIS TIME.
--- NOTE | 2021-10-25 20:13 | NUR ---
PATIENT REMAINS ONLY ORIENTED TO SELF. PATIENT IS COOPERATIVE WITH CARES AT THIS TIME AND TOOK PM ORAL MEDS WITHOUT DIFFICULTY. PATIENT IN BEDSIDE ARM CHAIR THAT IS RECLINED WITH CHAIR ALARM ON AT THIS TIME. PATIENT HAS NO OTHER CARE NEEDS AT THIS TIME AND VS ARE STABLE. PATIENT CONTINUES TO WATCH FUTBALL ON TV WHICH HE SEEMS TO ENJOY.
--- NOTE | 2021-10-25 21:36 | NUR ---
BED ALARM IS GOING OFF AND PATIEN GETTIG OUT OF BED. PATIENT SAYS HE HAS TO GO HOME. THIS RN TRIED TO REORIENT PATIENT WHERE HE WAS AND ABOUT HIS BROKEN HIP. PATIENT SAID, "I KNOW THAT AND GOT BACK INTO BED." BED ALARM BACK ON.
--- NOTE | 2021-10-25 21:42 | NUR ---
BED ALARM GOING OF AND PATIENT GETTING UP. PATIENT SAYS HE NEEDS TO GO TO THE BATHROOM. THIS RN TURNED ON BATHROOM LIGHT AND PATIENT IS CRAWLING BACK INTO BED. ASKED PATIENT IF HE NEEDED TO PEE AND SAID,"I ALREADY DID!" PATIENT'S ATTENDS DRAW AND BED ALARM IS BACK ON.
--- NOTE | 2021-10-25 21:45 | NUR ---
BED ALARM IS GOING OFF AND PATIENT TRYING TO GET UP AGAIN. THIS RN ASKKED PATIENT WHERE HE WAS GOING? PATIENT SAID,"I DIDN'T DO IT!" PATIENT LAYED BACK DOWN IN BED AND BED ALRM IS BACK ON.
--- NOTE | 2021-10-25 22:27 | NUR ---
BED ALARM SOUNDING, SBA WITH FWW TO RESTROOM AND BACK TO BED. pt DID NOT VOID IN RESTROOM. TURNS WALKER AROUND BACKWARDS AND PUSHES OUT OF WAY. pt GAIT UNSTEADY. BACK IN BED WITH BED ALARM IN PLACE. pt HAS SOUNDED ALARM X 3 IN LAST 30 MINS. MOE ROBERT NOTIFIED.
--- NOTE | 2021-10-25 22:45 | NUR ---
PATIENT BED ALARM WENT OFF AND PATIENT GETTING UP TO THE BATHROOM. WET ATTENDS TAKEN OFF PATIENT AND THEN HE URINATED ON THE FLOOR FROM THE BED TO THE TOILET AND VOIDED 200 IN THE TOILET. NEW ATTENDS AND GOWN IN PLACE AFTER PATIENT WASHED UP. PATIENT BACK IN BED WITH BED ALARM ON. HOUSEKEEPING JUST FINISHED MOPPING THE FLOOR. THIS RN CAN SEE PATIENT IN BED FROM THE NURSES STATION DESK.
--- NOTE | 2021-10-25 22:50 | NUR ---
PATIENT BED ALARM GOING OFF AND PATIENT TRYING TO GET UP. THIS RN REORIENTED PATIENT THAT HE WAS IN THE HOSPITAL. PATIENT LAYED BACK DOWN AND SAID,"THANK YOU DEAR!" BED ALARM BACK ON.
--- NOTE | 2021-10-25 23:19 | NUR ---
PATIENT REMAINS RESTLESS AND GETTING UP A LOT. PATIENT DENIES PAIN, BUT HIS ACTIONS SUGGEST HE IS HAVING SOME DISCOMFORT AND ULTRAM PO WAS GIVEN. PATIENT REMAINS IN BED AT THIS TIME WITH BED ALARM ON.
--- NOTE | 2021-10-25 23:48 | NUR ---
PATIENT BED ALRM GOING ON AND PATIENT GETTING OUT OF BED. THIS RN ASKED PATIENT WHAT HE NEEDNEEDED AND PATIENT SAID,"I LOST MY KEYS!" REORIENTED PATIENT TO BEING IN THE HOSPITAL AND PATIENT GOT BACK INTO BED. BED ALARM ON.
--- NOTE | 2021-10-25 23:53 | NUR ---
PATIENT GETTING OUT OF BED AGAIN AND ALARM GOING OFF. THIS RN ASKED PATIENT WHERE HE WAS GOING AND PATIENT SAID,"NOWHERE!" PATIENT GOT BACK INTO BED AND BED ALARM BACK ON.
--- NOTE | 2021-10-25 23:59 | NUR ---
PATIENT BED ALARM GOING OF AND PATIENT GETTING UP. THIS RN REMAINED PATIENT HE IS IN THE HOSPITAL AND HE GOT BACK INTO BED. WARM BLANKETS GIVEN TO PATIENT AND BED ALARM TURNED BACK ON.
--- NOTE | 2021-10-26 00:06 | NUR ---
BED ALARM GOING OFF AGAIN AND PATIENT TRYING TO GET UP. PATIENT SAID,"I LOST SOMETHING!" PATIENT COULDN'T TELL ME WHAT HE LOST AND IS LAYING BACK DOWN. BED ALARM BACK ON.
--- NOTE | 2021-10-26 00:16 | NUR ---
PATIENT ALARM GOING OFF AGAIN. PATIENT GETTING UP AND SAYS HE NEEDS TO GO TO WORK. REMINDED PATIENT WHERE HE WAS AND WHAT TIME OF DAY IT WAS AND PATIENT LAYED BACK DOWN. BED ALARM BACK ON.
--- NOTE | 2021-10-26 00:35 | NUR ---
PATIENT BED ALARM GOING OFF AND PATIENT UP HEADED FOR THE BATHROOM. PATIENT VOIDED ON THE FLOOR FROM THE BED TO THE TOILET, 300MLS URINE IN HAT, AND ATTENDS WE WELL. PATIENT WASHED UP AND NEW ATTENDS IN [place]. PATIENT BACK IN BED WITH BED ALARM ON. THIS RN MOPPED UP PATIENT'S ROOM AND DRIED THE FLOOR.
--- NOTE | 2021-10-26 00:40 | NUR ---
PATIENT GETTING UP AGAIN AND ALARM GOING OFF. PATEINT SAYS HE HAS SOME GARBAGE INHIS HAND HE NEEDS TO THROUGH AWAY. THERE IS NOTHING IN THE PATIENT'S HAND, BUT PATIENT TRIED TO THROUGH WHATEVER HE THOUGHT WAS IN HIS HAND INTO THE WASTE BASKET. SO PATIENT IS HAVING SOME HALLUCINATIONS AT THIS TIME. PATIENT LAYED BACK DOWN AFTER HE FELT HE HAD THROWN AWAY HIS TRASH. BED ALARM BACK ON.
--- NOTE | 2021-10-26 02:55 | NUR ---
PATIENT FINALLY WENT TO SLEEP AND BEEN SLEEING ABOUT TO HOURS. THIS RN CAN VISUALIZE PATIENT IN HIS ROOM AT THIS TIME FROM THE NURSES DESK. RESPIRATIONS ARE REGULAR AND EVEN AND EYES ARE CLOSED. BED ALARM IS ON. PATIENT HAS NO CARE NEEDS AT THIS TIME.
--- NOTE | 2021-10-26 03:30 | NUR ---
BED ALARM GOING OFF PATIENT HEADED TO THE RESTROOM. STAFF HAS TRIED TO GET PATIENT TO USE HIS WALKER WHEN HE IS UP, BUT PATEINT HAS NO USE FOR IT AND WAVES YOU AWAY WHEN YOU TRY TO HELP HIM WITH IT. THIS RN WALKED PATIENT INTO THE RESTROOM, HE VOIDED 300MLS AND IS NOW BACK IN BED WITH BED ALARM ON. PATIENT HAS NO OTHER CARE NEEDS AT THIS TIME.
--- NOTE | 2021-10-26 03:38 | NUR ---
PATIENT ALARM GOING OFF PATIENT TRYING TO GET UP AND SAYS HE NEEDS TO GET TO WORK. REORIENTS PATIENT TO TIME OF DAY AND THAT HE IS IN THE HOSPITAL. BED ALARM BACK ON.
--- NOTE | 2021-10-26 03:39 | NUR ---
PATIENT GETTING OUT OF BED AGAIN,"I HAVE TO GET DRESSED AND GO TO WORK." TRIED TO REORIENT PATIENT TO BEING IN THE HOSPITAL AGAIN AND HE IS LAYING DOWN BED ALARM ON.
--- NOTE | 2021-10-26 06:52 | NUR ---
PATIENT HAS SLEPT SINCE MY LAST NOTE. PATIENT IS COOPERATIVE AT THIS TIME. VS STABLE. PATIENT TOOK HIS AM MEDIC ATION AND SEEMS TO BE IN A PRETTY PLEASANT MOOD THIS AM. PATIENT HAS HAD A PRETTY GOOD NIGHT AND HAS NOT BEEN COMBATIVE OR AGRESSIVE THIS ASHIFT. BED ALARM REMAINS ON AND PATIENT IS WATCHING TV.
--- NOTE | 2021-10-26 07:33 | NUR ---
Patient resting in bed, no distress. Patient close to RN station. Bed alarm intact.
--- NOTE | 2021-10-26 08:06 | NUR ---
PATIENT UP TO CHAIR FOR BREAKFAST, 1PA FWW. CALL LIGHT IN REACH. CHAIR ALARM ON. NO FURTHER NEEDS AT THIS TIME.
--- NOTE | 2021-10-26 08:30 | NUR ---
Spoke with Keren from [facility] and received her email and Art's email from [facility]. Sent requests for zoom meeting so Art can evaluate Valentin for placement.
--- NOTE | 2021-10-26 09:27 | NUR ---
PATIENT SITTING UP IN CHAIR WATCHING TV. VITALS AND I&O'S CHARTED. AM CARE DONE. CAHIR ALARM ON. CALL LIGHT IN REACH. NO FURTHER NEEDS AT THIS TIME.
--- NOTE | 2021-10-26 10:58 | NUR ---
PT SITTING IN CHAIR, THUMBING THROUGH PAPER. TV ON, PT AND I DISCUSSED HIS FOOTBALL TEAMS MOST RECENT LOSS-HE HAD AN OPINION. PT STATED THAT WE HAVE A REAL GOOD STAFF HERE! WILL FOLLOW
--- NOTE | 2021-10-26 11:17 | NUR ---
Patient resting in chair, no distress. Patient pleasant with staff this morning. Chair alarm intact. Patient has no current needs. Personal supplies and call light within reach.
--- NOTE | 2021-10-26 13:00 | NUR ---
Met by zoom with pt and Art Carballo from [facility]. Margarita Chase, Rn in the room. Art asked Valentin questions and also had him stand and walk with the walker. He requested face sheet, med list, h&P, and progress notes. When I printed the chart, I realized medicaid has not been updated. Attempted to call Keren from [facility], no answer. Called Tracy Damico from [facility] and she states she cannot find where he has been approved. Called and spoke with Art and he states [facility] notified him pt has Medicaid and he is willing to accept their word. Faxed above as requested to [phone]. [facility] [phone] cell or [phone].
--- NOTE | 2021-10-26 13:42 | NUR ---
Patient awake sitting up in chair. Patient has no distress. Chair alarm intact. Patient close to RN station.
--- NOTE | 2021-10-26 14:05 | NUR ---
PATIENT UP TO BATHROOM AND BACK TO BED, 1PA FWW. CHAIR ALARM ON. VITALS AND I&O'S CHARTED. CALL LIGHT IN REACH. NO FURTHER NEEDS AT THIS TIME.
--- NOTE | 2021-10-26 15:15 | NUR ---
Ultram 50mg po admin for left hip pain.
--- NOTE | 2021-10-26 15:50 | NUR ---
Patient agitated with this RN. Patient up for walk with Security at this time.
--- NOTE | 2021-10-26 16:44 | NUR ---
Called and spoke with Art to confirm he recieved fax. for Valentin. He had left a message he had not received my fax. Refaxed at 1400. Art states he did receive the fax and will meet with his team tomorrow and let us know if they can accept this pt.
--- NOTE | 2021-10-26 16:52 | NUR ---
Patient in bed resting, no distress. Patient is on room air, respiraitons even and non labored. Close to RN station. No needs at this time. Bed alarm intact.
--- NOTE | 2021-10-26 17:53 | NUR ---
PATIENT TO CHAIR FROM BED, 1PA FWW. VITALS AND I&O'S CHARTED. FRESH WATER GIVEN. CALL LIGHT IN REACH. CHAIR ALARM ON. NO FURTHER NEEDS AT THIS TIME.
--- NOTE | 2021-10-26 18:29 | NUR ---
Haldol 5mg po admin for agitation.
--- NOTE | 2021-10-26 18:35 | EKG ---
[facility] [address] [place], [place] [address] \T\ T wave abnormality, consider inferior ischemia Abnormal ECG When compared with ECG of 21-OCT-2021 19:03, Questionable change in QRS axis ST now depressed in Inferior leads Confirmed by BOY MCKEON DO ([id number]) on 10/26/2021 6:35:23 PM Electronically Signed By: BOY MCKEON DO 10/26/21 1835 PATIENT NAME: MARK SCHAFER Electrocardiogram DATE OF : 52 PHYSICIAN: BOY MCKEON DO REPORT #: [id number] REPORT IS CONFIDENTIAL AND NOT TO BE RELEASED WITHOUT AUTHORIZATION
--- NOTE | 2021-10-26 19:27 | NUR ---
REPORT RECEIVED FROM DAY SHIFT RN. PT CONFUSED. BEING PUSHED BY ARMORED TRANSPORT SERVICE MANAGER IN WHEELCHAIR AROUND UNIT. WHITE BOARD UPDATED.
--- NOTE | 2021-10-26 20:26 | NUR ---
EVENING ASSESSMENT COMPLETE. SCHEDULED MEDS ADMINSITERED PER EMAR. PT CONFUSED AND AGITATED. SBA WITH FWW TO BR TO VOID. PT INCONTINENT WELL. CLEAN BRIEF PROVIDED. BACK TO BED. GAIT WEAK BUT STEADY. PT NOT ABLE TO FOLLOW COMMANDS OR USE WALKER SAFELY. PT DENIES PAIN. FELIPA TO LEFT HIP INTACT. NO REDNESS OR DRAINAGE NOTED. EVENING SNACK PROVIDED. SECURITY REMAINS AT BEDSIDE. PT IN VIEW OF NURSES STATION. BED ALARM ON.
--- NOTE | 2021-10-26 21:00 | NUR ---
PT LYING IN BED. PT NOTED TO GRIMACE AND STATES "YES" WHEN ASKED IF HE WAS IN PAIN. PRN FOR PAIN ADMINISTERED PER EMAR. PT PLEASANT AND COOPERATIVE AT THIS TIME. DENIES FURTHER NEEDS. BED ALARM ON. FIELD REP AT BEDSIDE.
--- NOTE | 2021-10-26 21:43 | NUR ---
pt WALKING OUT OF ROOM WITHOUT WALKER. WALKER PROVIDED, pt ABLE TO AMBULATE WITH INSTRUCTION IN HALLWAY. STATES HES TIRED. WHEELCHAIR PROVIDED. pt PUSHED IN WHEELCHAIR MULTIPLE LAPS BY RN. pt BACK IN ROOM. OFFERED TOILETING, DENIES NEED. UP IN CHAIR WATCHING FISHING SHOW. CHAIR ALARMS ON. CURTAIN OPEN FOR CLOSE VIEW FROM NURSES STATION.
--- NOTE | 2021-10-26 22:10 | NUR ---
SAT IN ROOM WITH PATIENT AND ASSISTED PT. IN ROOM WITH NECESSARY NEEDS FOR THE PAST HOUR WHILE SECURITY TOOK A BREAK.
--- NOTE | 2021-10-26 23:39 | NUR ---
PT WITH LEGS OVER SIDE OF BED. IN ROOM TO ASSIST PT BACK TO BED AND REPOSITION FOR COMFORT. PT COOPERATIVE AND PLEASANT. BED ALARM FOR SAFETY. PT IN VIEW OF RATE EXAMINER OUTSIDE OF ROOM.
--- NOTE | 2021-10-26 23:59 | NUR ---
BED ALARM SOUNDING. PT WITH LEGS OVER THE SIDE OF BED TRYING TO GET UP WITH NO ASSIST. PT UP TO BR WITH SBA AND FWW. PT DOES NOT USE WALKER SAFELY AND DOES NOT FOLLOW COMMANDS WELL. PT ABLE TO VOID 200 ML YELLOW URINE. BACK TO BED, EL WELL. BED ALARM ON. INTERVENTIONAL NURSE WATCHING PT FROM HALLWAY.
--- NOTE | 2021-10-27 00:55 | NUR ---
SAT AND OBSERVED PT. FROM OUTSIDE ROOM FOR THE PAST 2.5 HOURS. ASSISTED WITH PATIENT CARE. ASSISTED PATIENT TO AND FROM BED NEEDED. CALL LIGHT WITHIN REACH. NO OTHER IMMEDIATE NEEDS AT THIS TIME.
--- NOTE | 2021-10-27 01:43 | NUR ---
BED ALARM SOUNDING, pt REMAINS RESTLESS. PRN AGITATION AND PAIN MEDICATION ADMINISTERED. pt IS ORIENTED TO SELF AND BIRTHDATE WITH MEDICATION ADMINISTRATION. REORIENTATION TO TIME PROVIDED. pt TELLING RN STORY ABOUT HIS BIRTHDAY IN THE SUMMER AND HOW HIS MOMS DOG WOULD PROTECT THEM. pt LYING DOWN. LIGHTS OFF IN ROOM. BED ALARM ON.
--- NOTE | 2021-10-27 01:59 | NUR ---
BED ALARM SOUNDING. PT TRYING TO GET OUT OF BED. IN ROOM TO REDIRECT. PT COOPERATIVE. BACK IN BED. BED ALARM ON.
--- NOTE | 2021-10-27 02:12 | NUR ---
BED ALARMING. WENT IN TO THE ROOM AND TALKED TO PATIENT THAT IT STILL BED TIME AND CONVINCED TO STAY IN BED. PATIENT STAYED FOR A FEW MINUTES THEN TRIED TO GET UP AGAIN. MOE MACIEL WAS IN THE ROOM ATTENDING HIM.
--- NOTE | 2021-10-27 02:19 | NUR ---
PT WITH LEGS OVER THE SIDE OF THE BED. IN TO ASSIST. PT HALLUCINATING ABOUT RATTLE SNAKES. ASSISTED TO REPOSITION IN BED. SIPS OF WATER PROVIDED. OFFERED TOILET, PT REFUSES. BED ALARM ON. PT IN VIEW OF NURSES STATION.
--- NOTE | 2021-10-27 03:12 | NUR ---
PT CONTINUES TO BE RESTLESS IN BED PULLING BLAKETS AND HALLUCINATING ABOUT BIRDS AND SNAKES IN HIS ROOM. PT REPORTS HAVING A HEADACHE. PRN TYLENOL ADMINISTERED PER EMAR. VS AND ASSESSMENT COMPLETE. IN ROOM WITH PT FOR APPROX 10 MINUTES HAVING A PLEASANT CONVERSATION ABOUT HIS CAREER A SHERIFFS OFFICER. ASSISTED PT TO REPOSITION FOR COMFORT. DENIES FURTHER NEEDS. BED ALARM ON. SECURIT OUTSIDE OF PT DOOR FOR CLOSE OBSERVATION.
--- NOTE | 2021-10-27 04:15 | NUR ---
PT RESTING IN BED WITH EYES CLOSED. RESPIRATIONS EVEN. BED ALARM ON. PT IN VIEW OF NURSES STATION.
--- NOTE | 2021-10-27 05:20 | NUR ---
BED ALARM SOUNDING. pt OUT OF BED. DIFFICULTY COORDINATING WITH FWW. 1PA TO RESTROOM. GUIDED pt TO SIT ON TOILET, INCONTINENT IN ATTENDS, ATTENDS CHANGED, pt CLEANED WITH BATH WIPES. NO ADDITIONAL VOID IN TOILET. pt ASSISTED BACK TO BED. BED ALARM ON. DRINKS OF WATER PROVIDED.
--- NOTE | 2021-10-27 06:29 | NUR ---
pt SITTING UP IN BED. REORIENTATION TO TIME OF DAY PROVIDED. pt LAYS BACK DOWN. BED ALARM IN PLACE.
--- NOTE | 2021-10-27 06:49 | NUR ---
BED ALARM SOUNDING. 1PA TO RESTROOM FOR VOID. 300 ML YELLOW URINE EMPTIED FROM TOILET AND INCONTINENT IN ATTENDS. ATTENDS CHANGED. pt BACK IN BED, SITTING UP. MOE MACIEL IN ROOM FOR MEDICATION ADMINISTRATION. BED ALARM ON.
--- NOTE | 2021-10-27 06:52 | NUR ---
PT PLEASANT AND COOPERATIVE. SCHEDULED MEDS ADMINISTRATED. PT REPORTS HEADACHE IMPROVED. PT DENIES NEEDS. BED ALARM IN PLACE.
--- NOTE | 2021-10-27 07:25 | NUR ---
BEDSIDE REPORT FROM JANELL RN, PT RESTING IN BED EYES CLOSED RR EVEN 16 BPM, NO DISTRESS NOTED AT THIS TIME.
--- NOTE | 2021-10-27 07:45 | NUR ---
PT UP TO BATHROOM , THEN UP TO CHAIR FOR SNACK AND BREAKFAST. PT LIMP AND REPORTS PAIN "A LITTLE" AT LEFT HIP
--- NOTE | 2021-10-27 09:05 | NUR ---
PATIENT UP TO BATHROOM, AMBULATED IN HALLWAY, THEN TO CHAIR FOR BREAKFAST, 1PA FWW. VITALS AND I&O'S CHARTED. CHAIR ALARM ON. LINENS CHANGED. CALL LIGHT IN REACH. NO FURTHER NEEDS AT THIS TIME.
--- NOTE | 2021-10-27 11:07 | NUR ---
Pt walking in olivarez, pleasant mood. I have not heard from [facility]. Did receive a call from Keren from [facility] and attempted to return her call. Message left.
--- NOTE | 2021-10-27 12:00 | NUR ---
PT HAS BEEN UP AMBULATING IN HALLS WITH THEAPY, TOLERATING ACTIVITY WELL WITH STANDBY ASSIST AND FWW. COOPERATING WITH CARE
--- NOTE | 2021-10-27 12:32 | NUR ---
PT ASLEEP, DID NOT DISTURB
--- NOTE | 2021-10-27 13:19 | NUR ---
PATIENT IN CHAIR RESTING WITH EYES CLOSED. VITALS AND I&O'S CHARTED. PATIENT WAS UP TO BATHROOM AND BACK TO CHAIR EARLIER, 1PA. CALL LIGHT IN REACH. CHAIR ALARM ON. NO FURTHER NEEDS AT THIS TIME.
--- NOTE | 2021-10-27 14:05 | NUR ---
PT SITTING UP IN HIS RECLINER WATCHING TV AFTER EATING LUNCH, NO DISTRESS NOTED.
--- NOTE | 2021-10-27 15:27 | NUR ---
PT ASKED TO USE THE RESTROOM BUT WASNT SURE HE HAD TIME TO MAKE IT ALL THE WAY THERE. PT WAS ABLE TO STAND AT THE SIDE OF THE BED AND USE THE URINAL. PT NOW BACK IN BED AND WATCHING TV. CALL LIGHT WITHIN REACH. BED ALARM ON. NO FURTHER NEEDS AT THIS TIME.
--- NOTE | 2021-10-27 16:00 | NUR ---
Attempted to call Cordova at [facility], no answer. I spoke with Keren from [facility] earlier. She had stated she would be calling them and let me know if he was accepted. She again states pt has been accepted on medicaid, she has not completed the case from her end.
--- NOTE | 2021-10-27 17:42 | NUR ---
PATIENT SITTING UP IN CHAIR RESTING. VITALS AND I&O'S CHARTED. CHAIR ALARM ON. CALL LIGHT IN REACH. NO FURTHER NEEDS AT THIS TIME.
--- NOTE | 2021-10-27 17:45 | NUR ---
PT UP IN RECLINER ATE 100% OF DINNER. COOPERATIVE WITH CARE. NO REQUESTS.
--- NOTE | 2021-10-27 18:49 | NUR ---
PT HAS BEEN COOPERATIVE WITH CARE, AND DIRECTABLE. HE HAS BEEN AWAKE UP IN RECLINER MOST OF SHIFT, HE DID HAVE A 30MIN NAP AFTER WORKING WITH P.T., HE HAS 100% CONSUMPTION OF MEALS, VOIDING WELL Q.S., BM TODAY. WAITING TO HEAR FROM FACILITY ON ACCEPTANCE OR NOT.
--- NOTE | 2021-10-27 19:14 | NUR ---
REPORT RECEIVED FROM DAY SHIFT RN. PT SITTING IN RECLINER AWAKE DRINKING ORANGE JUICE. BLANKET PROVIDED. CHAIR ALARM IN PLACE. DENIES NEEDS AT THIS TIME. PT IN VIEW OF NURSES STATION.
--- NOTE | 2021-10-27 19:46 | NUR ---
PT UP TO BR WITH SBA TO VOID. PT INCONTINENT OF URINE WELL. CLAY CARE DONE. CLEAN BRIEF AND GOWN PROVIDED. PT PLEASANT AND COOPERATIVE WITH CARES. BACK TO BED. BED ALARM IN PLACE.
--- NOTE | 2021-10-27 20:45 | NUR ---
BED ALARM SOUNDING. PT FOUND IN BATHROOM WITH BLANKET ENTANGLED AROUND HIS LEGS. PT TO TOILET TO VOID. ASSITED TO CHANGE BRIEF DUE TO INCONTINENCE. BACK TO BED. PT PLEASANT WITH CARES AND FOLLOWING COMMANDS. BED ALARM IN PLACE. CONSTRUCTION WORKER NOTIFIED. SECURITY TO ROOM FOR 1:1.
--- NOTE | 2021-10-27 21:30 | NUR ---
EVENING ASSESSMENT COMPLETE. SCHEDULED MEDS ADMINISTERED PER EMAR. PT BECOMING AGITATED. EASILY REDIRECTABLE AT THIS TIME. PRN FOR PAIN ADMINISTERED PT HOLDING HIP IN BED. FELIPA TO LEFT HIP INTACT. NO REDNESS OR DRAINAGE NOTED. SBA TO BR TO VOID. GAIT WEAK. BACK TO BED, EL WELL. BED ALARM PLACED. SECURITY ON UNIT TO OBSERVE PT. BED ALARM FOR SAEFTY.
--- NOTE | 2021-10-27 22:15 | NUR ---
PT CLIMBING OUT OF BED, SECURITY GOT THIS RN, PT NEEDED TO USE BATHROOM, STARTED TO GO WRONG DIRECTION BUT REDIRECTED TO BATHROOM, THEN HE SAID ALL I WANT IS PRIVACY. PT ALLOWED RN TO STAY WITH HIM UNTIL HE WAS SAFE, VOIDED AND WALKED BACK TO BED WITHOUT PULLING UP HIS DEPENDS, SECURITY BROUGHT IT TO HIS ATTENTION, AND PT WASN'T AWARE THEY WEREN'T UP. ASSISTED HIM, HE GOT INTO BED. ALARMS PLACED, SECURITY SHUT LIGHTS OFF, THIS RN OUT OF ROOM.
--- NOTE | 2021-10-27 23:20 | NUR ---
SECURITY STEPPED OUT OF ROOM. THIS RN OBSERVING PT. PT TRYING TO GET OUT OF BED TO GO TO WORK. ATTEMPTED TO REORIENT PT OF PLACE AND TIME OF DAY. PT BACK TO BED. PT REMAINS PLEASANT AND COOPERATIVE. DENIES PAIN. DENIES NEEDING TOILET. ASSISTED TO REPOSITION FOR COMFORT. BED ALARM IN PLACE. THIS RN REMAINS AT BEDSIDE.
--- NOTE | 2021-10-28 01:05 | NUR ---
BED ALARMING. PATIENT TRIED TO GET UP. SECURITY WENT IN THE ROOM. THIS POWER BUILDER DEVELOPER WENT INTO THE ROOM. PATIENT IS BACK IN BED LAYING DOWN. WARM BLANKET PROVIDED. BED ALARM ON.
--- NOTE | 2021-10-28 01:48 | NUR ---
PT UP TO BR WITH SBA AND FWW TO PASS LARGE AMOUNT OF GAS. PT INCONTINENT OF URINE. CLAY CARE DONE. PT NOT USING WALKER SAFELY AND NOT ABLE TO FOLLOW COMMANDS. SBA BACK TO BED. PT BRIEFLY AGITATED DURING CARES. IN BED AT THIS TIME. WARM BLANKET AND SIPS OF WATER PROVIDED. BED ALARM ON. PT IN VIEW OF NURSES STATION.
--- NOTE | 2021-10-28 02:00 | NUR ---
PT WITH LEGS OVER SIDE OF BED SETTING BED ALARM OFF. IN TO ASSIST. WHILE REPOSITIONING IN BED PT MOANS AND GRABS LEFT HIP. PRN FOR PAIN ADMINISTERED PER EMAR. SECURITY AT BEDSIDE 1:1. BED ALARM ON.
--- NOTE | 2021-10-28 03:21 | NUR ---
TRAVIS NOTIFIED NURSING PT NEEDED TO USE BATHROOM. ASSIST TO STABLIZE HIM, HE IS FAIRLY SLEEPY, AMBULATE TO BATHROOM AND URINATED. BACK TO BED, SLOW AND SL UNSTEADY. ALLOWED STAFF TO ASSIST HIM BY HOLDING HIS HANDS, AND POLITE AND COOPERATIVE. BED ALARM PLACED, BLANKETS PROVIDED, HOB LOWERED.
--- NOTE | 2021-10-28 03:30 | NUR ---
PT RESTING IN BED WITH EYES CLOSED. RESPIRATIONS EVEN. BED ALARM IN PLACE. SECURITY AT BEDSIDE FOR 1:1.
--- NOTE | 2021-10-28 04:51 | NUR ---
PATIENT ASSISTED TO THE RESTROOM A 1PA. PATIENT WAS ABLE TO VOID. ATTEND IS DRY. PATIENT ASSISTED BACK TO THE BED. PATIENT STRUGGLE TO FOLLOW DIRECTIONS. PATIENT DID NOT USE WALKER. PATIENT IS BACK IN BED RESTING. BED ALARM ON FOR SAFETY. CALL LIGHT IN REACH. VITALS TAKEN. PRIMARY RN PRESENT IN ROOM TO ASSES. PATIENT NO FURTHER NEEDS NOTED. CALL LIGHT IN REACH. SECURITY NOW PRESENT IN ROOM.
--- NOTE | 2021-10-28 04:57 | NUR ---
PT UP TO BR WITH SBA TO VOID. GAIT WEAK. BACK TO BED. VS AND I&O OBTAINED. SIPS OF WATER PROVIDED. BED ALARM ON. SECURITY 1:1 AT BEDSIDE.
--- NOTE | 2021-10-28 06:32 | NUR ---
BED ALARM SOUNDING. PT UP TO BR TO VOID 200 ML WITH 1PA. GAIT WEAK. PT HOLDING LEFT HIP. BACK TO BED, EL WELL. PRN FOR PAIN ADMINISTERED PER EMAR. SCHEDULED MEDS ADMIN. PT PLEASANT AND COOPERATIVE. WARM BLANKET PROVIDED. BED ALARM FOR SAFETY. PT IN VIEW OF NURSES STATION.
--- NOTE | 2021-10-28 07:16 | NUR ---
Emailed Sabina Alvarez from [facility] and requested, when she has time, to check if pt now is listed on MMIS for Medicaid. Pt has not showed approved. I have been reassured by [employer] for over a week pt has medicaid, this affects placement and transportation.
--- NOTE | 2021-10-28 07:30 | NUR ---
Shift report received from RN Sariah, pt resting safely in bed w/ call light in reach, bed alarmon, and eyes closed. RR even and unlabored on RA
--- NOTE | 2021-10-28 08:34 | NUR ---
PT UP IN CHAIR. MOE TIAN GETTING VS. AM CARE DONE. WHITE BOARD UPDATED. CALL LIGHT WITHIN REACH, NO FURTHER NEEDS AT THIS TIME.
--- NOTE | 2021-10-28 09:04 | NUR ---
SPOKE WITH MEGHAN SMALL FOR , IN ROUNDING THIS AM, ASKED HER WHEN PT'S FELIPA AND LEFT HIP SURGERY SITE WILL NEED TO BE REMOVED, SHE SAID SHE WILL CHECK FOR READY TO REMOVE IN ANOTHER 2 DAYS, IF PT IS GOING TO BE PLACED AND DISCHARGED TO NOTIFY HER AND SHE WILL CHECK SOONER. NOTIFIED CASE MANAGEMENT AND IN AM ROUNDING MEETING.
--- NOTE | 2021-10-28 09:22 | NUR ---
Bed alarm, alarming, pt attempting to get out of bed, pt alert but only oriented to self, 1PA w/FWW to BR, pt incont of urine but conitnent of BM. Pt assisted w/ dressing wearing hospital scrubs, now sitting up in chair w/ call light in reach and chair alarm on. Morning assesment complete and scheduled meds given per provider order. Pt eating breakfast, denies any pain or needs at this time.
--- NOTE | 2021-10-28 09:36 | NUR ---
PT IN CHAIR WITH FEET UP. BREAKFAST SERVED. CALL LIGHT WITHIN REACH, NO FURTHER NEEDS AT THIS TIME
--- NOTE | 2021-10-28 09:49 | NUR ---
Attempted to contact Art from [facility] by phone. Unable to reach and left a message requesting a return call when he is available.
--- NOTE | 2021-10-28 10:30 | NUR ---
Received a return call from Art. They will not accept this pt at this time as he does not sleep and they do not have the staff for 1:1 care. Again called [facility] and they are not accepting any pts due to staffing. Rochelle gave me the number of [facility] in the [facility]. Called and they are not accepting pts. CRISTINA was able to give me the name of [facility] in [place], [place]. They have a SNF, AL, memory care and have openings. I called and was told they do have openings and take Medicaid or Medicare depending on the need for placement. Phone number [phone]. Ann Durand will return my call. Will await her call.
--- NOTE | 2021-10-28 11:58 | NUR ---
ATTEMPTED TO REACH JENN HUYNH BY PHONE. [phone]. MESSAGE LEFT FOR CALLBACK IN REGARDS TO PATIENTS MEDICAID IS NOT SHOWING IN SYSTEM FOR A PAYOR SOURCE. ALSO THAT WE HAVE A POSSIBLE OPEN BED AT A FACILITY IN [place] AND THEY ARE NOT GOING TO ACCEPT IF THEY HAVE NO PAYOR SOURCE. REQUESTED CALL BACK TO MYSELF OF [facility] DISCHARGE OFFICE. CONTACT NUMBERS LEFT. ASKED FOR CALL VIRIDIANA.
--- NOTE | 2021-10-28 12:46 | NUR ---
Pt ambulated in hallway 2 full laps, SBA w/FWW, pt now sitting in chair w/ legs elevated, call light in reach, and chair alarm on. Pt given fresh ice water, denies any other needs at this time
--- NOTE | 2021-10-28 13:54 | NUR ---
PT RECLINING IN CHAIR WATCHING TV. CALL LIGHT WITHIN REACH, NO FURTHER NEEDS AT THIS TIME
--- NOTE | 2021-10-28 15:30 | NUR ---
Pt sitting up in chair w/ call light in reach and chair alarm on, scheduled meds given per provider order, pt denies any pain or needs at this time. Pt remains oriented to self only, in a pleasant mood.
--- NOTE | 2021-10-28 16:26 | NUR ---
report received from Vonda ROSA. Pt walked hallways several times with staff,[id number]/fcc. Back to room.
--- NOTE | 2021-10-28 17:25 | NUR ---
In chair, eating, calm at this time
--- NOTE | 2021-10-28 17:45 | NUR ---
Received a call from Keren at [facility] and had lengthy conversation. She also spoke with Art and was informed he cannot take this pt. We then reviewed the multiple SNFs (7) and AFLS/residential cares/ AFC (7) I have attempted to place this pt. Pt has been declined by all. I do have a place in [place], but ran into a snag as pt is not showing as having medicaid. Keren states this has been corrected and I do believe she is correct as I contacted Tracy Damico prior to this call and she could see a prime number. I emailed this to admitting and asked them to check again. Clara will send me a list of AFC taking medicaid as the state is offering a $10,000 bonus for AFC who are will to take a pt directly from a hospital. She will email me her list a we will work on this together. She also is contacting the complex placement team through the state. I had attempted this earlier, but pt did not qualify as he did not have medicaid. Will cont. to work on this placement.
--- NOTE | 2021-10-28 18:06 | NUR ---
pt was belligerent, aggressive, non redirectable, Male Security staff and RN in room. increaed agitation. Dr Simental notified. new order for IM Haldol obtained. Pt in chair. procedure explained, was cooperative. Medicated with Haldol IM R ARM
--- NOTE | 2021-10-28 18:24 | NUR ---
GOLF CADDY BECKY AND SECURITY SITTING WITH PT. CALL LIGHT WITHIN REACH, NO FURTHER NEEDS AT THIS TIME
--- NOTE | 2021-10-28 18:41 | NUR ---
still verbally irritable, redirected by oracle security consultant and charge nurse
--- NOTE | 2021-10-28 18:58 | NUR ---
in bed, room air, calm, quiet, watching tv, security system administrator in room.
--- NOTE | 2021-10-28 19:15 | NUR ---
SHIFT REPORT RECEIVED FROM DAYSHIFT RN IAN AT BEDSIDE, pt AWAKE AND RESTING IN BED. SECURITY REMAINS WITH pt, CALL LIGHT IN REACH.
--- NOTE | 2021-10-28 20:57 | NUR ---
ASSESSMENT COMPELTE, SCHEDULED MEDS GIVEN, SEE EMAR. pt INTERACTIVE WITH STAFF AND PLEASANT AT THIS TIME. REPORTS PAIN IN LEFT HIP, UNABLE TO RATE. pt BACK IN BED AFTER SBA TO VOID. SECURITY REMAINS IN ROOM WITH pt.
--- NOTE | 2021-10-28 21:15 | NUR ---
pt is on the toilet, pt requesting a nurse to help him instead of the data security coordinator, this bakery technician in to assist pt with wiping and new pants on, new socks once pt laided back in bed, no further needs at this time
--- NOTE | 2021-10-29 00:35 | NUR ---
pt RESTING IN BED, AWAKE. BED ALARM REMAINS ON FOR SAFETY, REPRODUCTION ARTIST ALSO REMAINS WITH pt. CALL LIGHT IN REACH, pt IN VIEW OF RN STATION.
--- NOTE | 2021-10-29 02:03 | NUR ---
pt BECOMING MORE RESTLESS IN BED, SECURITY WITH pt. pt UNABLE TO RATE PAIN ON PAIN NUMBER SCALE, PRN PAIN MEDICATION GIVEN, SEE EMAR. pt DRINKING APPLE JUICE, NO FURTHER NEEDS. WILL CONTINUE TO MONITOR RETLESSNESS AND AGITATION. BED ALARM ON. pt IN VIEW OF RN STATION.
--- NOTE | 2021-10-29 03:40 | NUR ---
PRN TYLENOL GIVEN, SEE EMAR. pt REMAINS IN BED, SECURITY ALSO IN ROOM.
--- NOTE | 2021-10-29 04:21 | NUR ---
SECURITY OUT TO SAY PT NEEDED TO USE TOILET. LAND RECLAMATION SPECIALIST ASSISTED THIS NURSE WAS NEEDED IN ANOTHER ROOM. DID ASSIST PT BACK TO BED, WHILE REDIRECTABLE, HE CLOSES HIS EYES FOR SHORT TIME, THEN OPENS AND STARTS TALKING. PT HAS NOT BEEN ASLEEP SINCE THIS SHIFT BEGAN. STARTS TO DRIFT OFF, THEN OPENS EYES TO GO HOME, REDIRECT TO SLEEP, APPEARS SLEEPY, BUT WILL START TO GET OUT OF BED TO GO HOME, OR GO KILL A MOUNTAIN LION. HAS BEEN MEDICATED FOR PAIN, WILL START TO SLEEP AND PERHAPS HIS LEFT LEG WILL JUMP, AND WAKE HIM UP. CONTINUE 1:1 AT THIS TIME.
--- NOTE | 2021-10-29 06:11 | NUR ---
VSS AND I&O'S COMPLETE. FRESH ICE WATER PROVIDED. pt REDIRECTED BACK IN BED, SECURITY REMAINS IN ROOM WITH pt. CALL LIGHT IN REACH AND pt IN VIEW OF RN STATION.
--- NOTE | 2021-10-29 06:18 | NUR ---
scheduled am medicaiton given, see emar. fresh water provided. security remains in room.
--- NOTE | 2021-10-29 06:30 | NUR ---
increased restlessness and some agitation noted. discussed with charge master analystrae vila, nathan haldol given early see emar. security remains with pt.
--- NOTE | 2021-10-29 07:16 | NUR ---
pt IS BECOMING MORE AGITATED. SECURITY AND MOE EISENBERG IN ROOM WITH pt. PER STAFF, pt DIGGING THROUGH GARBAGE, YELLING, AND BECOMING MORE PHYSICALLY AGITATED WITH STAFF. pt THEN WANTING TO WALK IN HALLWAY, ASSISTED BACK TO BED. VARIOUS DISTRACTION TECHNIQUES UNSUCCESSFUL, DISCUSSED WITH MANAGER ZONEMOE MEZA. 5MG IM HALDOL GIVEN, SEE EMAR. JEREMY ARCE ALSO AT BEDSIDE, REPORT GIVEN. SECURITY REMAINS WITH pt.
--- NOTE | 2021-10-29 09:08 | NUR ---
BED ALARM SOUNDING, pt UP TO SIDE OF BED. LAYING BACK DOWN INSTRUCTED. WARM BLANKET PROVIDED. BED ALARM ON.
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
--- NOTE | 2021-10-29 10:53 | NUR ---
PT. IS SLEEPING AT THIS TIME. RESPIRATIONS ARE EVEN AND UNLABORED. BED ALARM ON AND CURTAIN OPEN.
--- NOTE | 2021-10-29 11:11 | NUR ---
BED ALARM SOUNDING. 1PA TO RESTROOM. ATTEMPT TO USE WALKER, pt BENDING DOWN TO TOUCH WEELS, 1PA WITH HOLDING pt'S HAND TO RESTROOM. INCONTINENT OF URINE AND STOOL. pt CLEANED AND ATTENDS CHANGED. pt BACK IN BED. BED ALARM ON. SECURITY IN ROOM TO MONITOR pt.
--- NOTE | 2021-10-29 11:12 | NUR ---
PT. IS UP WITH CHARGE NURSE TO THE BATHROOM. ASSISTED BACK TO BED. HE IS PLEASANT BUT SOMEWHAT RESTLESS. HE STATES "I NEED TO GET UP AND MOW THE LAWN". PT. PROVIDED WITH WARM BLANKETS AND IS LYING IN BED. LEFT WITH CURTAIN OPEN, ALARM ON.
--- NOTE | 2021-10-29 11:49 | NUR ---
PT. IS RESTLESS AND WALKING AROUND THE ROOM. INCONTINENT VOID CLEANED OFF THE FLOOR. SECURITY IN THE ROOM FOR A 1-ON-1.
--- NOTE | 2021-10-29 12:05 | NUR ---
THIS NURSE ASSISTED PT. WITH AMBULATING WITH FWW AROUND THE UNIT. TOLERATED WELL. LEFT RESTING WITH SECURITY IN THE ROOM.
--- NOTE | 2021-10-29 12:47 | NUR ---
Called and spoke with Katie from [facility]. She may or may not have a bed open at her two homes. She will call and confirm if person on her wait list is still moving in. She will call me back.
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
--- NOTE | 2021-10-29 13:36 | NUR ---
PT. RESTLESS AND LIMPING. ADMIN TRAMADOL. PT. UNABLE TO RATE PAIN. AMBULATING WITH FWW AROUND THE UNIT WITH SECURITY.
--- NOTE | 2021-10-29 13:38 | NUR ---
Called and scanned Face sheet, H&P, progress notes for this week, covid test, med list, and PT/OT notes to [facility] in [place] ([email or web address]), [facility] in [place] ([email or web address] and fax [phone]), and to fax to [facility] in [place], or. I also called [facility] in [place], they will have the provider call me back. [facility] [phone]. I received a return call from [facility] and she will visit and evaluate Valentin on Tuesday.
--- NOTE | 2021-10-29 14:03 | NUR ---
pt AGGRESSIVE TOWARD SECURITY. THIS RN IN ROOM. ATTENDS WITH SMEAR OF LIQUID BM. ATTENDS CHANGED. 1PA TO BED. PRN TYLENOL ADMINISTERED AT THIS TIME. pt CONTINUES TO LIMP WITH AMBULATION. pt NOW UP TO CHAIR WITH 1PA. CHAIR ALARM ON.
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
--- NOTE | 2021-10-29 14:42 | NUR ---
PATIENT IS ON A REGULAR DIET WITH FINGER FOODS AND FOODS TO COME CUT UP. HE IS EATING DECENTLY, BUT DOESN'T ALWAYS EAT BREAKFAST 100%. HE CAN HAVE SNACKS DESIRED. NO NUTRITION INTERVENTION NEEDED AT THIS TIME. WILL CONTINUE TO MONITOR.
--- NOTE | 2021-10-29 15:30 | NUR ---
Received a call from [employer] and Florentin will visit pt tomorrow at 1530 to evaluate for placement.
--- NOTE | 2021-10-29 17:37 | NUR ---
PT. ASSISTED TO CHAIR FOR DINNER. HE IS FEEDING HIMSELF. PLEASANTLY CONFUSED AT THIS TIME. CHAIR ALARM ON.
--- NOTE | 2021-10-29 18:47 | NUR ---
UPDATED ON RT. HAND EDEMA. TELEPHONE ORDERED TO DC FLUIDS AND REMOVE VICKI IV.
--- NOTE | 2021-10-29 19:45 | NUR ---
1944 - SECURITY HAD TO LEAVE PT, IN TO SIT WITH PT, PT IS ACTIVE, GETTING OUT OF BED, 1999 - WALKED WITH PT AROUND HALLWAY FOR TWO LAPS, ATTEMPTING TO GET PT TO LAY DOWN IN BED, 2004 - PT WANDERS AROUND ROOM, SITS ON THE EGDE OF THE BED, UP AGAIN, 2014 - PT TRYING TO GO FISHING, SEES FISH IN THE [place], PT WALKS ANTOHER LAP, 2029 - PT CONVICED TO HEAD BACK TO RM, PT AGREES TO LET THIS BRANCH MANAGER GET VITALS 2044 - PT UP IN ROOM, GOT PT TO LAY IN BED SO RN COULD PASS MEDS,
--- NOTE | 2021-10-29 19:46 | NUR ---
BEDSIDE REPORT, PT OUT AMBULTING IN HALLS WITH SECURITY.
--- NOTE | 2021-10-29 20:46 | NUR ---
pt restless, hs meds past, he has been limping and grimacing with ambulating on left hip, pain medications given prn for 4/10 smile scale pain assessment
--- NOTE | 2021-10-29 21:00 | NUR ---
2099 - PT IS OOB, SITTING, KEEPING PT COMPANY SO PT IS NOT UP TO THE HALLWAY, CHATTING WITH PT, PT THEN WANDERS THE ROOM, LOOKING FOR SHOES, KEYS ECT, TRYING TO KEEP PT REDIRECTED/OCCUPUIED, 2124 - PT NOW LEAVING THE ROOM, NOT WANTING TO LAY DOWN AT THIS TIME, LET PT WALK IN HALLWAY THEN BACK TO ROOM, PT ENCURAGED TO LAY DOWN, NOT INTRESTED AT THIS TIME, WALKS AROUND ROOM, 2139 - PT IS OUT TO THE HALLWAY ONCE MORE, NOT STAYING IN THE ROOM, PT ENCURAGED TO COME BACK TO THE ROOM AND LAY DOWN TO GIVE HIS HIP A REST, PT MENTIONS LOOKING FOR A TOILET BUT CHANGES MIND OFTEN, PT ENCUREAGED TO RETURN TO ROOM TO USE THE TOILET,
--- NOTE | 2021-10-29 21:23 | NUR ---
PT IS CURRENTLY A 1:1, NOT COMBATIVE, HE IS DIFFICULT TO REDIRECT AT THIS TIME. JOSH COPPOLA WITH PT.
--- NOTE | 2021-10-29 22:00 | NUR ---
2200 - PT ACCEPTED IDEA TO USE THE TOILET BEFORE BED, PT GOES TO THE BATHROOM, NEW ATTENDS IN PLACE, INCONT OF URINE AND BM, NOTED BY THIS ADJUNCT PSYCHOLOGY PROFESSOR VIA SMELL, 2210 - PT IS CLEANED UP, FIDDLES WITH WET WIPES AND PANTS, FINAILLY UP OFF THE TOILET, 221 - PT IS GETTING INTO BED, TUCKED IN, PT APPERES TO BE READY TO FALL ASLEEP, BUT STILL CHATTY, THIS ADJUNCT PSYCHOLOGY PROFESSOR REMAINS WITH PT AT BEDSIDE, 223 - SECURITY IS BACK TO ASSIST WITH PT AT THIS TIME, BED ALARM IS SET, NO FURTHER NEEDS AT THIS TIME
--- NOTE | 2021-10-29 22:07 | NUR ---
PT RESTLESS, REMAINS 1:1 IN ROOM.
--- NOTE | 2021-10-29 23:47 | NUR ---
PT INTERMITTENLY SLEEPING, SECURITY 1:1 AT THIS TIME.
--- NOTE | 2021-10-30 02:21 | NUR ---
PT RESTING IN BED EYES CLOSED RR EVEN, SECURITY AT BEDSIDE. NO DISTRESS NOTED
--- NOTE | 2021-10-30 03:50 | NUR ---
assisting security with redirecting pt to bed, pt is wandering rm, attempting to leave rm for the hallway, pt up to the toilet, heavy incont of urine, new attends in place, pt now has to have a bm , cleaned up, sitting on edge of bed, new pants in place, rn now in to provide pain pill
--- NOTE | 2021-10-30 04:08 | NUR ---
PT ADMINISTERED RISPERADOL 0.5 PRN FOR AGGITATION, HE IS UP AND TRY TO PULL CABLES OUT OF THE WALL AND OFF THE V/S MONITOR, SECURITY TRAVIS IN ROOM TRYING TO REDIRECT, PT NOT COOPERATING. PT INITIALLY REFUSED TO TAKE MEDICATION FROM THIS RN, THIS RN ASKED GINGER RN TO OFFER THE MEDICATIONS, PT ACCEPTED, HE IS ALSO ADMINISTERED ULTRAM AND TYLENOL HE IS HAVING DIFFICULTING AMBULATING AND GRIMACING WITH AMBULATION. PT ALSO PULLING ITEMS/EQUIPMENT OUT OF ROOM CLOSET.
--- NOTE | 2021-10-30 05:10 | NUR ---
PT RESTING IN BED, SNORING, NO DISTRESS NOTED AT THIS TIME.
--- NOTE | 2021-10-30 05:46 | NUR ---
PT HAS BEEN VERY ACTIVE OVER SHIFT, HE HAS BEEN DIFFICULT TO REDIRECT. HAS BEEN 1:1 MOST OF SHIFT WITH ANAT MORENO AND SECURITY ROBLES, HE HAS AMBULATED MULTIPLE LAPS ON MED/SURG UNIT, HE HAS TRIED TO PULL ALL THE EQUIPMENT OUT OF THE CLOSET AND PULL ELECTRICAL LINES OUT OF [place]. HE WAS GIVEN PRN PAIN MEDICATIONS TWICE THIS SHIFT, AND RISPERIDOL PRN ONCE THIS AM.
--- NOTE | 2021-10-30 06:00 | NUR ---
PT HAS BEEN VERY ACTIVE OVER SHIFT, HE HAS BEEN DIFFICULT TO REDIRECT. HAS BEEN 1:1 MOST OF SHIFT WITH NAAT MORENO AND SECURITY ROBLES, HE HAS AMBULATED MULTIPLE LAPS ON MED/SURG UNIT, HE HAS TRIED TO PULL ALL THE EQUIPMENT OUT OF THE CLOSET AND PULL ELECTRICAL LINES OUT OF [place]. HE WAS GIVEN PRN PAIN MEDICATIONS TWICE THIS SHIFT, AND RISPERIDOL PRN ONCE THIS AM.
--- NOTE | 2021-10-30 09:30 | NUR ---
REPORT RECEIEVED FROM NIGHT RN AND PT. CARE RESUMED. RN IN THE ROOM FOR 1-ON-1. PT IS PLEASANT BUT RESTLESS. LEFT HIP SURG SITE IS DRY WITH NO SIGNS OF INFECTION AND FELIPA INTACT. +1 EDEMA AT THE SITE. PT. IS ORIENTED TO SELF. DISCUSSED SAFETY, POC AND DIET. LEFT RESTING WITH ALARM ON AND CURTAIN OPEN IN VIEW OF NURSES STATION.
--- NOTE | 2021-10-30 09:49 | NUR ---
PER AM MEETING NO CHANGES IN DISCHARGE PLAN AT THIS TIME. CASE MANAGEMENT TO CONTINUE WORKING WITH [facility] TO FIND SUITABLE CARE FACILITY FOR DISCHARGE. PATIENT TO BE EVALUATED BY TWO CARE FACILITIES TODAY AND Tuesday10/31/21.
--- NOTE | 2021-10-30 10:35 | NUR ---
WAS GETTING READY TO GO IN AND GIVE PATIENT SHOWER BUT PATIENT WAS ASLEEP ANAT THOMAS TRY TO WAKE HIM TO SEE IF HE WAS AGREEABLE TO SHOWER. PATIENT MUMBLE AND WENT BACK TO SLEEP UNABLE TO ROUSE PATIENT. NO SHOWER TODAY PER RN. CLAUDE. (NEEDS TO SLEEP HASN'T SLEPT FOR 3 DAYS)
--- NOTE | 2021-10-30 11:15 | NUR ---
PT APPEARS TO BE IN BETTER MOOD TODAY. SITTING IN CHAIR, RN AT HIS SIDE. PT SAID HE DIDN'T SLEEP WELL LAST NIGHT,AND THAT HE WAS READY TO PUT HIS SOCKS ON NOW. RN ASSISTED. GAVE BLESSING, WILL FOLLOW
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
--- NOTE | 2021-10-30 16:20 | NUR ---
BAMBI FROM [employer] HERE TO ASSESS PATIENT FOR PLACEMENT. PATIENT SITTING UP IN CHAIR FOR EVALUATION. FURTHER QUESTIONS AND DETAIL GIVEN REGARDING THE PATIENTS CARE AND BEHAVIORS GIVEN TO BAMBI BY THIS RN AND MS RN'S. PER BAMBI THEY WILL SUBMIT APPLICATION TO THE [facility] FOR PLACEMENT. BAMBI STATES THAT THE PATIENT WOULD REQUIRE A PRIVATE ROOM DUE TO HIS PAST BEHAVIORS AND THEY WILL NOT HAVE ONE OPEN FOR A FEW WEEKS. PER BAMBI THEY WILL CONTACT CASE MANAGEMENT ON TUESDAY WITH A PLACEMENT DETERMINATION.
--- NOTE | 2021-10-30 18:00 | NUR ---
PT SITTING IN CHAIR WATCHING TV AND FINISHING DINNER AFTER AMBULATING ONE LOOP AROUND NURSES STATION. PT SHOWS NO SIGNS OF AGITATION OR THE PREVIOUS COMBATIVNESS. CALL LIGHT WITHIN REACH, NO FURTHER NEEDS AT THIS TIME
--- NOTE | 2021-10-30 19:59 | NUR ---
BEDSIDE REPORT PT MICHAEL WOO AT THIS TIME
--- NOTE | 2021-10-30 21:10 | NUR ---
IN TO ASSIST PT OUT OF CHAIR, UP TO THE TOILET, VOID AND BM, ATTENDS CDI, BACK TO THE CHAIR, VITALS DONE, RN IN FOR PM MEDS, PT SETUP WITH DINNER AFTER PT MENTIONS BEING HUNGRY, JUICE AND WATER PROVIDED, CHAIR ALARM IS SET, PT IN VIEW OF RN STATION
--- NOTE | 2021-10-30 21:14 | NUR ---
PT BACK FROM BATHROOM UP IN RECLINER WITH DINNER TRAY, AND CLEAR ENSURE, WATER AND MILK. PT IS CURRENTLY COOPERATIVE WITH CARE.
--- NOTE | 2021-10-31 02:00 | NUR ---
PT REPOSITIONING IN RECLINER, NO DISTRESS NOTED.
--- NOTE | 2021-10-31 03:50 | NUR ---
PT IS AWAKE, WANTS TO PUT LEFT-OVER FOOD ON THE FLOOR FOR THE DOG TO EAT, PT WAS WALKING TO THE BATHROOM, CHANGES MIND, GETS INTO THE BED, WANTS TO REST, BED ALARM IS SET
--- NOTE | 2021-10-31 03:57 | NUR ---
PT UP AMBULATED TO BED, COOPERATIVE WITH CARE. NO COMBATIVE BEHAVIOR.
--- NOTE | 2021-10-31 03:59 | NUR ---
PT HAS BEEN UP IN THE RECLINER MOST OF SHIFT, HE REPOSITIONED HIMSELF FREQUENTLY, HE HAD DINNER HEATED AND SET UP FOR HIM AT START OF SHIFT. HE HAS HAD INCONT. OF URINE, HE VOIDED IN BATHROOM AND BM AT START OF SHIFT. HE STARTED TO STAND FROM RECLINER THIS AM 0400, ANAT JOSH INTO ASSIST PT TO BED, BED ALARM SET FOR PT SAFETY. PT COOPERATIVE WITH CARE OVER SHIFT.
--- NOTE | 2021-10-31 04:29 | NUR ---
PT RESTING IN BED NOTED TO BE SNORING AT THIS TIME
--- NOTE | 2021-10-31 05:17 | NUR ---
PATIENT ASSISTED TO THE RESTROOM A 1PA. PATIENT WAS FABRICE TO VOID. PATIENT IS BACK IN BED RESTING. PATIENTS BED ALARM IS ON FOR SAFETY. CALL LIGHT IN REACH.
--- NOTE | 2021-10-31 06:55 | NUR ---
PT RESTING IN BED, DEPENDS CHANGED, SMALL INCONT. OF URINE. V/S TAKEN, STABLE. HE DID OPEN HIS EYES AND ASSISTED TO ROLE IN BED FOR CHANGING OF DEPENDS.
--- NOTE | 2021-10-31 06:57 | NUR ---
PT TOO DROWSY TO GIVE 0700 PROTONIX AT THIS TIME.
--- NOTE | 2021-10-31 07:41 | NUR ---
Patient resting in bed, eyes closed, respirations even and non labored. Patient has no distress. Bed alarm intact.
--- NOTE | 2021-10-31 08:50 | NUR ---
Tylenol 500mg po and ultram 50mg po admin for left hip pain. Patient sitting up in chair watching tv, no distress. Fresh juice provided, pt reports he tolerated breakfast well. Patient encouraged to call if he has needs. Close to RN station, chair alarm intact.
--- NOTE | 2021-10-31 10:18 | NUR ---
Patient taking a nap at this time in his bed, no distress. Bed alarm intact. Bed alarm intact. Close to RN station.
--- NOTE | 2021-10-31 11:24 | NUR ---
Patient in bed resting, eyes closed, respirations even and non labored. No distress noted. Patient close to RN station. Bed alarm intact.
--- NOTE | 2021-10-31 12:40 | NUR ---
Patient walked in hallway with this RN, tolerated well-SBA with walker.
--- NOTE | 2021-10-31 13:00 | NUR ---
Tylenol 500mg po and ultram 50mg po admin for left hip pain.
--- NOTE | 2021-10-31 13:01 | NUR ---
Represenative from [facility] here to interview patient for possible placement.
--- NOTE | 2021-10-31 19:25 | NUR ---
REPORT RECEIVED FROM DAY SHIFT RN. PT SITTING IN RECLINER. ORIENTED TO SELF. DENIES NEEDS. WHITE BOARD UPDATED. CALL LIGHT IN REACH. PT IN VIEW OF NURSES STATION.
--- NOTE | 2021-10-31 19:41 | NUR ---
CHAIR ALARM SOUNDING. IN TO ASSIST PT TO BR TO VOID AND CHANGE BRIEF DUE TO INCONTINENCE. STAFF ASSIST WITH CLAY CARE. BACK TO BED. PT COOPERATIVE WITH CARES. BED ALARM ON. CALL LIGHT IN REACH.
--- NOTE | 2021-10-31 19:55 | NUR ---
BED ALARM SOUNDING. PT CONFUSED. IN TO REORIENT AND ASSIST TO REPOSITION. FRESH WATER AND WARM BLANKET PROVIDED. PT BACK IN BED. BED ALARM ON.
--- NOTE | 2021-10-31 21:03 | NUR ---
Patient feels the need to stand out of bed sometimes and redirection has been helpful. Patient said he does not plan to get sleep tonight.
--- NOTE | 2021-10-31 21:47 | NUR ---
EVENING ASSESSMENT COMPLETE. SCHEDULED MEDS ADMINISTERED PER EMAR. PT ORIENTED TO SELF. PT DENIES PAIN OR NAUSEA. FELIPA INTACT ON LEFT HIP. NO REDNESS OR DRAINAGE NOTED. GENERALIZED EDEMA NOTED IN BLE/LEFT HIP. PT IN BED AT THIS TIME. ASSISTED TO REPOSITION. BED ALARM IN PLACE. PT IN VIEW OF NURSES STATION.
--- NOTE | 2021-10-31 23:34 | NUR ---
PT RESTING IN BED WITH EYES CLOSED. RESPIRATIONS EVEN. BED ALARM ON. PT IN VIEW OF NURSES STATION.
--- NOTE | 2021-11-01 00:14 | NUR ---
BED ALARM SOUNDING. IN ROOM TO ASSIST PT TO BR TO VOID LARGE AMOUNT. AT SINK TO WASH HANDS. BACK TO BED, EL WELL. NO FURTHER NEEDS. BED ALARM ON.
--- NOTE | 2021-11-01 00:39 | NUR ---
BED ALARM SOUNDING. PT UP TO BR WITH SBA TO VOID. BRIEF CHANGED DUE TO INCONTINENCT. STAFF ASSIST WITH CLAY CARE. AT SINK TO WASH HANDS. BACK TO BED, EL WELL. PT PLEASANT AND COOPERATIVE WITH CARES. BED ALARM ON.
--- NOTE | 2021-11-01 01:54 | NUR ---
PT RESTING IN BED WITH EYES CLOSED. RESPIRATIONS EVEN. BED ALARM IN PLACE.
--- NOTE | 2021-11-01 03:14 | NUR ---
PT NOTED TO BE STIRRING IN BED. IN ROOM TO ASSIST PT TO BR WITH SBA. GAIT WEAK BUT STEADY. PT REPORTS PAIN IN LLE WITH AMBULATION. AT SINK TO WASH HANDS. BACK TO BED. PRN FOR PAIN ADMINISTERED PER EMAR. ASSISTED PT TO REPOSITION IN BED. PT PLEASANT AND COOPERATIVE WITH CARES. BED ALARM IN PLACE. CALL LIGHT IN REACH.
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
--- NOTE | 2021-11-01 04:54 | NUR ---
PT CONTINUES WITH INCREASED CONFUSION AND RESTLESNESS WANDERING ROOM WITH HAND SEWER SHOES SBA. NO COMBATIVE BEHAVIOR. PT ALLOWED TO AMB IN ROOM WITH SBA. PT TOILETED BEFORE RETURNING TO BED WITH NO RESULTS. PT BACK IN BED AT THIS TIME WITH EYES CLOSED. BED ALARM ON. PT IN VIEW OF NURSES STATION.
--- NOTE | 2021-11-01 06:40 | NUR ---
BED ALARM SOUNDING. PT STATES HE NEEDS TO GET UP TO GO TO WORK. PT EASILY REDIRECTABLE AND BACK IN BED AT THIS TIME RESTING WITH EYES CLOSED. BED ALARM ON.
--- NOTE | 2021-11-01 07:24 | NUR ---
Patient awake, up to restroom for bm then to chair. Patient denies needs. Chair alarm intact. Personal supplies and call light within reach.
--- NOTE | 2021-11-01 07:37 | NUR ---
Ultram 50mg and tylenol 500mg po admin for left hip pain.
--- NOTE | 2021-11-01 09:28 | NUR ---
Patient ambulated in hallway x3 laps, tolerted well-SBA with FWW.
--- NOTE | 2021-11-01 13:00 | NUR ---
Tylenol 500mg and ultram 50mg po admin for left hip pain. Patient up in chair watching tv at this time. Patient denies needs. Close to RN station.
--- NOTE | 2021-11-01 16:46 | NUR ---
Patient ambulated in hallway with staff, tolerated well-SBA with FWW.
--- NOTE | 2021-11-01 17:00 | NUR ---
rISPIRIDONE 0.5MG PO ADMIN FOR AGITATION.
--- NOTE | 2021-11-01 18:35 | NUR ---
Patient up to restroom to void, brief changed for incontinence. Patient assisted to bed at this time. No current needs. Personal supplies and call light within reach.
--- NOTE | 2021-11-01 19:29 | NUR ---
REPORT RECEIVED FROM DAY SHIFT RN. PT SITTING AWAKE IN RECLINER. CHAIR ALARM IN PLACE. PT DENIES NEEDS. WHITE BOARD UPDATED. CALL LIGHT IN REACH.
--- NOTE | 2021-11-01 21:06 | NUR ---
PT WANDERING ROOM WITH SBA FROM RN OFFICE. PT NOTED TO BE GRIMACING WITH AMB. PRN FOR PAIN ADMINISTERED PER EMAR. PT NOT REDIRECTABLE AT THIS TIME. NO COMBATIVE BEHAVIORS NOTED.
--- NOTE | 2021-11-01 22:10 | NUR ---
GAS TREATER IN ROOM 1:1 WITH PT. EVENING ASSESSMENT COMPLETE. SCHEDULED MEDS ADMINISTERD PER EMAR. PT ORIENTED TO SELF ONLY. SBA TO BR TO VOID. CLEAN BRIEF PLACED. PT BACK TO BED. FELIPA TO LEFT HIP INTACT. NO REDNESS OR DRAINAGE NOTED. PT DENIES PAIN OR NAUSEA. ENSURE AND GRANOLA BAR PROVIDED. HOB ELEVATED. GAS TREATER BACK IN ROOM FOR 1:1.
--- NOTE | 2021-11-01 23:12 | NUR ---
CUSTOMER SERVICES SUPERVISOR 1:1. PT CONTINUES TO TRY TO GET OUT OF BED. NON REDIRECTABLE. AGGRESSIVE AT TIMES. PT UP TO BR WITH THIS RN TO VOID SMALL AMOUNT WITH SBA. AT SINK TO WASH HANDS. BACK TO BED. ASSISTED TO REPOSITION FOR COMFORT. BED ALARM ON.
--- NOTE | 2021-11-01 23:43 | NUR ---
BED ALARM SOUNDING. PT WITH LEGS OVER SIDE OF BED. RN BURN IN ROOM TO ASSIST PT TO REPOSITION. BED ALARM BACK ON.
--- NOTE | 2021-11-02 01:30 | NUR ---
PT RESTING IN BED AT THIS TIME. EYES CLOSED. RESPIRATIONS EVEN. BED ALARM ON.
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
--- NOTE | 2021-11-02 03:24 | NUR ---
MULTIPLE ATTEMPTS MADE AT REDIRECTING AND DEESCALATING SITUATION WITHOUT SUCCESS. PT CONTINUES TO BE AGITATED AND COMBATIVE TO STAFF. PRN FOR AGITATION ADMINISTERED PER EMAR. SECURITY REMAINS 1:1 WITH PT.
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
--- NOTE | 2021-11-02 04:53 | NUR ---
Patient sat on the side of the bed then stood to use the urnal. The patient held the urnal but missed. The patient was cleaned up and is now lying in bed to see if he can get some more rest this morning. The floor was also cleaned. The patient is on a bed alarm. The patient was a 1-2 person SBA to make sure he was steady on his feet while using the urnal.
--- NOTE | 2021-11-02 04:57 | NUR ---
PT RESTING IN BED WITH EYES CLOSED AT THIS TIME. RESPIRATIONS EVEN. BED ALARM FOR SAFETY. PT IN VIEW OF NURSES STATION.
--- NOTE | 2021-11-02 05:20 | NUR ---
GAS ANALYST TO ROOM FOR BED ALARM SOUNDING. PT ATTEMPTING TO GET OUT OF BED. POINTS TO THE BATHROOM. PT UP TO BATHROOM WITH WEALTH MANAGEMENT DIRECTOR ASSIST.
--- NOTE | 2021-11-02 05:47 | NUR ---
PT AMB IN [place] WITH FINANCIAL ANALYST ACCOUNTANT. PT AMB WITH A LIMP, TILE INSPECTOR ASKED IF PT IN PAIN. PT STATES "IT'S A LITTLE SORE". BACK TO ROOM. ASSISTED TO BED. PT COOPERATIVE. PRN FOR PAIN ADMINISTERED PER EMAR. PT REMAINS IN LYING POSITION. BED ALARM FOR SAFETY. FINANCIAL ANALYST ACCOUNTANT IN ROOM FOR 1:1.
--- NOTE | 2021-11-02 05:52 | NUR ---
Patient is in bed. Patient is persistant to get up out of bed and try to wander around the room. Assistance has been provided to make sure patient transfers safely. Vitals are complete. I&Os are complete. Patient talks to hospital staff as if they're his staff from a grocery store and said that the place he's staying in isn't a hospital, "It's a grocery store".
--- NOTE | 2021-11-02 08:50 | NUR ---
RECVD CALL FROM JENN AT [facility]. SHE STATES THAT SHE HAS SPOKE WITH JAKUB CAAL THIS AM AND SHE HAS ACCEPTED THE PATIENT FOR PLACEMENT. PER JENN THEY HAVE CONTACTED THE PATIENT JACQUELINE REGARDING A BED FOR THE PATIENT AT THE [facility]. PER JENN ALANISNIE DID NOT HAVE BED AVAILABLE, JAKUB ABLE TO PROVIDE BED FROM ANOTHER [facility] IN THE NEXT FEW DAYS. RETURNED CALL TO MARIE BARAJAS REGARDING NEED FOR PATIENT TO HAVE COVID RETEST PRIOR TO PLACEMENT AND IF ORDERS NEED TO BE FAXED TO [facility]. WILL AWAIT A CALL FROM JENN.
--- NOTE | 2021-11-02 09:19 | NUR ---
PT REMAINS LAYING IN BED WITH EYES CLOSED. BED ALARMS ON.
--- NOTE | 2021-11-02 10:22 | NUR ---
ADMINISTERED MORNING MEDS WO DIFFICULTY. PT SITTING UP IN CHAIR AFTER SHOWERING AND EATING BREAKFAST.
--- NOTE | 2021-11-02 10:30 | NUR ---
PT AWAKE AND UP TO BATHROOM FOR A SHOWER WITH FWW. PT INDEPENDENT WITH VERBAL CUES IN THE SHOWER. PT INDEPENDENT WITH ORAL CARE. LINEN CHANGED. PT UP IN CHAIR EATING BREAKFAST. NO FURTHER NEEDS AT THIS TIME
--- NOTE | 2021-11-02 11:11 | NUR ---
PT WALKED ONE SMALL LAP AROUND NURSES STATION. PT BACK IN CHAIR IN THE ROOM WITH CHAIR ALARM ON.
--- NOTE | 2021-11-02 12:30 | NUR ---
PT AWAKE AND ATE ALL OF LUNCH ON THE COUCH IN PT ROOM. PT IS NOW ASLEEP IN BED. BED ALARM ON. NO FURTHER NEEDS AT THIS TIME.
--- NOTE | 2021-11-02 12:59 | NUR ---
SPOKE WITH JAKUB CAAL FROM [facility] , SHE HAS ACCEPTED THE PATIENT FOR PLACEMENT. JAKUB STATES SHE IS WORKING WITH THE PATIENTS FAMILY TO ASSIST IN TRANSPORT OF A BED FOR THE PATIENT. JAKUB STATES SHE WOULD LIKE TO HAVE PATIENT TRANSPORTED BY TOMORROW OR 11/04/21. PATIENT WILL NEED COVID SWAB PRIOR TO DISCHARGE. WRITTEN ORDER TO BE FAXED TO [phone] WHEN AVAILABLE. CASE MANAGEMENT WILL CONTINUE TO BE IN CONTACT WITH JENN FROM [facility] AND JAKUB.
--- NOTE | 2021-11-02 13:18 | NUR ---
PT UP AMBULATING IN HALLWAY WITH ANAT EASTON, USING FWW. GAVE ENCOURAGEMENT TO PT, HE SAID HE WAS TRYING. WILL FOLLOW
--- NOTE | 2021-11-02 13:37 | NUR ---
PT IN BED AFTER REQUESTING A NAP.
--- NOTE | 2021-11-02 14:10 | NUR ---
PATIENT IN BED RESTING WITH EYES CLOSED. MOE BAEZ SAID TO NOW WAKE PATIENT UP FOR VITALS. CALL LIGHT IN REACH. BED ALARM ON.
--- NOTE | 2021-11-02 16:30 | NUR ---
PT CONTINUES TO REST WITH HIS EYES CLOSED. BED ALARM ON.
[2021-11-02] MEDS ORDERED: DONEPEZIL HCL5 MG PO (17:13)
[2021-11-02] MEDS ORDERED: ASPIRIN EC325 MG PO (17:14)
[2021-11-02] MEDS ORDERED: METOPROLOL TART25 MG PO (17:14)
[2021-11-02] MEDS ORDERED: DIVALPROEX SOD500 MG PO (17:15)
[2021-11-02] MEDS ORDERED: TRAMADOL HCL50 MG PO (17:17)
[2021-11-02] MEDS ORDERED: SERTRALINE HCL50 MG PO (17:18)
[2021-11-02] MEDS ORDERED: MELATONIN3 MG PO (17:18)
[2021-11-02] MEDS ORDERED: OLANZAPINE10 MG PO (17:19)
[2021-11-02] MEDS ORDERED: RISPERIDONE1 MG PO (17:19)
[2021-11-02] MEDS ORDERED: RISPERIDONE0.25 MG PO (17:20)
[2021-11-02] MEDS ORDERED: SENNA LAX8.6 MG PO (17:21)
[2021-11-02] MEDS ORDERED: PANTOPRAZOLE SO40 MG PO (17:24)
--- NOTE | 2021-11-02 17:27 | NUR ---
WOKE PT FOR DINNER AND MEDS. PT PLEASANT AND UP TO CHAIR AND RESTROOM. PT HAD A BM AND WALKED TO BATHROOM, ALTHOUGH LIMPING.
--- NOTE | 2021-11-02 17:39 | NUR ---
PT UP OUT OF CHAIR. ASSISTED BACK TO BED. PT UNSURE OF WHAT HE SHOULD BE DOING RIGHT NOW. ASSURED HIM HE IS "OFF DUTY"
--- NOTE | 2021-11-02 18:01 | NUR ---
PATIENT IN BED WATCHING TV. VITALS AND I&O'S CHARTED. PATIENT NOW GETTING UP TO AMBULATE IN HALLWAYS WITH RN, 1PA FWW. NO FURTHER NEEDS AT THIS TIME.
--- NOTE | 2021-11-02 18:42 | NUR ---
PT AMBULATED IN [place] WITH THIS RN AND THEN ANAT QUINTERO. TOLERATED WELL AND WORE HIS SHOES FROM THE CUPBOARD.
--- NOTE | 2021-11-02 19:33 | NUR ---
REPORT RECEIVED FROM DAY SHIFT RN. PT SITTING IN RECLINER AWAKE. ORIENTED TO SELF. CHAIR ALARM IN PLACE. DENIES NEEDS. WHITE BOARD UPDATED. PT IN VIEW OF NURSES STATION.
--- NOTE | 2021-11-02 22:00 | NUR ---
SBA TO BR TO VOID. BRIEF CHANGED DUE TO INCONTINENCE. CLAY CARE DONE. PT AT SINK TO WASH HANDS. BACK TO BED. PT LIMPING AND REPORTS LEFT HIP "TENDER." EVENING ASSESSMENT COMPLETE. SCHEDULED MEDS ADMINISTERED PER EMAR. PRN ADMINISTERED FOR PAIN. PT ORIENTED TO SELF. PLEASANT AND COOPERATIVE WITH CARES. LEFT HIP WITH FELIPA INTACT. NO REDNESS OR DRAINAGE NOTED. BLE ELEVATED IN BED. BED ALARM FOR SAFETY. PT IN VIEW OF NURSES STATION.
--- NOTE | 2021-11-02 23:18 | NUR ---
PT RESTING IN BED WITH EYES CLOSED. RESPIRATIONS EVEN. BED ALARM ON.
--- NOTE | 2021-11-03 01:08 | NUR ---
PT RESTING IN BED WITH EYES CLOSED. RESPIRATIONS EVEN. SpO2 99% ON RA. HR 80'S. BED ALARM FOR SAFETY. PT IN VIEW OF NURSES STATION.
--- NOTE | 2021-11-03 03:45 | NUR ---
PT RESTING IN BED WITH EYES CLOSED. RESPIRATIONS EVEN. BED ALARM IN PLACE. PT IN VIEW OF NURSES STATION.
--- NOTE | 2021-11-03 05:16 | NUR ---
BED ALARM SOUNDING. PT UP TO USE BR TO VOID AND HAVE BM WITH SBA. PT ABLE TO DO OWN CLAY CARE. AT SINK TO WASH HANDS. BACK TO BED. PT LIMPING AND REPORTS LEFT FOOT PAIN. AGREED TO "TAKE A COUPLE TYLENOL." PRN FOR PAIN ADMINISTERED PER EMAR. VS AND I&O COMPLETE. PT PLEASANT AND COOPERATIVE DURING CARES. BED ALARM FOR SAFETY. PT IN VIEW OF NURSES STATION.
--- NOTE | 2021-11-03 08:30 | NUR ---
REPORT RECEIVED FROM NIGHT RN AND PT. CARE RESUMED. PT. IS SLEEPING AT THIS TIME. DUE TO PT.'S LACK OF SLEEP, ASSESSMENT AND MEDS. DEFERRED UNTIL AWAKE. BREATHING IS EVEN AND UNLABORED.
--- NOTE | 2021-11-03 09:10 | NUR ---
Received a message from [facility] requesting return call. Called and spoke with Zandra at [facility] and confirmed they had accepted this patient for placement. She states she has, they are awaiting a bed to be delivered from the brother today and can accept tomorrow. Called Wendy at [facility] and she wanted to know if we could hold this pt another week as they are going on vacation. Updated we have another [facility] which has accepted this pt for tomrrow.
--- NOTE | 2021-11-03 09:56 | NUR ---
PATIENT AWAKE AND UP TO BATHROOM, SBA FWW. CLAY CARE AND AM CARE DONE. NEW ATTENDS IN PLACE. PATIENT NO TO CHAIR FOR BREAKFAST, SBA FWW. CHAIR ALARM ON. CALL LIGHT IN REACH. NO FURTHER NEEDS AT THIS TIME.
--- NOTE | 2021-11-03 10:00 | NUR ---
PT. AWAKE AT THIS TIME. ALERT AND ORIENTED TO SELF.HE IS PLEASANT AND COOPERATIVE WITH CARE. LEFT HIM SURG. SITE IS DRY AND OPEN TO AIR. NO SIGNS OF INFECTION. STAPLE MISSING AT THE TOP OF SURG SITE. PT. DENIES PAIN. ASSISTED TO THE BATHROOM WITH FWW AND BREAKFAST. DISCUSSED MEDS AND SAFETY. LEFT RESTING WITH CALL LIGHT IN REACH.
--- NOTE | 2021-11-03 11:11 | NUR ---
PT. RESTING IN THE CHAIR AT THIS TIME WITH ALARM ON. HE DENIES PAIN OR FURTHER NEEDS. LEFT RESTING WITH CURTAIN OPEN IN VIEW OF NURSES STATION
--- NOTE | 2021-11-03 11:57 | NUR ---
PT. ASSISTED WITH LUNCH SET UP. HE IS PLEASANT AND DENIES PAIN OR BATHROOM AT THIS TIME. LEFT EATING IN CHAIR WITH ALARM ON AND CURTAIN OPEN.
--- NOTE | 2021-11-03 13:00 | NUR ---
3 attempts to contact [facility] secure transport. When I spoke with Zandra, she stated they could accept between 10 and 2 pm tomorrow.
--- NOTE | 2021-11-03 13:30 | NUR ---
PT SITTING IN CHAIR-TV ON AND EMPTY LUNCH TRAY IN FRONT OF HIM. SAID HE HAD ENOUGH LUNCH, ASKED ME A QUESTON: "HOW COME ALL MY CELL MATES KEEP LEAVING AND I AM STILL HERE"? HE SAID HE IS JUST TIRED OF HE SAME! VISITED WITH MOE ARCE, SHE WILL TAKE PT FOR A WALK TO HELP WITH HIS FEELINGS OF BOREDOM. WILL CONTINUE TO FOLLOW
--- NOTE | 2021-11-03 14:10 | NUR ---
THIS RN TOOK REPORT FROM MEO ARCE AND I WILL BE ASSUMING PATIENT'S CARE FOR THE REMAINDER OF THE SHIFT. PATIENT IS SITTING IN THE BEDSIDE ARMCHAIR WATCHING TV AND HAS NO CURRENT CARE NEEDS. CHAIR ALARM IS ON AND PATIENT CAN BE VISUALIZED IN HIS ROOM FROM THE NURSES STATION.
--- NOTE | 2021-11-03 14:20 | NUR ---
Received a phone message from [facility] transport returned call and was able to reach Brian. She states she will need to speak with her loan supervisor as more than likely they will need either an employee from [facility] or from the hospital to ride with the pt. They have safety locks, but no barrier between the front and back seat. They are attempting to find transport for tomorrow. They will give us a time when we have someone who can ride with pt. Called Corie Jimenez and Yolanda Lopez, one of our security personel can ride with this pt.
--- NOTE | 2021-11-03 14:41 | NUR ---
PATIENT SITTING IN CHAIR WATCHING TV AT THIS TIME. VITALS AND I&O'S CDONE BY VACUUM TESTER CANS. THIS TAXIMETER REPAIRER CHECKED IN ON PATIENT. CALL LIGHT IN REACH. CHAIR ALARM ON. NO FURTHER NEEDS AT THIS TIME.
--- NOTE | 2021-11-03 15:15 | NUR ---
I was able to reach [facility]. She states they are not able to send pt by secure transport as the facility he is going to is not a secure facility. Let her know this was approved by [facility] with [facility]. She states they called [facility] and their staff are at the front, but the door is not locked. MARTHA also needs a letter stating pt can be a harm to self and to other and he will also need to wear a mask. They are checking for transport at this time, transport will have child proof locks and our security will ride with this pt.
--- NOTE | 2021-11-03 15:21 | NUR ---
Spoke with Dr. Jeff, covid test ordered for placement to [facility] in [facility].
--- NOTE | 2021-11-03 15:24 | NUR ---
Faxed letter signed by Dr. Jeff to Brian at [facility],pt can be harmfull to self and others.
--- NOTE | 2021-11-03 16:34 | NUR ---
PATIENT UP WANTING TO GO FOR A WALK. THIS RN WALKED AROUND THE MED/SURG UNIT WITH PATIENT AND HIS FWW. PATIENT BACK IN HIS ROOM AND IN HIS BEDSIDE ARMCHAIR WATCHING SPORTS. PATIENT CHAIR ALARM IS ON AND PATIENT CAN BE SEEN FROM THE NURSES STATION DESK.
--- NOTE | 2021-11-03 17:15 | NUR ---
Return call from Brian at [facility]. They are unable to find any transport for this pt. All companies are down on drivers. She states we may need to do a 405T tomorrow and have pt go by EMS. We discussed this is around $1100. Asked if she could wait for a few minutes to go home and I will contact Corie Jimenez in [facility] and check if the hospital will pay the $40 for transport to [place] by taxi. She agrees. Confirmatin from Corie. Called [employer] and they state they will have their boss call and set it up. Updated Brian. She will keep the transport in place, just in case the taxi is unable to transport. I will call her in the am to let her know if I have been able to arrange transport.
--- NOTE | 2021-11-03 17:29 | NUR ---
PATIENT EATING HIS DINNER AND JUST TOOK HIS 1700 MED. PATIENT HAS NO CURRENT CARE NEEDS AND CHAIR ALARM IS ON. PATIENT CAN BE SEEN FROM THE NURSES STATION DESK.
--- NOTE | 2021-11-03 17:35 | NUR ---
Call from Jhony at [facility]. They have a motor coach driver to [place] to [place] tomorrow. Updated we will send our security with him due to his dementia. Cost will be $75 and they will return Jovanny our security to the hospital. Address and phone number given for Haydee Cedillo.
--- NOTE | 2021-11-03 17:45 | NUR ---
Notified Yolanda Lopez and she will schedule security to ride with this pt.
--- NOTE | 2021-11-03 18:01 | NUR ---
PATIENT SITTING UP IN CHAIR AT THIS TIME. VITALS AND I&O'S CHARTED. CHAIR ALARM ON. CALL LIGHT IN REACH. NO FURTHER NEEDS AT THIS TIME.
--- NOTE | 2021-11-03 19:20 | NUR ---
REPORT RECEIVED FROM MOE ROBERT. pt OUT OF ROOM AMBULATING IN HALLWAY WITH ASSIGNER TRAVIS AND BACK TUFTERMarybeth EDWARDSA, FWW IN USE.
--- NOTE | 2021-11-03 19:50 | NUR ---
pt SITTING AT NURSES STATION VISITING WITH NURSES, EATING COOKIE. pt COOPERATIVE, PLEASANT. ORIENTED TO SELF ONLY. REORIENTATION TO LOCATION PROVIDED.
--- NOTE | 2021-11-03 20:20 | NUR ---
pt UP IN CHAIR AT NURSES STATION FOR CLOSE MONITORING. ASSESSMENT COMPLETE. FELIPA IN PLACE LEFT HIP. SEPARATION AT TOP OF WOUND NOTED, UNCHANGED. INCISION CLEAN AND DRY. pt RATES PAIN 3/10 IN BACK. REFUSES PRN MEDICATION OFFERED. CSM INTACT. pt REMAINS 1:1 MONITORING FOR SAFETY.
--- NOTE | 2021-11-03 20:38 | NUR ---
SBA BACK TO BED. pt FOLLOWS INSTRUCTION APPROPRIATELY. RESTING IN BED WATCHING TV. VSS. PO MEDICATIONS ADMINISTERED. PRN PAIN MEDICATION ADMINISTERED FOR CHRONIC BACK PAIN, pt RATES PAIN 12/10. SBA TO RESTROOM. ATTENDS CHANGED, INCONTINENT OF URINE. UNMEASURED VOID IN TOILET. UP TO CHAIR. CHAIR ALARM ON.
--- NOTE | 2021-11-03 22:11 | NUR ---
SECURITY MONITORING pt 1:1. pt RESTING IN BED. BED ALARM ON. NO DISTRESS NOTED.
--- NOTE | 2021-11-03 23:35 | NUR ---
BED ALARM SOUNDING. SBA TO RESTROOM FOR VOID. INCONTINENT IN ATTENDS. ATTENDS CHANGED. pt BACK IN BED WITH BED ALARM ON. WARM BLANKETS PROVIDED.
--- NOTE | 2021-11-04 00:20 | NUR ---
BED ALARM SOUNDING. SBA TO RESTROOM FOR VOID. pt VOIDED IN TOILET, ATTENDS DRY. VOID DOWN SCRUB PANTS. PANTS REMOVED. SBA WITH FWW BACK TO BED, USING WALKER APPROPRIATELY. BED ALARM ON. LIGHTS OFF IN ROOM.
--- NOTE | 2021-11-04 00:57 | NUR ---
BED ALARM SOUNDING, pt ATTEMPT TO GET OUT OF BED "TO FIND THE GRIZZLY BEARS". BACK IN BED. WARM BLANKET PROVIDED. BED ALARM ON. REORIENTATION TO TIME PROVIDED. TV ON PER REQUEST.
--- NOTE | 2021-11-04 01:19 | NUR ---
pt SOUNDING ALARM. UP TO SIDE OF BED. REORIENTATION TO TIME OF DAY, LOCATION, EVENT, PLAN OF CARE PROVIDED. pt COOPERATIVE BACK IN BED. PRN PAIN MEDICATION ADMINISTERED pt NOTED TO LIMP WITH AMBULATION WHEN PREVIOUSLY OUT OF BED, SHIFTING LEGS, RUBBING LEFT KNEE WITH HAND. DRINKS OF WATER PROVIDED. pt NOW LYING DOWN. TV OFF IN ROOM. BED ALARM ON. SECURITY IN ROOM FOR CLOSE MONITORING.
--- NOTE | 2021-11-04 02:26 | NUR ---
pt RESTING IN BED WITH EYES CLOSED. MUSIC PLAYING. NO DISTRESS NOTED. BED ALARM ON. DIVISIONAL HUMAN RESOURCES DIRECTOR OUT OF ROOM AT THIS TIME.
--- NOTE | 2021-11-04 02:54 | NUR ---
BED ALARM SOUNDING. pt UP TO SIDE OF BED. ASSESSMENT COMPLETE. pt STATES "I FEEL REALLY GOOD, YOU SHOULD HAVE BEEN A NURSE". pt LYING BACK DOWN INSTRUCTED, REORIENTATION TO ALL PROVIDED. pt ONLY ORIENTED TO SELF. BED ALARM ON. DRINK OF WATER PROVIDED. SLEEP MUSIC PLAYING. pt CLOSING EYES AND LYING IN BED. RESPIRATIONS EQUAL AND UNLABORED.
--- NOTE | 2021-11-04 04:19 | NUR ---
BED ALARM SOUNDING. pt ASSISTED TO LIE BACK DOWN. WARM BLANKET PROVIDED. BED ALARM ON.
--- NOTE | 2021-11-04 04:53 | NUR ---
BED ALARM SOUNDING. 1PA WITH FWW TO RESTROOM. USING THE WALKER APPROPRIATELY. INCONTINENT IN ATTENDS AND ON FLOOR, UNMEASURED VOID IN TOILET. pt BACK IN BED. WARM BLANKET PROVIDED. VSS. BED ALARM ON.
--- NOTE | 2021-11-04 05:26 | NUR ---
ALARM SOUNDING. UP TO SIDE OF BED. BACK IN BED INSTRUCTED. CMT TURNED ON. pt WATCHING MUSIC VIDEOS. RN IN ROOM FOR A FEW MINUTES TO MONITOR. BED ALARM BACK ON. pt UPSET WITH ANAT WATERMAN, TELLS RN IT IS HIS SISTER ELEN "I JUST CAN'T HANDLE HER IN THE MORNINGS." RN EXPLAINS THAT SHE LEFT. RESTING IN BED AT THIS TIME. ENCOURAGED TO REST.
--- NOTE | 2021-11-04 05:56 | NUR ---
BED ALARM SOUNDING. UP TO CHAIR, SBA. RT IN ROOM FOR COVID SWAB. pt COOPERATIVE. CHAIR ALARM ON. JUICE PROVIDED. pt VERBALIZES UNDERSTANDING TO STAY IN BED.
--- NOTE | 2021-11-04 05:57 | NUR ---
covid swab collected sent to in-house lab
--- NOTE | 2021-11-04 06:51 | NUR ---
Notified by staff when I arrived, Valentin's covid test was + from last night. Will retest as pt will not be able to dc to [facility] or transport by taxi if he is +.
--- NOTE | 2021-11-04 07:27 | NUR ---
covid swab repeat dropped off at in-house lab
--- NOTE | 2021-11-04 07:33 | NUR ---
Patient awake resting in bed, no distress. Patient reports he slept well. Personal supplies and call light within reach.
--- NOTE | 2021-11-04 08:06 | NUR ---
Called and spoke with Danae and she is unable to accept this pt until Tuesday, Nov.09. Called and notified Yolanda Lopez to cancel Security to ride with pt. Notified taxi pt will not transport today. Called [facility] transport and rescheduled transport for Tuesday the at 10am.
--- NOTE | 2021-11-04 09:14 | NUR ---
Tylenol 500mg po and ultram 50mg po admin for left hip pain.
--- NOTE | 2021-11-04 09:30 | NUR ---
Emailed Keren at [facility] with update.
--- NOTE | 2021-11-04 11:28 | NUR ---
Patient doing well this morning, no distress. Vital signs stable, afebrile. Patient's mood is pleasant, he is easily redirectable. Patient has no current needs. Personal supplies and call light within reach.
--- NOTE | 2021-11-04 13:26 | NUR ---
Risperidone 0.5mg po admin for agitation.
--- NOTE | 2021-11-04 14:07 | NUR ---
PT TESTED POSITIVE FOR COVID TODAY. UNDER PRECAUTIONS, WILL FOLLOW
--- NOTE | 2021-11-04 15:20 | NUR ---
Patient taking nap in chair, eyes closed, respirations even and non labored. Patient has no distress. Personal supplies and call light within reach.
--- NOTE | 2021-11-04 16:25 | NUR ---
Ultram 50mg po and tylenol 500mg po admin for left hip pain. Patient provided with fresh water and a popsickle. Patient has no distress.
--- NOTE | 2021-11-04 17:24 | NUR ---
PT IS UP TO CHAIR EATING, HE NEEDS A LOT OF CONVINCING TO EAT. HE HAD ONE SLICE OF PIZZA AND DIDN'T WANT ANYMORE, ORDERED A CHEESEBURGER AND HE'S JUST PLAYING WITH IT. HE IS DRINKING HIS ENSURE.
--- NOTE | 2021-11-04 19:30 | NUR ---
SHIFT REPORT RECEIVED FROM GELY ROSA. VINCENZO COPPOLA IN ROOM WITH PT, REDIRECTING HIM TO STAY IN ROOM. NO NEEDS AT THIS TIME. CALL LIGHT IN REACH.
--- NOTE | 2021-11-04 20:51 | NUR ---
Patient showered w/ SBA.
--- NOTE | 2021-11-04 21:00 | NUR ---
ASSESSMENT COMPLETED. SCHEDULED MEDS PROVIDED. PT PAIN 4/10, PRN PAIN MED PROVIDED. LEFT HIP SURGERY SITE WNL. LUNGS CLEAR/DIM IN ALL LOBES. ABD SOFT, NONTENDER, BOWEL TONES ACTIVE. CMS INTACT. 1+ BLE EDEMA NOTED. SCATTERED BRUISING AND OLD SCARS NOTED. PT IS CALM IN SPEECH BUT VERY ACTIVE IN MOVEMENT, STAFF ATTEMPTING TO REDIRECT. NO OTHER NEEDS AT THIS TIME. CALL LIGHT IN REACH. STAFF IN ROOM.
--- NOTE | 2021-11-04 21:28 | NUR ---
Patient put on their socks independently.
--- NOTE | 2021-11-04 23:20 | NUR ---
CHECKED ON pt. UP IN CHAIR, APPEARS DROWSY. pt COOPERATIVE, SBA TO BED. WARM BLANKET PROVIDED. SLEEP MUSIC ON COMPUTER. TV OFF. pt CLOSING EYES. BED ALARM SET.
--- NOTE | 2021-11-05 | NUR ---
PT RESTING IN BED. BED ALARM ON, RAILS UP, CALL LIGHT IN REACH.
--- NOTE | 2021-11-05 00:27 | NUR ---
Patient will sometimes demand staff to "leave" or tell them to go to the other side of the room and refuse care. Patient has tried to grab my arm but missed and I informed the patient that's not acceptable behavior. Patient likes to walk around the room, SBA.
--- NOTE | 2021-11-05 01:08 | NUR ---
Patient has been sleeping in bed since about 11:20pm with bed call light on.
--- NOTE | 2021-11-05 02:29 | NUR ---
BED ALARM SOUNDING, ASSISTED pt TO LIE BACK IN BED. BED ALARM ON. CLOSE MONITORING FROM RN AT THIS TIME.
--- NOTE | 2021-11-05 02:31 | NUR ---
BED ALARMING, PT UP TO BR. NEW BRIEFS PROVIDED. VINCENZO COPPOLA IN ROOM TO ASSIST.
--- NOTE | 2021-11-05 02:47 | NUR ---
BED ALARM SOUNDING. pt SITTING AT SIDE OF BED. ASSISTED BACK TO BED, ORIENTATION TO TIME OF DAY PROVIDED. WARM BLANKET PROVIDED. BED ALARM ON.
--- NOTE | 2021-11-05 03:50 | NUR ---
PT AWAKE IN ROOM. VINCENZO ALVAREZA IN ROOM WITH PT.
--- NOTE | 2021-11-05 04:24 | NUR ---
PT IS AGITATED AND LIMPING ON LEFT HIP, PRN AGITATION AND PAIN MEDS PROVIDED. SECURITY IN ROOM. ASSESSMENT COMPLETED. LEFT HIP SITE WNL WITH FELIPA. PT REDIRECTED TO BED. VINCENZO COPPOLA IN ROOM TO COMPLETE VS & I&O.
--- NOTE | 2021-11-05 04:53 | NUR ---
PT RESTING IN BED AT THIS TIME, EYES CLOSED. RR EVEN, UNLABORED.
--- NOTE | 2021-11-05 05:26 | NUR ---
PT RESTING IN BED, RR EVEN,UNLABORED. RAILS UP, BED ALARM ON, CALL LIGHT IN REACH.
--- NOTE | 2021-11-05 06:37 | NUR ---
PT RESTING IN BED. RR EVEN, UNLABORED. BED ALARM ON, RAILS UP, CALL LIGHT IN REACH.
--- NOTE | 2021-11-05 07:08 | NUR ---
report recieved from shift supervisor melting RN, pt sleeping in bed, no needs at the moment, monitor for behaviors and saftey, requiring redirection for saftey, no needs at the moment
--- NOTE | 2021-11-05 09:15 | NUR ---
Cont. await placement on Tuesday to [facility]. Secure email to Swathi of pt's vaccination record for covid.
--- NOTE | 2021-11-05 09:30 | NUR ---
rn in room to answer bed alarm pt assisted up to the bathroom to void provided with clean scrub pants and clean attends provided , able to redirect pt to sit on the edge of the bed and eat breakfast vital signs done, pt is easily redirected provided with newspaper and was able to play card games
--- NOTE | 2021-11-05 11:29 | NUR ---
pt requesting to lay down in bed for a nap, pt resting in bed bed alarm on for saftey
--- NOTE | 2021-11-05 14:26 | NUR ---
PT SITTING UP IN BED, LUNCH TRAY PROVIDED.
--- NOTE | 2021-11-05 16:04 | NUR ---
RN IN REMAINS IN ROOM WITH PATIENT IN 1:1 PT REMAINS VERY CONFUSED BUT EASILY REDIRECTED AT THE MOMENT
--- NOTE | 2021-11-05 16:10 | NUR ---
PT IS STARTING TO GET RESTLESS ATTEMPTING TO LEAVE THE ROOM MULTIPLE TIMES ABLE TO REDIRECT BACK TO THE CHAIR
--- NOTE | 2021-11-05 18:06 | NUR ---
TED 1:1 IN PT ROOM, PT IS COMPLAINING OF PAIN PRN TRAMADOL PROVIDED, TRYING TO REDIRECT PT HE IS TRYING TO LEAVE THE ROOM, SECURITY IN ROOM TRYING TO CALM PATIENT DOWN.
--- NOTE | 2021-11-05 19:20 | NUR ---
SHIFT REPORT RECEIVED FROM DIDI ROSA. ANAT MORENO IN ROOM.
--- NOTE | 2021-11-05 19:20 | NUR ---
in to releave rn from pts room, pt up to the toilet then back to bed
--- NOTE | 2021-11-05 19:40 | NUR ---
pt has been sitting up at the bathroom sink with shower chair, pt talks about brushing his teeth and combing his hair
--- NOTE | 2021-11-05 20:15 | NUR ---
pt out of bathroom for a little bit, then back to the sink to shave his face, sitting with the shower chair at the sink. pt gremises at times, states he is feeling sore, will tell the rn
--- NOTE | 2021-11-05 20:30 | NUR ---
attempted to have pt come back to the bed so the rn could bring his pm med, pt walking in room, asking for new socks, sits to swivel chair, pt asked who wilL help him shave, pt becomes irritable when facility engineer asks pt to sit in the bed, so we can get vitals, states leave me be, and goes back to the bathroom sink
--- NOTE | 2021-11-05 20:45 | NUR ---
pt not letting this keno writer assist him with shaving chear and washcloth, pt comes back to the bedside, rn coming with meds, staring vitals, med pass complete
--- NOTE | 2021-11-05 21:00 | NUR ---
pt looking for , walks to the bathroom again, looking for electric razor, wants to brush teeth, sits in the bath chair at sink
--- NOTE | 2021-11-05 21:30 | NUR ---
PT IS SITTING AT BEDSIDE, HE IS CHATTY, SITTING WITH PT AND ENCOURAGING PT LAY DOWN
--- NOTE | 2021-11-05 21:30 | NUR ---
ASSESSMENT COMPLETED. SCHEDULED MEDS PROVIDED. PT ORIENTED ONLY TO SELF. PT IS SLIGHTLY AGITATED. PT LIMPING ON LEFT HIP, STATES IT IS SORE. PRN PAIN MED PROVIDED. CMS INTACT. SURGERY SITE WNL. LUNGS CLEAR. PT DOES NOT HAS CONGESTION OR NASAL DISCHARGE. PT DENIES SOB. ABD SOFT, NONTENDER, BOWEL TONES ACTIVE. ICE WATER PROVIDED. NO OTHER NEEDS. OIL REFINER JOSH IN ROOM.
--- NOTE | 2021-11-05 21:50 | NUR ---
PT IS AT BEDSIDE, STILL CHATTING BUT FEELING TIRED, PT NOT LAYING DOWN FOR THIS UNARMED SECURITY GUARD YET
--- NOTE | 2021-11-05 23:21 | NUR ---
Patient voided and had a small bowel movement. Patient was assisted with melissa care and has a new brief on. Patient was encouraged to sleep in the bed. Patient is in bed sleeping with the bed alarm on.
--- NOTE | 2021-11-05 23:48 | NUR ---
PT RESTING IN BED, EYES CLOSED. RR EVEN, UNLABORED. RAILS UP, BED ALARM ON, CALL LIGHT I NREACH, CURTAIN OPEN.
--- NOTE | 2021-11-06 01:03 | NUR ---
PT RESTING IN BED. RR EVEN, UNLABORED. CALL LIGHT IN REACH, RAILS UP, BED ALARM ON.
--- NOTE | 2021-11-06 02:53 | NUR ---
PT BED ALARM SOUNDING. PT YELLING ABOUT JACQUELINE AND WANTING A DIVORCE. PT WALKS TO BR WITH LIMP, DECLINES TO ANSWER IF HE IS IN PAIN. PT THROWING ITEMS IN TOILET, TRYING TO FLUSH THEM. PT ATTEMPTS TO HIT THIS RN. SECURITY CALLED. PT VERBALLY AGGRESSIVE TO STAFF. SECURITY AND JOSH DIGITAL PRODUCT MANAGER IN ROOM. PT PROVIDED PRN MED FOR AGITATION AND PRN PAIN MED. PT PROVIDED DRINK. SECURITY AND DIGITAL PRODUCT MANAGER STAY IN ROOM AT THIS TIME PT IS STILL AGITATED.
--- NOTE | 2021-11-06 03:20 | NUR ---
[id number] THIS BRAKE TESTER IN WITH SECURITY, PT UP IN , MOE VALDIVIA IN WITH MEDS, PT SITING IN BED, LAYS DOWN, TUCKED IN, SECURITY OUT OF , THIS BRAKE TESTER REMAINING WITH PT PT FELL ASLEEP, NO FURTHER NEEDS
--- NOTE | 2021-11-06 04:02 | NUR ---
PT RESTING IN BED, EYES CLOSED. RR EVEN, UNLABORED. BED ALARM ON, RAILS UP, CALL LIGHT IN REACH.
--- NOTE | 2021-11-06 04:30 | NUR ---
IN TO SWAP WITH RN AFTER BED ALARM SET OFF, PT UP TO THE TOILET, PT THEN DECIDED TO TAKE A SHOWER RIGHT NOW, SBA WITH PT, PT ASSISTED WITH DRYING OFF, NEW GOWN AND ATTENDS IN PLACE, PT IS LAYING IN BED FOR NOW, x4 RAILS AND BED ALARM SET,
--- NOTE | 2021-11-06 04:55 | NUR ---
bed alarm set off. pt up to the sink to brush teeth, comb hair, in with pt for safety
--- NOTE | 2021-11-06 04:55 | NUR ---
PT TOOK A SHOWER WITH TOI SABA. PT DECLINES TO ALLOW FOR COMPLETE ASSESSMENT. LEFT HIP SURGERY SITE WNL, FELIPA STILL IN SITE, LESA. DATA CENTER OPERATOR IN ROOM FOR SAFETY.
--- NOTE | 2021-11-06 05:15 | NUR ---
chair alarm set off, pt looking for razor, attempting to redirect pt, pt sitting in chair, will assist pt with an electic razor on dayshift, pt accepts this answer for a little bit, then resumes focus on needing a razor
--- NOTE | 2021-11-06 05:20 | NUR ---
pt provided with ice water and a coffee, this power bender operator remains in the room while pt relaxes in the chair
--- NOTE | 2021-11-06 05:50 | NUR ---
pt has been chatting, reclining in the chair, this keno writer / runner in
--- NOTE | 2021-11-06 06:10 | NUR ---
pt on and off asleep in chair,
--- NOTE | 2021-11-06 06:30 | NUR ---
pt is wake, walks in the room, tring to sit on the couch, attempts made to have pt goto the bed, pt instead returns to the chair, blankets provided, attempt to turn chair alarm fails as pt tried to get up, will try to set alarm once pt starts to fall asleep
--- NOTE | 2021-11-06 06:34 | NUR ---
PT UP IN CHAIR TALKING WITH STAFF. JOSH COPPOLA IN ROOM.
--- NOTE | 2021-11-06 07:19 | NUR ---
REPORT RECEIVED FROM MOE HIDALGO. PT UP TO CHAIR, PT AWAKE AND RESPONDING TO QUESTIONS APPROPRIATLY. PT STATES "THEY ARE TAKING REALLY GOOD CARE OF ME HERE." PT DENIES ANY REQUESTS OR COMPLAINTS. SMILING. CHAIR ALARM ON. CALL LIGHT WITHIN REACH. PT EASILY VIEWED FROM NURSES STATION.
--- NOTE | 2021-11-06 08:50 | NUR ---
MORNING ASSESSMENT AND MEDICAITON DUE. PT UP TO CHAIR WATCHING TV. PT CALM AND COOPERATIVE. PT GIVING MULTIPLE COMPLIMENTS TO NURSING STAFF AND SITUATION, "YOU ARE HERE JUST AT THE RIGHT TIME" "YOU ARE DOING EVERYTHING SO WELL." PT REMAINS DISORIENTED TO ALL BUT SELF. UNSURE WHERE HE IS OR WHY HE IS AT THE HOSPITAL. PT STATES IT IS YEAR "2033." PT REORIENTED AND STATES "OH, THAT'S HOW IT IS." PT IS ABLE TO FOLLOW DIRECTIONS AND RESPOND TO QUESTIONS. STRENGTH REMAINS WNL. PT IS ABLE TO LIFT BOTH LEGS. PLANTAR AND JENNY FLEXION TO BILATERAL EXTREMTIES STRONG AND EQUAL BILATERALLY. PT DENIES PAIN AND NAUSEA AT THIS TIME. LUNG SOUNDS CLEAR. NO COUGH OR SHORTNESS OF BREATH NOTED. OXGYEN SATURATION 99%. HEART TONES IRREGULAR, MILD TACHY CARDIA NOTED WITH HR 90-110. TRACE EDMA NOTED TO BLE. OT STATED PT HAS MULTIPLE BOWEL MOVMENTS YESTERDAY AND TO HOLD STOOL SOFTENER, STOOL SOFTENER HELD, WILL REASSESS THIS EVENING. INCISION TO LEFT HIP REMAINS WELL APROXIMATED WITH FELIPA IN PLACE. MINMAL REDNESS AND SWELLING NOTED AROUND WOUND EDGES. PT DENIES PAIN. PT DENIES ADDITIONAL REQUESTS OR COMPLAINTS. CALL LIGHT WITHIN REACH. CURTAIN OPEN FOR EASY VIEWING FROM NURSES STATION.
--- NOTE | 2021-11-06 09:50 | NUR ---
Awaiting placement on Tuesday. NO change in plan for discharge.
--- NOTE | 2021-11-06 10:15 | NUR ---
DR LOVETT TO BEDSIDE FOR ROUNDS. VERBAL ORDERS GIVEN TO REMOVE FELIPA FROM LEFT HIP SURGICAL SITE AND APPLY STERI STRIPS. 1 PERSON ASSIST BACK TO BED. PT LYING ON RIGHT SIDE. FELIPA REMOVED. PT TOLERATED PROCEEDURE WELL. PT DENIES PAIN WITH PROCEEDURE. 13, 1/2 INCH STERI STRIPS STRIPS APPLIED. WOUND EDGES WELL APRXIMATED WITH MILD ERYTHEMA NOTED AROUND SAPLE LOCATIONS. VITAL SIGNS STABLE. DEPENDS CHANGED. CLAY CARE DONE. PT RESTING ON RIGHT SIDE WITH EYES CLOSED. RESPIRATIONS EVEN AND UNLABORED. CALL LIGHT WITHIN REACH. BED ALARM ON. BED RAILS UP. PT EASILY VIEWED FROM NURSES STATION.
--- NOTE | 2021-11-06 11:58 | NUR ---
PT FOUND UP TO RESTROOM ON HIS OWN. PT VOIDING, THIS RN TO ROOM. PT ASSISTED WITH CLAY CARE. CLAY AREA INTACT. STAND BY ASSIST WITH FWW UP TO CHAIR FOR LUNCH. CHAIR ALARM PLACED. PT CALM AND COOPERATIVE WITH CARES. PT DENIES PAIN AND NAUSEA. AWAITING LUNCH. NO ADDITIONAL REQUESTS OR COMPLAINTS. CALL LIGHT WITHIN REACH. PT EASILY VIEWED FROM NURSES STATION.
--- NOTE | 2021-11-06 12:11 | NUR ---
LUNCH DELIVERED TO PT. PT EXPRESSES GRATITUDE FOR FOOD. PT EATING WHILE UP TO CHAIR. NO ADDITIONAL REQUESTS OR COMPLAINTS. CALL LIGHT WITHIN REACH. CHAIR ALARM ON.
--- NOTE | 2021-11-06 12:45 | NUR ---
PT AGITATED AND GETTING UP FROM CHAIR. PT TEARFUL AND TELLING STORIES FROM HOME. PT REPORTS "I JUST WANT TO WALK AROUND." N95 MASK PLACED ON PT. FRESH CLEAN GOWN PLACED, ROBE PLACED. PT AMBULATES IN COVID SIDE OF HALLWAY WITH SBA AND FWW, PT DOES NOT TOUCH ANY OTHER ITEMS IN ALEJO. PT CHEERFUL WITH AMBULATION. PT BACK TO ROOM. TOWELS PROVIDED FOR PT TO FOLD. PT SITTING UP TO CHAIR FOLDING TOWELS. CHAIR ALARM ON. CALL LIGHT WITHIN REACH.NO ADDITIONAL REQUESTS OR COMPLAINTS.
--- NOTE | 2021-11-06 14:59 | NUR ---
AFTERNOON ASSESSMENT AND MEDICATION DUE. PT SITTING ON EDGE OF BE TALKING DRAGGER OUT LIGHT IF IT IS A PHONE. PT REPORTS HE WANTS TO WALK AROUND THE ROOM. PT UP WITH FWW AND STAND BY ASSIST TO AMBULATE IN ROOM. PT REPORTS LEFT HIP PAIN STATING "IT HURTS A LOT." PT IS OTHERWISE UNABLE TO QUANTIFY PAIN. SEE MAR FOR MEDICATION GIVEN. PT REMAINS DISORITEND TO PLACE, TIME/DATE, AND EVENTS. PT ABLE TO STATE HIS OWN NAME AND FOLLOWS DIRECTIONS. LUNG SOUNDS CLEAR. PT REMAINS 98-100% ON ROOM AIR. HEART TONES REMAIN IRREGULAR. PULSES STRONG. INCISION TO LEFT HIP REMAINS C/D/I WITH EDGES WELL APPROXIMATED. STERIS STRIPS MOSTLY INTACT, SOME EDGES PEELING AWAY. MILD ERATHEMA NOTED WHERE FELIPA USED TO BE. PT SITTING ON EDGE OF BED. BED ALARM ON. CALL LIGHT WITHIN REACH
--- NOTE | 2021-11-06 16:11 | NUR ---
CHARGE NURSE NOTED TO BE WATCHING PT FROM DOOR. THIS RN TO ROOM. PT WONDERING AROUND ROOM POOPING IN VARIOUS PLACES ON THE FLOOR. PT GUIDED TO BATHROOM. PT STARTS SWINGING PUNCHES AT THIS RN AND YELLING "GET OUR OF HERE BITCH." SECURITY CALLED TO BEDSIDE. PRN ZIPRAZADONE GIVEN. PT HAS ADDITIONAL LARGE SOFT BOWEL MOVMENT IN TOILET. STOOL COVERING PTS LEGS. PT GUIDED TO SHOWER BY SECURITY. PT CONTINUES THROWING PUNCHES. PT CALMS WITH WARM WATER AND ASSISTS WITH SHOWER. SKIN CLEANED, CLAY AREA CLEANED, FRESH GOWN, DEPENDS, AND SOCKS PLACED. PT GUIDED BACK TO BED BY SECURITY. WARM BLANKETS PROVIDED. PT RESTINGIN BED WITH EEYS CLOSED. RESPRIATIONS EVEN AND UNALBORED. BED RAILS UP. BED ALARM ON.
--- NOTE | 2021-11-06 17:02 | NUR ---
PT CONTINUES TO BE AGITATED AND TRYING TO GET OUT OF BED. PT UP FOR WHEELCHAIR RIDE OUTSIDE WITH OCCUPATIONAL THERAPY, KELLY (WEAPONS ENGINEER) AND CARLOS (SECURITY). N[address] PT COOPERATIVE AND FOLLOWING DIRECTIONS.
--- NOTE | 2021-11-06 18:01 | NUR ---
PT RETURNED FROM WALK/RIDE OUTSIDE. PT EATING DINNER. THIS RN TO ROOM. PT REPORTS HE HAD A NICE WALK AND A GOOD DINNER. PT CALM AND COOPERATIVE AT THIS TIME. PT POINTS TO HIS TOES AND STATES "THAT CORN ON THE COB IS TOO HARD." NOTED THAT PT IS WEARNING YELLOW SOCKS. PT ENCORUAGED TO REST IN BED. CLOSE OBSERVATION CONTINUES. BED ALARM ON. BED RAILS UP.
--- NOTE | 2021-11-06 18:26 | NUR ---
PT HERE FOR LEFT HIP FRACTURE AND COVID 19. PT UP WITH STAND BY ASSIST AND FWW THIS SHIFT TO AMBULATE IN ROOM, ALEJO AND OUTSIDE. PT TOLERATING REGULAR DIET WITH GOOD APPITITE. PT PRN TYLENOL GIVEN X1 THIS SHIFT FOR REPORTS OF PAIN. PT DENIES NAUSEA THIS SHIFT. AGITATION EPSODE WITH STOOL THIS AFTERNOON (SEE RN NOTE). PRN MEDICATION GIVEN AND PT OUT SIDE FOR FRESH AIR. FELIPA REMOVED FROM LEFT HIP WOUND THIS SHIFT, PER DR. LOVETT. STERI STRIPS APPLIED. PT VOIDING QUANTITY SUFFICIENT. PT DOES NOT USE CALL LIGHT, ROOM NEAR NURSES STATION, BED/CHAIR ALARM FOR SAFETY.
--- NOTE | 2021-11-06 18:39 | NUR ---
PTS FAMILY, NADIA, CALLED AND UPDATED ON PT STATUS AND PLAN OF CARE. NADIA VERBALIZES UNDERSTANDING AND STATES HER QUESTIONS HAVE BEEN ANSWERED.
--- NOTE | 2021-11-06 19:29 | NUR ---
BEDSIDE REPORT FROM HENRY ROSA, PT SITTING UP IN BED ALERT. CALM DEMEANOR AT THIS TIME.
--- NOTE | 2021-11-06 19:30 | NUR ---
pt recently set off bed alarm, pt says 'oops sorry can you help turn this off?' pt is leaned to one side one, will montitor pt as needed
--- NOTE | 2021-11-06 20:00 | NUR ---
INTO PT ROOM TO ADMINISTER HS MEDS AND COMPLETE HS ASSESSMENT. PT UP WITH NAAT MORENO TO BATHROOM, HE IS AGGITATED, TOLD JOSH "STAY OUT" FROM THE BATHROOM. THIS RN INTO ROOM WITH MEDS, PT AMBULATING TO ROOM DOOR. THIS RN ASKED "MARK WILL YOU PLEASE ALLOW US TO TAKE V/S SO EVENING MEDICATIONS INCLUDING B/P MEDICATIONS CAN BE GIVEN. PT TURNED AROUND AND SAT ON EDGE OF BED, HE LOOKED AT THIS RN WITH EYES SQINTED/GLARE AND SAID "MY MEDICATIONS ARE NONE OF YOUR FUCKING BUSINESS, DONT ASK ME ABOUT MY FUCKING MEDICATIONS AGAIN, DUE YOU UNDERSTAND!" HIS VOICE IS AT THIS POINT RAISED TO YELLING, PT THEN GETS UP AMD AMBULATES TO ROOM DOOR AND WALKS OUT HE SAID "I AM GOING HOME RIGHT NOW, STAY OUT OF MY WAY" JOSH WAS ABLE TO HAVE PT PUT ON A MASK HE LEFT HIS ROOM. KIRSTEN LEON CALLED FOR ASSISTANCE PATIENT AMBULATING TO C DOORS, THIS RN BROUGHT WHEELCHAIR DOWN THE ALEJO, THIS RN AND JOSH COPPOLA NOT ENOUGH STAFF TO PROVIDE SAFE INTERVENTION OF ASSISTING PT BACK TO HIS ROOM. SECURITY AND IMAGING DEPT STAFF ARRIVED TO ASSIST. ONCE ENOUGH STAFF AVAILABLE TO SAFELY ASSIST. THIS RN APPROCHED PT AND SAID "MARK ALL THIS ALKING IS GOING TO MAKE YOUR HIP SORE, HOW ABOUT YOU HAVE A SIT DOWN IN THIS CHAIR" PT SAID "MY HIP IS ALREADY SORE HE BEGAN TO TURN TO SIT IN WHEELCHAIR. PT WHEELED BACK TO HIS ROOM AND TRANSFERED TO HIS BED WITH SECURITY ASSISTING.
--- NOTE | 2021-11-06 20:36 | NUR ---
THIS RN INTO PT ROOM AT THIS TIME TO ASSESS PT FOR WILLINGNESS TO TAKE HS MEDICATIONS. PT NOW RESTING IN BED, HE SAT UP, TIPPED MEDICATION CUP INTO HIS MOUTH HE DRANK WATER THEN OPENED HIS MOUTH TO SHOW SECURITY THAT HE HAD TAKEN THIS WAS NOT ASKED OF HIM. HE DRANK SOME MORE WATER AND SAID TO ME, "YOU PEOPLE KEEP LYING TO ME, I DONT KNOW WHO I CAN TRUST, I GUESS YOU KNOW THE DOCTOR THOUGH" HE THEN RESTED BACK IN BED.
--- NOTE | 2021-11-06 21:17 | NUR ---
PT'S BED ALARM SOUNDED. PT SITTING AT EDGE OF BED. ABLE TO REDIRECT PT BACK INTO BED. PT AGREEABLE TO VS TAKEN. HE DENIES FURTHER NEEDS. BED ALARM IS ON AND MANISH FROM SECURITY STOPPED BY TO HELP. CALL LIGHT IS CLOSE.
--- NOTE | 2021-11-06 22:00 | NUR ---
[id number] IN WITH PT, PT IS CHATTY, ENGAUGING WITH PT, PT SITS ON THE SIDE OF THE BED, THIS ASSESSMENT DIRECTOR CONVINCES PT TO LAY BACK IN BED, x4 RAILS AND BED ALARM SET, PT VIEWABLE VIA RN STATION
--- NOTE | 2021-11-06 22:45 | NUR ---
BED ALARM SET OFF, PT IS UP IN RM, DOES NOT REDIRECT TO LAYING IN BED, THIS MANAGER CLINICAL IN ROOM FOR PTs SAFETY
--- NOTE | 2021-11-06 23:00 | NUR ---
PT WALKS IN RM, LOOKING FOR SHOES, REDIRECTABLE TO SITING IN THE CHAIR FOR NOW, PT DID NIT WANT TO RECLINE AT THIS TIME, THIS FINANCIAL ANALYSIS ADVISOR IN RM
--- NOTE | 2021-11-06 23:09 | NUR ---
JOSH COPPOLA CURRENTLY IN PT ROOM 1:1 AT THIS TIME.
--- NOTE | 2021-11-06 23:45 | NUR ---
PT IS RECLINING IN THE CHAIR, ALARM SET, WILL SIT WITH PT TO SEE IF PT FALLS ASLEEP BEFORE LEAVING THE ROOM
--- NOTE | 2021-11-07 | NUR ---
PT HAS BEEN UP AND DOWN FROM THE CHAIR, PT IS NOT REMAINING IN THE RECLINING POSITION, TALKS WITH HIS DOG AT TIMES
--- NOTE | 2021-11-07 00:43 | NUR ---
PT RESTING BACK IN RECLINER AT THIS TIME, EYES CLOSED RR EVEN 16 BPM
--- NOTE | 2021-11-07 00:50 | NUR ---
PT SAT UP SET OFF CHAIR ALARM, PT ASSISTED TO HOSPITAL BED, REORIENTED PT TO TIME, AND NEED FOR HIM TO GET SLEEP SO HE CAN PARTICIPATE IN THERAPIES TOMORROW.
--- NOTE | 2021-11-07 01:30 | NUR ---
PT'S BED ALARM SOUNDED, HE WAS TRYING TO GET OUT OF BED. ASSISTED PT TO GET BACK IN BED CORRECTLY. BED ALARM IS ON AND CALL LIGHT IS CLOSE. PT DENIES NEEDS.
--- NOTE | 2021-11-07 01:54 | NUR ---
bed alarm, security ivan on unit to help re-direct pt to stay in bed and try to sleep. ivan is in pt room at this time.
--- NOTE | 2021-11-07 04:42 | NUR ---
PT WAS AGITATED AND UNABLE TO REDIRECT AT START OF SHIFT. AFTER HS MEDICATION PASS PT LESS AGITATED AND MORE EASILY REDIRECTABLE, HE DID NOT SLEEP UNITL APPROXIMATE 0300. HE REPORT PAIN AT HIS HIP TYLENOL PRN PO ADMINISTERED AT HS AND ICE PACK PROVIDED. PT ENCOURAGED TO REST AND SLEEP OVER THIS SHIFT. NO NEW CONCERNS THIS SHIFT.
--- NOTE | 2021-11-07 06:01 | NUR ---
PT UP TO BATHROOM, HE HAS HAD FULL BED INCONT. OF URINE. PT IS COOPERATIVE AT THIS TIME
--- NOTE | 2021-11-07 07:30 | NUR ---
SHIFT REPORT RECEIVED FROM MOE BRYANT BY THIS RN. PATIENT RESTING QUIETLY ON HIS LEFT SIDE, EYES ARE CLOSED, RESPIRATIONS ARE REGULAR AND EVEN, CALL LIGHT IN REACH, AND BED ALARM IS ON. PATIENT REMAINS IN COVID ISOLATION. PATIENT HAS NO NOTED CARE NEEDS AT THIS TIME.
--- NOTE | 2021-11-07 09:33 | NUR ---
PATIENT CONTINUES TO REST WITH HIS EYES CLOSED, RESPIRATIONS ARE REGULAR AND EVEN, CALL LIGHT IN REACH, AND BED ALARM ON.
--- NOTE | 2021-11-07 10:32 | NUR ---
THIS HARDBOARD PRESS OPERATOR CHECKED ON PATIENT. PATIENT IN BED RESTING WITH EYES CLOSED. RESPIRATIONS OBSERVED. VITALS AND I&O'S NOT CHARTED PATIENT IS RESTING AND RN REQUESTED TO LET HIM BE UNTIL AWAKE. CALL LIGHT IN REACH.
--- NOTE | 2021-11-07 11:01 | NUR ---
PATIENT WAS ASLEEP UNTIL THIS RN AND ANAT QUINTERO CAME IN TO PERFORM VS AND ASSESSMENT. PATIENT IS PLEASANT AND COOPERATIVE THIS MORNING. PATIENT UP TO THE BATHROOM AND VOIDED, BUT HAD ALREADY BEEN INCONTINENT IN THE BED. LINENS CHANGED AND NEW ATTENDS ON. PATIENT HVING NO NOTEABLE RESPITORY PROBLEMS. PATIENT TOOK AM MEDS AND WAS SET UP IN THE BEDSIDE ARMCHAIR FOR BREAKFAST AND IS EATING AT THIS TIME. CALL LIGHT IS IN REACH AND CHAIR ALARM IS ON. PATIENT CAN BE SEEN FROM THE NURSES STATION DESK. NO OTHER CARE NEEDS NOTED AT THIS TIME.
--- NOTE | 2021-11-07 11:31 | NUR ---
PATIENT UP TO THE BATHROOM 1PA AND REFUSED USE OF WALKER AT THIS TIME. PATIENT HAD A SMALL BM AND VOIDED. PATIENT IN BED NOW IN LOW FOWLERS POSITION AND BED ALARM IS ON. PATIENT ATE 100% OF HIS BREAKFAST. PATIENT REMAINS PLEASANT AND COOPERATIVE. NO OTHER CARE NEEDS NOTED AT THIS TIME. CALL LIGHT IS IN REACH AND PATIENT HAS BEEN SHOWN HOW TO USE IT, BUT HE HAS NOT USED IT SO FAR THIS SHIFT. PATIENT REMAINS ONLY ORIENTED TO SELF.
--- NOTE | 2021-11-07 11:57 | NUR ---
PATIENT RESTING QUIETLY SUPINE IN BED, RESPIRATIONS ARE REGULAR AND EVEN, EYES ARE CLOSED, CALL LIGHT IN REACH, AND BED ALARM IS ON.
--- NOTE | 2021-11-07 13:41 | NUR ---
EKG OBTAINED BY MOE MEDINA AND GIVEN TO TO READ. MOE MEDINA REMAINS IN PATIENT'S ROOM SETTING UP HI LUNCH AND GETTING PATIENT BACK FROM THE BATHROOM.
--- NOTE | 2021-11-07 14:03 | NUR ---
PATIENT UP TO BATHROOM AND THEN TO BED, SBA FWW. VITALS AND I&O'S CHARTED. CALL LIGHT IN REACH. BED ALARM ON. NO FURTHER NEEDS AT THIS TIME.
--- NOTE | 2021-11-07 14:53 | NUR ---
PATIENT BED ALARM GOING OFF. THIS RN WENT IN AND ASKED WHERE PATIENT WAS HEADED,"NOWHERE", THE PATIENT SAID. AFTERNOON ASSESSMENT COMPLETE. PATIENT'S BED ALARM IS ON AND HE HAS NO OTHER CARE NEEDS AT THIS TIME.
--- NOTE | 2021-11-07 15:38 | NUR ---
PATIENT BED ALARM GOING OFF AND THIS RN HELPED PATIENT FROM THE BED TO THE BEDSIDE ARMCHAIR AND CHAIR ALARM TURNED ON. AFTERNOON MEDS GIVEN AND PATIENT JUST FINISHED UP HIS AFTERNOON MEAL HIS SENNA WAS GIVEN WELL. PATIENT'S LEGS ARE ELEVATED AND CALL LIGHT IN REACH. PATIENT WATCHING HIS "COWBOY SHOW." NO OTHER CARE NEEDS AT THIS TIME.
--- NOTE | 2021-11-07 17:48 | NUR ---
PATIENT UP TO BATHROOM AND BACK TO BED, SBA FWW. VITALS AND I&O'S CHARTED. CALL LIGHT IN REACH. BED ALARM ON. NO FURTHER NEEDS AT THIS TIME.
--- NOTE | 2021-11-07 19:34 | NUR ---
BEDSIDE REPORT FROM YESICA Greco RN, PT RESTING IN BED, HE HAS NOT BEEN COMBATIVE, HE HAS BEEN VERY ACTIVE TODAY, HE HAS BEEN DIRECTABLE.
--- NOTE | 2021-11-07 20:00 | NUR ---
IN WITH PT HE WOKE UP, GETTING BACK FORM THE TOILET, RN TO BE IN SHORTLY, PT IS PLESNT AND WALKING IN ROOM, HAD A SNACK AND IS SITTING AT THE EDGE OF THE BED, CHATTY, PT REDIRECTALBLE AND VITALS DONE, PM MEDS, THIS SMOKEHOUSE WORKER REMAINED WITH PT UNTIL EVIY TOOK OVER MONITORING PT FOR NOW
--- NOTE | 2021-11-07 21:50 | NUR ---
BEEN IN AND OUT OF PT'S ROOM MULTIPLE TIMES, PT OOB FOR MULTIPLE REASONS, REDIRECTABLE AT TIMES, PT GETS BACK INTO BED, BED ALARM SET
--- NOTE | 2021-11-07 22:09 | NUR ---
PT OOB, BACK TO BED, ASSURING PT THAT THERE IS NO DOWNSTARIS IN HIS NEW ROOM, TOLD PT TO GETS SOME REST SO HE WILL BE READY TO FINISH MOVING INTO THE NEW PLACE
--- NOTE | 2021-11-07 22:20 | NUR ---
PT RESTLESS, HE VERBALIZED NEEDING TO GET TO WORK. REDIRECTABLE, NOT COMBATIVE AT THIS TIME. REQUIRE FREQUENT REDIRECT AND BED ALARM
--- NOTE | 2021-11-07 23:16 | NUR ---
PT RESTING QUIETLY IN BED EYES CLOSED RR EVEN AT 18 BPM, NO DISTRESS NOTED AT THIS TIME.
--- NOTE | 2021-11-08 00:15 | NUR ---
IN ROOM TO ASSIST ANAT MORENO IN REDIRECTING PT. HE IS NOW BACK IN BED WITH WARM BLANKETS AND DENIES FURTHER NEEDS. CALL LIGHT IS CLOSE AND BED ALARM IS ON. PT IS VISABLE FROM RN STATION.
--- NOTE | 2021-11-08 00:20 | NUR ---
PT IS AWAKE, ASSISTED TO THE TOILET FOR AN UMEASURED VOID, PT NOW SITTING IN THE CHAIR, PUTS SOCKS ON, PT IS CONSERNED ABT NEEDING TO TURN SELF IN AND THATS HES IN TROBULE, CALLED RN IN TO ASSIST WITH REDIRECTION AND REASSURING PT OF SAFETY, GOT PT BACK INTO BED, WARM BLANKETS, LET PT KNOW WE CAN SORT THINGS OUT IN THE MORNING, BED ALARM SET, SIDE RAILS x4, NO FURTHER NEEDS, TV TURNED OFF
--- NOTE | 2021-11-08 03:29 | NUR ---
PT RESTING IN BED EYES CLOSED RR EVEN 18 BPM NO DISTRESS NOTED.
--- NOTE | 2021-11-08 04:04 | NUR ---
PT ALERT, SET OFF BED ALARM, HE IS REDIRECTABLE, HE ASKED FOR A CUP OF COFFEE THIS AM. WILL GIVE DECAF.
--- NOTE | 2021-11-08 04:15 | NUR ---
PT IS AWAKE, ASKING FOR COFFEE, PROVIDED A CUP OF DECAF, ARGEES TO STAY IN BED WAITING FOR COFFEE TO BREW
--- NOTE | 2021-11-08 04:30 | NUR ---
IN TO SIT PT IN THE CHAIR, PT HAS CHAIR ALARM, TABLE SETUP, COFFEE, PT CONENT WITH TV ON, IN VEIW OF THE RN STATION, THIS SKINNING MACHINE FEEDER IN ROOM NEEDED TO HELP KEEP PT REDIERCTED
--- NOTE | 2021-11-08 04:56 | NUR ---
PT SITTING UP IN RECLINER AT THIS TIME, HE HAS BEEN REDIRECTABLE NEEDED.
--- NOTE | 2021-11-08 05:13 | NUR ---
PT HAS BEEN VERY ACTIVE AT START OF SHIFT, HE THEN SLEPT WELL FOR AVOUT 5 HOURS HE IS NOW UP AND ACTIVE, HE HAS BEEN COOPERATIVE WITH CARE, RE-DIRECTABLE. V/S STABLE, URINE OUT QUANTITY SUFFICIENT. NO NEW CONCERNS THIS SHIFT.
--- NOTE | 2021-11-08 07:20 | NUR ---
REPORT RECEIVED FROM MOE BRYANT. PT RESTING WITH EYES CLOSED UP TO CHAIR. RESPIRATIONS EVEN AND UNALBORED. PT ALLOWED TO REST. NO ADDITIONAL NEEDS AT THIS TIME. CHAIR ALARM ON. CALL LIGHT WITHIN REACH. PT EASILY VIEWED FROM NURSES STATION.
--- NOTE | 2021-11-08 08:32 | NUR ---
MORNING ASSESSMENT AND MEDICATION DUE. PT REMAINS UP TO CHAIR. WATCHING TV. PT CALM AND COOPERATIVE AT THIS TIME. PT REPORTS HE SLEPT "PRETTY GOOD." PT PRAISING STAFF AND PEOPLE HE CAN SEE THROUGH HIS WINDOW. PT DENIES PAIN AND NAUSEA. PT REMAINS DISORIENTED TO PLACE, TIME, EVENTS AND SURROUNDINGS. PT COMMENTS ABOUT HIS HAT ON THE FLOOR "HE IS JUST RESTING." PT IS FOLLOWING DIRECTIONS AND ORIENTED TO SELF. PT ALSO STATES "I GET TO GO SOON, TODAY OR TOMORROW I THINK." INDICATING THAT PT HAS SOME UNDERSTANDING OF EVENTS. LUGN SOUNDS CLEAR. OXGYEN SATUARTION 99% ON ROOM AIR. NO COUGH NOTED. NO SHORTNESS OF BREATH NOTED. HEART TONES IRREGULAR, TACYCARDIA NOTED WITH HEART RATE IN THE 110'S. MEDICATION GIVEN. MILD EDEMA NOTED TO BLE. PT REPORTS SENSATION IS INTACT. INCISION TO LEFT HIP SHOWS EDGES WELL APROXIMATED, MINMAL REDNESS NOTED AROUND EDGES OF INCISION. STERI STRIPS NO LONGER IN PLACE. INCONTINANCE AT TIMES NOTED, DRY DEPENDS IN [place] AT THIS TIME. SENNA HELD GIVEN PTS RECENT LOOSE BOWEL MOVEMENTS. MEDICATIONS GIVEN. PT REMAINS UP TO CHAIR, EATING BREAFAST. NO ADDITIONAL NEEDS AT THIS TIME. NO ADDITIOANL REQUESTS OR COMPLAINTS. CALL LIGHT WITHIN REACH. CHAIR ALARM ON.
--- NOTE | 2021-11-08 10:08 | NUR ---
THIS RN TO ROOM. PT UP IN ROOM AT SINK. PT FINISHED WITH SHOWER AND REPORTS HE WOULD LIKE TO WALK. PT TAKEN FOR WALK DOWN [facility] [place] FRESH GOWN IN PLACE, [address]. DURING WALK PT REPORTS "IT HURTS" IN REFERENCE TO HIS LEFT HIP. TYELNOL GIVEN (SEE MAR). PT AMBULATES WITH STAND BY ASSIST AND FWW X1 LAP IN [place]. PT BACK TO ROOM AND UP TO CHAIR. PT DENIES ADDITONAL REQUSTS OR COMPLAINTS. CALL LIGHT WITHIN REACH. CHAIR ALARM ON.
--- NOTE | 2021-11-08 11:00 | NUR ---
THIS RN TO ROOM TO CHECK ON PT. PT RESTING IN RECLINER WITH EYES CLOSED, RESPIRATIONS EVEN AND UNLABORED. CHAIR ALARM ON. CALL LIGHT WITHIN REACH. PT EASILY VIEWED FROM NURSES STATION. PT ALLOWED TO REST.
--- NOTE | 2021-11-08 12:10 | NUR ---
THIS RN TO ROOM WITH MD FOR ROUNDS. PT ANSWERS DR. TALLEY'S QUESTIONS APPROPRIATLY, IS CHEERFUL, CALM AND COOPERATIVE. LUNCH DELIVERED TO PT. PT UP TO RECLINER TO EAT. PT DENIES ADDITIONAL REQUESTS OR COMPLAINTS AT THIS TIME. CALL LIGHT WITHIN REACH. CHAIR ALARM ON.
--- NOTE | 2021-11-08 13:45 | NUR ---
THIS RN TO ROOM TO CHECK ON PT. PT RESTING IN BED WITH EYES CLOSED. RESPIRATIONS EVEN AND UNALBORED. PT ALLOWED TO REST. BED RAILS UP. CALL LIGHT WITHIN REACH. BED ALARM ON.
--- NOTE | 2021-11-08 15:06 | NUR ---
THIS RN TO ROOM TO CHECK ON PT. PT CONTINUES RESTING WITH EYES CLOSED, RESPIRATIONS EVEN AND UNLABORED. BED RAILS UP. CALL LIGHT WITHIN REACH. PT ALLOWED TO REST. BED ALARM ON.
--- NOTE | 2021-11-08 15:36 | NUR ---
AFTERNOON VITALS, ASSESSMENT AND MEDICATION DUE. PT COTNINESU RESTING WITH EYES CLOSED. PT AWAKENS TO GENTAL VOICE AND TOUCH. PT REFUSES TO TAKE MEDICATION, PT SPITS WATER AND MILK AND PUDDING OUT WHEN MEDICATION IS GIVEN. PT STATES "THEY SUCK!." PT WILL NOT SWALLOW WATER, MILK, OR PUDDING. PT REPORTS PAIN BUT IS UNABLE TO RATE PAIN, TYELNOL GIVEN WITH MEDICATION. PT SPITS PILLS OUT. UNSURE HOW MUCH OF MEDICATION PT SWALLOWED. ADDITIONAL PRN DOES OF ZIPRAZADONE PULLED AND GIVEN GIVEN, PT SWALLOWS THIS DOSE WITH ICE CREAM. PT REFUSES OTHER MEDICATIONS. PT REMAINS DISORINETED TO ALL BUT SELF. PT UNABLE TO RECALL EVENTS. PT DOES NOT FOLLOW DIRECTIONS AT THIS TIME. LUNG SOUNDS REMAIN CLEAR. HEART TONES REMAIN IRREGULAR WITH HEAR RATE IN LOW 100'S. MINIMAL EDEMA CONTINUES TO BLE. LEFT HIP INCISION SHOWS EDGES WELL APROXIMATED. MILD ERYTHMA CONTINUES, UNCHAGED. NO ADDITONAL NEEDS AT THIS TIME. CALL LIGHT WITHIN REACH. BED ALARM ON. GOLD BEATER WORKING WITH PT.
--- NOTE | 2021-11-08 16:59 | NUR ---
THIS RN TO ROOM TO CHECK ON PT. PT UP TO CHAIR. PT CALM AND COOPERATIVE. WHEN ASKED IF HIS HIP IS HURTING PT STATES "OH, NOT REALLY." FLACC SCORE OF 1/10. DINNER DELIVERED. PT ASSISTED WITH MEAL TRAY PREP. BALDOMERO DDITIONAL NEEDS AT THIS TIME. CALL LIGHT WITHIN REACH. CHAIR ALARM ON.
--- NOTE | 2021-11-08 17:41 | NUR ---
PT UP IN ROOM. THIS RN TO ROOM TO CHECK ON PT. PT ASSISTED UP TO RESTROOM. PT HAS LARGE SOFT, BROWN BOWEL MOVEMENT. PT ASSISTED WITH CLAY CARE. STAND BY ASSIST WITH FWW BACK TO BED. WARM BLANKET PROVIDED. VITAL SIGNS TAKEN. PT RESTING IN BED. NO ADDITIONAL REQUESTS OR COMPLAINTS. BED RAILS UP. CALL LIGHT WITHIN REACH. BED ALARM ON.
--- NOTE | 2021-11-08 17:51 | EKG ---
[facility] [address] [place], [place] [address] Signed Atrial fibrillation Right axis deviation Abnormal ECG When compared with ECG of 25-OCT-2021 13:07, QRS axis shifted right Confirmed by JOHN TALLEY MD ([id number]) on 11/08/2021 5:51:04 PM Electronically Signed By: JOHN TALLEY MD 11/08/211750 PATIENT NAME: CHRISTIANYAQUELINMARK Electrocardiogram DATE OF : 52 PHYSICIAN: JOHN TALLEY MD REPORT #: [id number] REPORT IS CONFIDENTIAL AND NOT TO BE RELEASED WITHOUT AUTHORIZATION
--- NOTE | 2021-11-08 18:01 | NUR ---
PT HERE FOR LEFT HIP FRACTURE AND COVID 19 QUARENTEEN. PT UP WITH STAND BY ASSIST AND FRONT WHEEL WALKER TO AMBULATE IN [place] AND OUTSIDE THIS SHIFT. PT TOLERATING REGULAR DIET WITH GOOD APPITITE. BOWEL MOVEMENT NOTED THIS SHIFT, BOWEL MEDICATIONS HELD. PRN TYELNOL GIVEN THIS AFTERNOON. PT HAD DIFFICULTY TAKING AFTERNOON MEDS, SPIT MEDS OUT, SEE RN NOTE. LEFT HIP INCISION SHOWS EDGES WELL APROXIMATED WITH MINIMAL ERYTHEMA. PT REMAINS DISORIENTED TO ALL BUT SELF AND OCCATIONALLY FOLLOWING DIRECTIONS. PT EASILY REDIRECTED THIS SHIFT. PT VOIDING QUANTITY SUFFICIENT. PT DOES NOT USE CALL LIGHT. BED/CHAIR ALARM FOR SAFETY. ROOM NEAR NURSES STATION.
--- NOTE | 2021-11-08 18:18 | NUR ---
BED ALARM SOUNDING. PT UP OUT OF BED. PT STATES "I'M READY TO GO NOW." PT REORIENTED AND ADVISED THAT IT IS NIGHT TIME. PT STATES "OH, I BETTER SLEEP THEN." PT GUIDED BACK TO BED. PT DENIES PAIN AND NAUSEA. PT RESTING IN BED WATCHING TV. NO ADDITIONAL REQUESTS OR COMPLAINTS. CALL LIGHT WITHIN REACH. BED ALARM ON.
--- NOTE | 2021-11-08 19:20 | NUR ---
SHIFT REPORT RECEIVED FROM DAYSHIFT RN HENRY, pt AWAKE AND AMBULATING IN HALLWAY WITH ASSISTANT PRESS OPERATOR. pt NOW RESTING IN BED WITH BED ALARM ON. CALL LIGHT IN REACH AND pt IN VIEW OF RN STATION.
--- NOTE | 2021-11-08 20:22 | NUR ---
pt OUT OF ROOM WITH FWW INDEPENDENTLY. ASSISTED BACK INTO ROOM TO CHAIR. CHAIR ALARM ON. pt WATCHING OLYMPICS.
--- NOTE | 2021-11-08 20:54 | NUR ---
V/S TAKEN AND CHARTED BY ROMAINE MILES.
--- NOTE | 2021-11-08 21:00 | NUR ---
ASSESSMENT COMPLETE, SCHEDULED MEDS GIVEN WITHOUT ISSUE W/ WATER. PUDDING GIVEN FOR EVENING SNACK. LEFT HIP WELL APPROXIMATED, SITE WNL. pt COMPLIANT WITH CARE, OCCASSIONALLY TALKS ABOUT "CATCHING MY BUS". HX DEMENTIA, pt IN BED WITH ALARM ON. WATER AT BEDSIDE. CALL LIGHT IN REACH AND pt IN VIEW OF RN STATION.
--- NOTE | 2021-11-08 23:29 | NUR ---
pt RESTING IN BED, RR EVEN AND UNLABORED. BED ALARM ON FOR SAFETY. pt HAS ELIA BAILEY MULTIPLE TIMES BETWEEN INITIAL ASSESSMENT AND NOW, VARIOUS TECHNOLOGY TRAINER MEMBERS IN AND OUT OF ROOM TO ASSIT pt BACK TO BED. BED ALARM REMAINS ON FOR SAFETY.
--- NOTE | 2021-11-09 00:10 | NUR ---
BED ALARMING. PATIENT GOT UP. PATIENT IS UP IN THE CHAIR RIGHT PAULIE, CHAIR ALARM ON.
--- NOTE | 2021-11-09 00:24 | NUR ---
CHAIR ALARMING PATIENT GOT UP STATED HE IS GOING HOME. PATIENT REDIRECTED TO GO BACK TO CHAIR. PATIENT IS BACK ON THE CHAIR. CHAIR ALARM SET.
--- NOTE | 2021-11-09 01:05 | NUR ---
pt RESTLESS IN CHAIR, MULTIPLE ATTEMPTS TO GET OUT OF CHAIR. WHEN ASKED IF pt IS HAVING PAIN, pt STATES, "YES, RIGHT IN HERE" AND POINTS TO LEFT HIP. PRN TYLENOL GIVEN, SEE EMAR. CHAIR ALARM ON FOR SAFETY AND CALL LIGHT IN REACH.
--- NOTE | 2021-11-09 01:24 | NUR ---
SPO2 DIPPING INTO THE LOW 70'S, pt REPORTS SOME SOB. 10-15LNONREBREATHER ADDED TO 15LHFNC, SPO2 RAFAT TO UPPER 90'S. pt pt VOIDING VIA URINAL, 200MLS CONCENTRTED YELLOW URINE NOTED. pt RELUCTANT BUT ALLOWS THIS RN TO REPOSITION pt, PILLOW REMOVED FROM LEFT SIDE AND NOW UNDER RIGHT SIDE. BLE ALSO ELEVATED. NONREBREATHER NOW REMOVED, SPO2 REMAINS WNL- LOW TO MID 90'S. CALL LIGHT IN REACH.
--- NOTE | 2021-11-09 02:24 | NUR ---
pt INCONTINENT OF URINE, ANAT WATERMAN IN ROOM ASSISTING pt.
--- NOTE | 2021-11-09 02:40 | NUR ---
BED ALARM WENT OFF. PATIENT WAS UP. PANTS AND SOCKS ARE WET. BED IS WET. CHANGED BED LINEN. CHANGED PANTS, SOCKS AND PULL UPS. PATIENT IS UP IN THE CHAIR NOW. CHAIR ALARM ON.
--- NOTE | 2021-11-09 03:15 | NUR ---
pt NOTICED WALKING IN BATHROOM. ASSISTED BACK TO BED STATES "I DON'T FEEL WELL, MY HEAD HURTS AND MY BACK HURTS." WARM BLANKETS PROVIDED. BED ALARM ON. LIGHTS OFF IN ROOM. SLEEP MUSIC PLAYING IN ROOM.
--- NOTE | 2021-11-09 03:59 | NUR ---
pt RESTING IN BED WITH EYES CLOSED, RR EVEN AND UNLABORED. BED ALARM ON FOR SAFETY, CALL LIGHT IN REACH.
--- NOTE | 2021-11-09 05:39 | NUR ---
CHAIR ALARM GOING OFF, pt UP AND WALKING TO BATHROOM, INCONT OF URINE, pt VERBALIZES ANGER TOWARDS THIS RN CLAIMING THIS RN IS IN HIS HOUSE. WHEN ASKED IF pt WAS IN PAIN, STATES STATES, "NO ARE YOU? DO YOU WANT SOME?". pt THEN YELLS AT THIS RN AND STATES, "YOU BETTER GET YOUR ASS OUT OF MY WAY". pt SAT IN BATHROOM FOR A FEW MINUTES , DRY ATTENDS IN PLACE. pt THEN BEGAN WALKING OUT TOWARDS HALLWAY AND CLAPS THE AIR CLOSE TO THIS RN'S FACE, pt ABLE TO BE COAXED BY THIS RN AND MOE AGUAYO BACK TO BED, pt THEN APOLIGIZED. PRN AGITATION, PAIN, AND SCHEDULED 0700 MED GIVEN, SEE EMAR. pt THEN LAYED DOWN IN BED WITH EYES CLOSED, VSS. BRIEF ASSESSMENT COMPLETE, BED ALARM ON. CALL LIGHT IN REACH.
--- NOTE | 2021-11-09 07:37 | NUR ---
Shift report received from MOE Del Valle, pt resting safely in bed w/ call light in reach, bed alarm on, and eyes closed. RR even and unlabored on RA
--- NOTE | 2021-11-09 08:07 | NUR ---
BED ALARM SOUNDING. PT GETTING UP FROM BED. THIS RN TO ROOM. PT REMAINS DISORIENTED. UNSURE OF NEEDS. STATES BOTH HE WANTS TO USE THE RESTROOM AND HE DOES NOT WANT TO USE RESTROOM. STAND BY ASSIST WITH FWW UP TO RESTROOM. PT VOIDS WITHOUT ISSUE. DEPENDS WET, CHANGED, CLAY CARE DONE. BARRIER CREAM APPLIED TO CLAY AND GLUTEAL AREAS. FRESH DEPENES IN PLACED, PANTS IN PLACE. PT DELINCES FACE WASH AND ORAL CARE. STAND BY ASSIST UP TO CHAIR. CHAIR ALARM ON, WARM BLANKET PROVIDED. CALL LIGHT WITHIN REACH. PTS PRIMARY RN UPDATED.
[2021-11-09] MEDS ORDERED: OLANZAPINE20 MG PO (09:19)
--- NOTE | 2021-11-09 09:51 | NUR ---
PATIENT UP TO BATHROOM AND BACK TO CHAIR, SBA FWW. THIS MONTESSORI TEACHER AND MONTESSORI TEACHER RUSTAM IN TO GET PATIENT READY FOR DISCHARGE. VITALS AND I&O'S CHARTED. CALL LIGHT IN REACH. NO FURTHER NEEDS AT THIS TIME.
--- NOTE | 2021-11-09 10:06 | NUR ---
SBA to bathroom, pt able to void urnie and stool. Pt now back in chair sitting up safely w/ call light in reach and chair alarm on. Morning assesment complete and scheduled meds given per provider order. VSS on RA. ANAT Braxton and Rosana in room to assist pt w/ dressing and packing up belongings as pt is discharging this AM to a SNF.
--- NOTE | 2021-11-09 10:34 | NUR ---
Report called to facility, spoke w/ manager ship Katia.
== END 2021-11-09 09:55 | DRG 521 ==
LOC: MS 02:57
PROVIDERS: ADMIT Specialist; ATTEND Specialist
PROC: 0SRS0JZ Replacement of Left Hip Joint, Femoral Surface with Synthetic Substitute, Open Approach (ICD-10-PCS; principal; 2021-10-09 08:30)
DX: S72.002A Fracture of unspecified part of neck of left femur, initial encounter for closed fracture (principal); U07.1 COVID-19; F02.81 Dementia in other diseases classified elsewhere, unspecified severity, with behavioral disturbance; N17.9 Acute kidney failure, unspecified; I48.21 Permanent atrial fibrillation; G30.9 Alzheimer's disease, unspecified; K21.9 Gastro-esophageal reflux disease without esophagitis; Z66 Do not resuscitate; I25.10 Atherosclerotic heart disease of native coronary artery without angina pectoris; N18.9 Chronic kidney disease, unspecified; I12.9 Hypertensive chronic kidney disease with stage 1 through stage 4 chronic kidney disease, or unspecified chronic kidney disease; E78.00 Pure hypercholesterolemia, unspecified; Z79.01 Long term (current) use of anticoagulants; Z79.899 Other long term (current) drug therapy; W18.39XA Other fall on same level, initial encounter
CPT/HCPCS: 01210; 72170; 80048; 80053; 83735; 93005; 93010; 94760; 97110; 97116; 97162; 97530; A9270; C1776; C9803; J0690; J1100; J1170; J1630; J1885; J2001; J2370; J2405; J2704; J3010; J3480; J7040; U0003